=== PATIENT | female | born 1935 | race Caucasian/White ===

== ENCOUNTER → 2016-10-13 | Emergency (ER) | payer MEDICARE, BC ==
--- NOTE | 2016-10-13 16:27 | RAD ---
Indication: Near syncope. History of RIGHT breast cancer. Comparison: December 30, 2014 chest radiograph and December 03, 2013 CT. Technique: Sitting AP chest 1610 hours Report: Elevated lung volumes with both coarsening and rarefaction of the interstitial markings. Small upper lung zone calcified granulomas and small calcified hilar lymph nodes. No suspicious focal pulmonary lesion, pleural effusion, pneumothorax. Cardiomegaly. Unremarkable central pulmonary vasculature. RIGHT axillary surgical clips. IMPRESSION: Stigmata of chronic obstructive pulmonary disease and emphysema as well as prior granulomatous disease. Cardiomegaly. No acute cardiopulmonary process evident.
[2016-10-13 16:32] LABS: Hematocrit 38 % (35-47); Hemoglobin 12.5 g/dl (12.0-16.0); Mean Corpuscular HGB Conc 33 g/dl (31-36); Mean Corpuscular Hemoglobin 31 pg (27-31); Mean Corpuscular Volume 95 fL (80-97); Mean Platelet Volume 9 um3 (7.4-10.4); Red Blood Count 4.03 10^6/ul (4.0-5.4); Red Cell Distribution Width 14 % (10.5-15); White Blood Count 5.3 10^3/ul (3.5-10.8)
--- NOTE | 2016-10-13 16:41 | RAD ---
Indication: Near syncope. Comparison: February 13, 2011 MRI. Technique: Noncontrast CT vertex of skull through foramen magnum. Report: Unremarkable cerebral sulci. Mild prominence of the ventricles and cerebellar fissures reflecting atrophy. Patent basal cisterns. Decreased density in the periventricular and subcortical white matter while non-specific is most likely due to chronic microangiopathy corresponding with equivalent findings on the 2011 MRI. Negative for hobbs matter white matter obscuration, intra or extra-axial hemorrhage, or mass effect. Unremarkable orbital contents. Indolent thickening of the inner table of the frontal bone. No suspicious calvarial or skull base lesion evident. Grossly clear paranasal sinuses and mastoid air spaces. Unremarkable scalp. IMPRESSION: 1. No acute intracranial process evident. 2. Involutional change and extensive stigmata of probable chronic small vessel ischemic disease similar to the previous MRI.
[2016-10-13 16:47] LABS: BUN/Creatinine Ratio 29.4 (8-20); C Reactive Protein 8.82 mg/L (< 5.00); Calcium 9.7 mg/dL (8.6-10.3); EGFR Non-African American 64.5 (>60); Globulin 4.3 g/dL (2-4); Magnesium 2.1 mg/dL (1.9-2.7); Potassium 4.1 mmol/L (3.5-5.0); Total Bilirubin 0.3 mg/dL (0.2-1.0); Total Protein 8.3 g/dL (6.4-8.9)
[2016-10-13 16:48] LABS: Troponin I 0.02 ng/mL (<0.04)
[2016-10-13 17:15] LABS: TSH (Thyroid Stimulating Horm) 1.14 mcIU/mL (0.34-5.60)
[2016-10-13 17:22] VITALS: BP 151/65
[2016-10-13 17:22] LABS: Urine Bilirubin Negative (Negative); Urine Glucose Negative (Negative); Urine Nitrite Negative (Negative)
--- NOTE | 2016-10-13 18:29 | ED ---
Jacquelyn Lopez Rebecca, scribed for Davidson Gonzales MD on 10/13/16 at 1524 . Syncope/Near Syncope - HPI Summary HPI Summary: Pt is a 81 y/o F BIBA who presents to ED c/o dizziness s/p near syncopal episode. Sx began suddenly today and have been constant since onset. Pt reports dizziness leading to a near syncopal episode with her vision "blacking out." Episode occurred while standing. Sx alleviated by sitting down, aggravated by nothing. Reports feelin better than she did at onset. Denies LOC, CP, palpitations, SOB, CARO, blurry vision. Prior episodes of dizziness when she hasn' t eaten, but never with her vision blacking out. - History Of Current Complaint Time Seen by Provider: 10/13/16 15:15 Hx Obtained From: Patient Onset/Duration: Sudden Onset Timing: Constant Activity At Onset: Other - Standing Aggravating Factor(s): Nothing Alleviating Factor(s): Rest - sitting Associated Signs And Symptoms: Dizzy Related History: Similar Episode/Dx as - Allergies/Home Medications Allergies/Adverse Reactions: Allergies Allergy/AdvReac Type Severity Reaction Status Date / Time Sulfa Drugs Allergy Unknown Unknown Verified 01/11/14 15:14 Reaction Details PMH/Surg Hx/FS Hx/Imm Hx Endocrine/Hematology History: Denies: Hx Diabetes Cardiovascular History: Reports: Hx Hypertension, Hx Valvular Heart Disease Denies: Hx Congestive Heart Failure - possible Respiratory History: Reports: Other Respiratory Problems/Disorders - fluid in lungs Denies: Hx Asthma, Hx Chronic Obstructive Pulmonary Disease (COPD) History: Reports: Other Problems/Disorders - uti recently Musculoskeletal History: Reports: Other Musculoskeletal History - MS Neurological History: Reports: Other Neuro Impairments/Disorders - ms dx 1999 - Cancer History Cancer Type, Location and Year: breast ca right Hx Chemotherapy: No Hx Radiation Therapy: Yes - BREAST - Surgical History Surgery Procedure, Year, and Place: lumpectomy right 2004 with radiation, thyroidectomy, [place] 2003, tonsilectomy - Immunization History Date of Tetanus Vaccine: Up to date Date of Influenza Vaccine: Fall 2012 Infectious Disease History: No Infectious Disease History: Denies: Traveled Outside the [place] in Last 30 Days - Family History Known Family History: Positive: Hypertension - Mother, Other - MS - Social History Alcohol Use: None Substance Use Type: Reports: None Review of Systems Positive: Other - vision "blacking out" temporarily. Negative: Blurred Vision Negative: Palpitations, Chest Pain Negative: Shortness Of Breath Neurological: Other - Dizziness Positive: Syncope - Near syncope; Negative LOC. Negative: Headache All Other Systems Reviewed And Are Negative: Yes Physical Exam - Summary Physical Exam Summary: VITAL SIGNS: Reviewed. GENERAL: Patient is a well developed and nourished female who is lying comfortable in the stretcher. Patient is not in any acute respiratory distress. HEAD AND FACE: No signs of trauma. No ecchymosis, hematomas or skull depressions. No sinus tenderness. EYES: PERRLA, EOMI x 2, No injected conjunctiva, no nystagmus. No photophobia. EARS: Hearing grossly intact. Ear canals and tympanic membranes are within normal limits. MOUTH: Oropharynx within normal limits. NECK: Supple, trachea is midline, no adenopathy, no JVD, no carotid bruit, no c- spine tenderness, neck with full ROM. No meningeal signs, no Kernig's or brudzinskis signs. CHEST: Symmetric, no tenderness at palpation LUNGS: Clear to auscultation bilaterally. No wheezing or crackles. CVS: Regular rate and rhythm, S1 and S2 present, no murmurs or gallops appreciated. ABDOMEN: Soft, non-tender. No signs of distention. No rebound no guarding, and no masses palpated. Bowel sounds are normal. EXTREMITIES: FROM in all major joints, no edema, no cyanosis or clubbing. NEURO: Alert and oriented x 3. No acute neurological deficits. Speech is normal and follows commands. SKIN: Dry and warm Triage Information Reviewed: Yes Vital Signs On Initial Exam: Initial Vitals Temp Pulse Resp BP Pulse Ox 98.3 F 58 16 172/60 98 10/13/16 15:18 10/13/16 15:18 10/13/16 15:18 10/13/16 15:18 10/13/16 15:18 Vital Signs Reviewed: Yes Diagnostics - Vital Signs Vital Signs Temp Pulse Resp BP Pulse Ox 10/13/16 17:19 66 151/65 10/13/16 17:17 56 178/57 10/13/16 17:15 55 180/56 10/13/16 16:00 58 98 02/05/17 15:30 58 19 170/58 98 10/13/16 15:20 23 10/13/16 15:18 98.3 F 58 16 172/60 98 - Laboratory Lab Results: Lab Results 10/13/16 10/13/16 10/13/16 Range/Units 16:20 16:20 16:20 WBC 5.3 (3.5-10.8) 10^3/ul RBC 4.03 (4.0-5.4) 10^6/ul Hgb 12.5 (12.0-16.0) g/dl Hct 38 (35-47) % MCV 95 (80-97) fL MCH 31 (27-31) pg MCHC 33 (31-36) g/dl RDW 14 (10.5-15) % Plt Count 227 (150-450) 10^3/ul MPV 9 (7.4-10.4) um3 Neut % (Auto) 62.6 (38-83) % Lymph % (Auto) 22.1 L (25-47) % [place] % (Auto) 13.4 H (1-9) % Eos % (Auto) 0.5 (0-6) % Baso % (Auto) 1.4 (0-2) % Absolute Neuts (auto) 3.3 (1.5-7.7) 10^3/ul Absolute Lymphs (auto) 1.2 (1.0-4.8) 10^3/ul Absolute Monos (auto) 0.7 (0-0.8) 10^3/ul Absolute Eos (auto) 0 (0-0.6) 10^3/ul Absolute Basos (auto) 0.1 (0-0.2) 10^3/ul Absolute Nucleated RBC 0.01 10^3/ul Nucleated RBC % 0.1 Sodium 128 L (133-145) mmol/L Potassium 4.1 (3.5-5.0) mmol/L Chloride 95 L (101-111) mmol/L Carbon Dioxide 24 (22-32) mmol/L Anion Gap 9 (2-11) mmol/L BUN 25 H (6-24) mg/dL Creatinine 0.85 (0.51-0.95) mg/dL Est GFR ( Amer) 83.0 (>60) Est GFR (Non-Af Amer) 64.5 (>60) BUN/Creatinine Ratio 29.4 H (8-20) Glucose 108 H (70-100) mg/dL Lactic Acid 0.9 (0.5-2.0) mmol/L Calcium 9.7 (8.6-10.3) mg/dL Magnesium 2.1 (1.9-2.7) mg/dL Total Bilirubin 0.30 (0.2-1.0) mg/dL AST 18 (13-39) U/L ALT 14 (7-52) U/L Alkaline Phosphatase 89 (34-104) U/L Total Creatine Kinase 69 (10-223) U/L Troponin I 0.02 (<0.04) ng/mL C-Reactive Protein 8.82 H (< 5.00) mg/L B-Natriuretic Peptide ( - 100) pg/mL Total Protein 8.3 (6.4-8.9) g/dL Albumin 4.0 (3.2-5.2) g/dL Globulin 4.3 H (2-4) g/dL Albumin/Globulin Ratio 0.9 L (1-3) TSH 1.14 (0.34-5.60) mcIU/mL Urine Color Urine Appearance Urine pH (5-9) Ur Specific [place] (1.010-1.030) Urine Protein (Negative) Urine Ketones (Negative) Urine Blood (Negative) Urine Nitrate (Negative) Urine Bilirubin (Negative) Urine Urobilinogen (Negative) Ur Leukocyte Esterase (Negative) Urine Glucose (Negative) 10/13/16 10/13/16 Range/Units 16:20 17:05 WBC (3.5-10.8) 10^3/ul RBC (4.0-5.4) 10^6/ul Hgb (12.0-16.0) g/dl Hct (35-47) % MCV (80-97) fL MCH (27-31) pg MCHC (31-36) g/dl RDW (10.5-15) % Plt Count (150-450) 10^3/ul MPV (7.4-10.4) um3 Neut % (Auto) (38-83) % Lymph % (Auto) (25-47) % [place] % (Auto) (1-9) % Eos % (Auto) (0-6) % Baso % (Auto) (0-2) % Absolute Neuts (auto) (1.5-7.7) 10^3/ul Absolute Lymphs (auto) (1.0-4.8) 10^3/ul Absolute Monos (auto) (0-0.8) 10^3/ul Absolute Eos (auto) (0-0.6) 10^3/ul Absolute Basos (auto) (0-0.2) 10^3/ul Absolute Nucleated RBC 10^3/ul Nucleated RBC % Sodium (133-145) mmol/L Potassium (3.5-5.0) mmol/L Chloride (101-111) mmol/L Carbon Dioxide (22-32) mmol/L Anion Gap (2-11) mmol/L BUN (6-24) mg/dL Creatinine (0.51-0.95) mg/dL Est GFR ( Amer) (>60) Est GFR (Non-Af Amer) (>60) BUN/Creatinine Ratio (8-20) Glucose (70-100) mg/dL Lactic Acid (0.5-2.0) mmol/L Calcium (8.6-10.3) mg/dL Magnesium (1.9-2.7) mg/dL Total Bilirubin (0.2-1.0) mg/dL AST (13-39) U/L ALT (7-52) U/L Alkaline Phosphatase (34-104) U/L Total Creatine Kinase (10-223) U/L Troponin I (<0.04) ng/mL C-Reactive Protein (< 5.00) mg/L B-Natriuretic Peptide 239 H ( - 100) pg/mL Total Protein (6.4-8.9) g/dL Albumin (3.2-5.2) g/dL Globulin (2-4) g/dL Albumin/Globulin Ratio (1-3) TSH (0.34-5.60) mcIU/mL Urine Color Straw Urine Appearance Clear Urine pH 7.0 (5-9) Ur Specific [place] 1.006 L (1.010-1.030) Urine Protein Negative (Negative) Urine Ketones Negative (Negative) Urine Blood Negative (Negative) Urine Nitrate Negative (Negative) Urine Bilirubin Negative (Negative) Urine Urobilinogen Negative (Negative) Ur Leukocyte Esterase Negative (Negative) Urine Glucose Negative (Negative) Result Diagrams: 10/13/16 16:20 10/13/16 16:20 Lab Statement: Any lab studies that have been ordered have been reviewed, and results considered in the medical decision making process. - Radiology CXR Xray Interpretation: No Acute Changes - Stigmata of chronic obstructive pulmonary disease and emphysema as well as prior granulomatous disease. Cardiomegaly. No acute cardiopulmonary process evident. Radiology Interpretation Completed By: Radiologist - CT Brain CT CT Interpretation Completed By: Radiologist - EKG 1549 Cardiac Rate: Bradycardia - 56 bpm EKG Rhythm: Sinus Bradycardia ST Segment: Non-Specific - No ST elevations, slight ST depressions in V5 and V6 Re-Evaluation - Re-Evaluation First Eval Re-Evaluation Time: 17:37 Change: Improved Comment: Pt is feeling significantly better. Course/Dx Assessment/Plan: Pt is a 81 y/o F BIBA who presents to ED c/o dizziness s/p near syncopal episode. Sx began suddenly today and have been constant since onset. Pt reports dizziness leading to a near syncopal episode with her vision "blacking out." Episode occurred while standing. Sx alleviated by sitting down, aggravated by nothing. Reports feeling better than she did at onset. Denies LOC , CP, palpitations, SOB, CARO, blurry vision. Prior episodes of dizziness when she hasn't eaten, but never with her vision blacking out. Patient reports that when she does not eat she has this frequent fainting episodes. Today she was trying to prevent this issue and drank milk but right before she finish drinking the milk she had this episode which lasted for a few minutes. Since she has not have any other episodes and she is back to normal. She has been asymptomatic n the ED. Blood work wnl except for her chronic hyponatremia and slight increase in her glucose. Head CT impression: no acute intracranial pathology. CXR impression: Stigmata for COPD, cardiomegaly and no acute findings. Orthostatics are found wnl. She is eating and drinking in the ED w/ o any other symptoms. She is ambulating w/o any other complaint. I discussed all the findings and test results with the patient. Patient was instructed to return to the emergency room immediately if any of the symptoms return or worsens. Patient understands and agrees. Plan of care was discussed with the patient and patient understands and agrees with the plan of care. All questions were answered at patient satisfaction. There were no further complaints or concerns. Patient is alert and oriented x 3. Patient vital signs are stable. Patient is to follow up with primary care physician in the next 2 to 3 days. Patient understands and agrees. - Diagnoses Differential Diagnosis/HQI/PQRI: Positive: Cerebral Vascular Accident, Hypoglycemia, Vasovagal Episode Provider Diagnoses: Vasovagal episode Discharge - Discharge Plan Condition: Stable Disposition: HOME Patient Education Materials: Syncope (ED) Referrals: Pallavi Yan MD [Primary Care Provider] - 3 Days (Follow up with your primary care physician in the next 3 days. ) The documentation as recorded by the Jacquelyn lara Rebecca accurately reflects the service I personally performed and the decisions made by , Davidson Gonzales MD.
== END | disposition home or self-care (01) ==
LOC: ED 15:08
DX: R55 Syncope and collapse (principal); R42 Dizziness and giddiness
CPT/HCPCS: 36415; 70450; 71010; 80053; 81003; 82550; 83605; 83735; 83880; 84443; 84484; 85025; 86140; 93005; 99283

== ENCOUNTER 2016-10-19 10:17 | Emergency (ER) | payer MEDICARE, BC ==
[2016-10-19 12:40] LABS: Hematocrit 37 % (35-47); Hemoglobin 12.4 g/dl (12.0-16.0); Mean Corpuscular HGB Conc 33 g/dl (31-36); Mean Corpuscular Hemoglobin 32 pg (27-31); Mean Corpuscular Volume 94 fL (80-97); Mean Platelet Volume 9 um3 (7.4-10.4); Red Blood Count 3.93 10^6/ul (4.0-5.4); Red Cell Distribution Width 14 % (10.5-15); White Blood Count 6.7 10^3/ul (3.5-10.8)
[2016-10-19 12:45] LABS: Urine Bilirubin Negative (Negative); Urine Glucose Negative (Negative); Urine Nitrite Negative (Negative)
[2016-10-19 12:52] LABS: Albumin 4.1 g/dL (3.2-5.2); BUN/Creatinine Ratio 25.7 (8-20); Calcium 9.7 mg/dL (8.6-10.3); EGFR African American 103.8 (>60); EGFR Non-African American 80.7 (>60); Globulin 4.5 g/dL (2-4); Magnesium 2.1 mg/dL (1.9-2.7); Potassium 4.1 mmol/L (3.5-5.0); Total Bilirubin 0.4 mg/dL (0.2-1.0); Total Protein 8.6 g/dL (6.4-8.9)
[2016-10-19 13:22] LABS: TSH (Thyroid Stimulating Horm) 1.11 mcIU/mL (0.34-5.60)
[2016-10-19 14:49] VITALS: BP 128/75
--- NOTE | 2016-10-19 16:07 | ED ---
Syncope/Near Syncope - HPI Summary HPI Summary: Patient arrives to ED with CC of feeling weak and fatigued. Denies LOC, syncope or blacking out. She was seen in ED last week for similar symptoms where a CT brain, UA and labs were obtained. All WNL. She was instructed to follow up with PCP. She was seen by her PCP 2 days ago and had a good check up. Patient states she told her PCP she felt weak since being on so many HTN medications and her DBP was too low. Patient takes her BP at home and this number has been running between 55-65 per patient. She prefers to not be on so many and states this is the reason she is weak. She has a PMHx of relapsing remitting MS which she is followed by Dr. Araya and states this has been stable for years. MS causes her L leg and R arm to have generalized weakness, and this has not changed in the last several years. She uses a walker at baseline is unable to walk far without feeling weak. Her PCP is Dr. Yan and states she is able to follow up with her next week if needed. She is also followed by Dr. George for cardiology and has appt November 06. - History Of Current Complaint Chief Complaint: EDGeneral Time Seen by Provider: 10/19/16 10:48 Hx Obtained From: Patient Onset/Duration: Sudden Onset Timing: Constant Context: Other Activity At Onset: Unknown Associated Head Trauma: Yes Aggravating Factor(s): Nothing Alleviating Factor(s): Nothing Associated Signs And Symptoms: Lightheadedness, Weakness Related History: Similar Episode/Dx as - last week episode of weakness Frequency: Episodes x___ - 2, Episodes Lasting ____ (in Mins/Days/Weeks/Years) - 4-5 minutes/2 days over course of 1 week - Risk Factors Cardiac Risk Factors: Hypertension, Elevated Lipids, Family History, CAD Dysrhythmia Risk Factors: Age Greater Than 45, Underlying CAD Risk Factor(s): ASA, Plavix - Allergies/Home Medications Allergies/Adverse Reactions: Allergies Allergy/AdvReac Type Severity Reaction Status Date / Time Sulfa Drugs Allergy Unknown Unknown Verified 01/11/14 15:14 Reaction Details PMH/Surg Hx/FS Hx/Imm Hx Previously Healthy: Yes - Patient has MS, CAD, HTN Endocrine/Hematology History: Denies: Hx Diabetes Cardiovascular History: Reports: Hx Hypertension, Hx Valvular Heart Disease Denies: Hx Congestive Heart Failure - possible Respiratory History: Reports: Other Respiratory Problems/Disorders - fluid in lungs Denies: Hx Asthma, Hx Chronic Obstructive Pulmonary Disease (COPD) History: Reports: Other Problems/Disorders - uti recently Musculoskeletal History: Reports: Other Musculoskeletal History - MS Neurological History: Reports: Other Neuro Impairments/Disorders - ms dx 1999 - Cancer History Cancer Type, Location and Year: breast ca right Hx Chemotherapy: No Hx Radiation Therapy: Yes - BREAST - Surgical History Surgery Procedure, Year, and Place: lumpectomy right 2004 with radiation, thyroidectomy, he[place] 2003, tonsilectomy - Immunization History Date of Tetanus Vaccine: Up to date Date of Influenza Vaccine: Fall 2012 Infectious Disease History: No Infectious Disease History: Denies: Traveled Outside the [place] in Last 30 Days - Family History Known Family History: Positive: Hypertension - Mother, Other - MS - Social History Occupation: Retired Lives: With Family Alcohol Use: None Hx Substance Use: No Substance Use Type: Reports: None Smoking Status (MU): Never Smoked Tobacco Review of Systems Positive: Fatigue Eyes: Negative Cardiovascular: Negative Respiratory: Negative Gastrointestinal: Negative Positive: no symptoms reported, see HPI Musculoskeletal: Negative Skin: Negative Positive: Weakness Psychological: Normal All Other Systems Reviewed And Are Negative: Yes Physical Exam Triage Information Reviewed: Yes Vital Signs On Initial Exam: Initial Vitals Temp Pulse Resp BP Pulse Ox 98.1 F 64 15 185/60 99 10/19/16 10:20 10/19/16 10:20 10/19/16 10:20 10/19/16 10:20 10/19/16 10:20 Vital Signs Reviewed: Yes Appearance: Positive: Well-Appearing, No Pain Distress, Cachectic Skin: Positive: Warm, Skin Color Reflects Adequate Perfusion, Dry Head/Face: Positive: Normal Head/Face Inspection Eyes: Positive: Normal, FRANCES Neck: Positive: Nontender Respiratory/Lung Sounds: Positive: Breath Sounds Present, Decreased Breath Sounds Cardiovascular: Positive: Normal Abdomen Description: Positive: Nontender, No Organomegaly, Soft Bowel Sounds: Positive: Present Musculoskeletal: Positive: Normal, Limited @ - strength limited at baseline d/t MS Neurological: Positive: Speech Normal Psychiatric: Positive: Normal AVPU Assessment: Verbal (Reponds To) - [place] Coma Scale Coma Scale Total: 15 Diagnostics - Vital Signs Vital Signs Temp Pulse Resp BP Pulse Ox 10/19/16 14:49 97.9 F 10/19/16 14:30 66 17 128/75 97 10/19/16 14:00 68 17 166/59 98 10/19/16 13:00 156/64 10/19/16 12:30 64 16 156/67 96 10/19/16 12:00 62 163/57 97 10/19/16 11:30 65 148/53 96 10/19/16 11:27 63 96 10/19/16 10:20 98.1 F 64 15 185/60 99 - Laboratory Lab Results: Lab Results 10/19/16 10/19/16 10/19/16 Range/Units 11:00 12:23 12:23 WBC 6.7 (3.5-10.8) 10^3/ul RBC 3.93 L (4.0-5.4) 10^6/ul Hgb 12.4 (12.0-16.0) g/dl Hct 37 (35-47) % MCV 94 (80-97) fL MCH 32 H (27-31) pg MCHC 33 (31-36) g/dl RDW 14 (10.5-15) % Plt Count 234 (150-450) 10^3/ul MPV 9 (7.4-10.4) um3 Neut % (Auto) 69.5 (38-83) % Lymph % (Auto) 21.0 L (25-47) % [place] % (Auto) 7.7 (1-9) % Eos % (Auto) 0.6 (0-6) % Baso % (Auto) 1.2 (0-2) % Absolute Neuts (auto) 4.6 (1.5-7.7) 10^3/ul Absolute Lymphs (auto) 1.4 (1.0-4.8) 10^3/ul Absolute Monos (auto) 0.5 (0-0.8) 10^3/ul Absolute Eos (auto) 0 (0-0.6) 10^3/ul Absolute Basos (auto) 0.1 (0-0.2) 10^3/ul Absolute Nucleated RBC 0 10^3/ul Nucleated RBC % 0 INR (Anticoag Therapy) 0.85 L (0.89-1.11) Sodium (133-145) mmol/L Potassium (3.5-5.0) mmol/L Chloride (101-111) mmol/L Carbon Dioxide (22-32) mmol/L Anion Gap (2-11) mmol/L BUN (6-24) mg/dL Creatinine (0.51-0.95) mg/dL Est GFR ( Amer) (>60) Est GFR (Non-Af Amer) (>60) BUN/Creatinine Ratio (8-20) Glucose (70-100) mg/dL Lactic Acid (0.5-2.0) mmol/L Calcium (8.6-10.3) mg/dL Magnesium (1.9-2.7) mg/dL Total Bilirubin (0.2-1.0) mg/dL AST (13-39) U/L ALT (7-52) U/L Alkaline Phosphatase (34-104) U/L Total Protein (6.4-8.9) g/dL Albumin (3.2-5.2) g/dL Globulin (2-4) g/dL Albumin/Globulin Ratio (1-3) TSH (0.34-5.60) mcIU/mL Urine Color Straw Urine Appearance Clear Urine pH 7.0 (5-9) Ur Specific [place] 1.006 L (1.010-1.030) Urine Protein Negative (Negative) Urine Ketones Negative (Negative) Urine Blood Negative (Negative) Urine Nitrate Negative (Negative) Urine Bilirubin Negative (Negative) Urine Urobilinogen Negative (Negative) Ur Leukocyte Esterase Negative (Negative) Urine Glucose Negative (Negative) 10/19/16 10/19/16 Range/Units 12:23 12:23 WBC (3.5-10.8) 10^3/ul RBC (4.0-5.4) 10^6/ul Hgb (12.0-16.0) g/dl Hct (35-47) % MCV (80-97) fL MCH (27-31) pg MCHC (31-36) g/dl RDW (10.5-15) % Plt Count (150-450) 10^3/ul MPV (7.4-10.4) um3 Neut % (Auto) (38-83) % Lymph % (Auto) (25-47) % [place] % (Auto) (1-9) % Eos % (Auto) (0-6) % Baso % (Auto) (0-2) % Absolute Neuts (auto) (1.5-7.7) 10^3/ul Absolute Lymphs (auto) (1.0-4.8) 10^3/ul Absolute Monos (auto) (0-0.8) 10^3/ul Absolute Eos (auto) (0-0.6) 10^3/ul Absolute Basos (auto) (0-0.2) 10^3/ul Absolute Nucleated RBC 10^3/ul Nucleated RBC % INR (Anticoag Therapy) (0.89-1.11) Sodium 130 L (133-145) mmol/L Potassium 4.1 (3.5-5.0) mmol/L Chloride 96 L (101-111) mmol/L Carbon Dioxide 26 (22-32) mmol/L Anion Gap 8 (2-11) mmol/L BUN 18 (6-24) mg/dL Creatinine 0.70 (0.51-0.95) mg/dL Est GFR ( Amer) 103.8 (>60) Est GFR (Non-Af Amer) 80.7 (>60) BUN/Creatinine Ratio 25.7 H (8-20) Glucose 109 H (70-100) mg/dL Lactic Acid 0.8 (0.5-2.0) mmol/L Calcium 9.7 (8.6-10.3) mg/dL Magnesium 2.1 (1.9-2.7) mg/dL Total Bilirubin 0.40 (0.2-1.0) mg/dL AST 16 (13-39) U/L ALT 12 (7-52) U/L Alkaline Phosphatase 90 (34-104) U/L Total Protein 8.6 (6.4-8.9) g/dL Albumin 4.1 (3.2-5.2) g/dL Globulin 4.5 H (2-4) g/dL Albumin/Globulin Ratio 0.9 L (1-3) TSH 1.11 (0.34-5.60) mcIU/mL Urine Color Urine Appearance Urine pH (5-9) Ur Specific [place] (1.010-1.030) Urine Protein (Negative) Urine Ketones (Negative) Urine Blood (Negative) Urine Nitrate (Negative) Urine Bilirubin (Negative) Urine Urobilinogen (Negative) Ur Leukocyte Esterase (Negative) Urine Glucose (Negative) Result Diagrams: 10/19/16 12:23 10/19/16 12:23 Lab Statement: Any lab studies that have been ordered have been reviewed, and results considered in the medical decision making process. Course/Dx Course Of Treatment: Patient seen in ED last week for similar complaint of weakness. CT brain and labs WNL. Patient encouraged to f/u with PCP. Patient saw PCP 2 days ago. Today with same complaint and stating her HTN medications are making her feel weak. She is encouraged to f/u with PCP Dr Yan or clinical research management associate Dr George again for possible med changes. Labs today WNL, urine is negative. Followed by Dr Araya for MS, although this is less likely an MS flare d/t her long history of MS stability. - Diagnoses Differential Diagnosis/HQI/PQRI: Positive: Cerebral Vascular Accident, Coronary Artery Disease, Hypoglycemia, Vasovagal Episode Provider Diagnoses: Weakness Discharge - Discharge Plan Condition: Stable Disposition: HOME Patient Education Materials: Hypotension (ED) Referrals: Pallavi Yan MD [Primary Care Provider] - Additional Instructions: As discussed, lab work was all within normal limits. Follow up with your PCP and clinical research management associate for potential BP medication change. Today, we did not change any of your medications. You do not have hypotension, however I have given you information per our discussion.
== END 2016-10-19 14:49 | disposition home or self-care (01) ==
LOC: ED 10:17
DX: R53.1 Weakness (principal); R42 Dizziness and giddiness; R53.83 Other fatigue
CPT/HCPCS: 36415; 80053; 81003; 83605; 83735; 84443; 85025; 85610; 93005; 99283

== ENCOUNTER 2017-04-18 06:06 | Inpatient (IN) | payer MEDICARE, BC ==
[2017-04-18] MEDS ORDERED: Morphine INJ* 2 MG/ML 1 ML SYRINGE IV ONE (06:23)
[2017-04-18] MEDS ORDERED: Morphine INJ* 4 MG/ML 1 ML SYRINGE IV ONE (07:17)
[2017-04-18] MEDS ORDERED: Ondansetron INJ* 2 MG/ML VIAL IV ONE (07:17)
--- NOTE | 2017-04-18 07:58 | RAD ---
HISTORY: Fall, left arm pain COMPARISONS: None VIEWS: 2, Frontal internal rotation and external rotation views of the left humerus FINDINGS: BONE DENSITY: Normal. BONES: There is a probable fracture of the greater tuberosity of the humerus JOINTS: There is no arthropathy. ALIGNMENT: There is anterior-inferior dislocation of the humerus with respect to the glenoid fossa SOFT TISSUES: Unremarkable. OTHER FINDINGS: None. IMPRESSION: LEFT SHOULDER DISLOCATION WITH PROBABLE FRACTURE OF THE GREATER TUBEROSITY
[2017-04-18] MEDS ORDERED: NS 0.9% 250 ML* 250 ML IV SCH (08:00)
[2017-04-18] MEDS ORDERED: Midazolam* 1 MG/ML 2 ML VIAL (2 MG) ONE (08:37)
[2017-04-18] MEDS ORDERED: KETAMINE HCL* 50 MG/ML 10 ML VIAL ONE (08:37)
[2017-04-18] MEDS ORDERED: fentaNYL* 50 MCG/ML 2 ML VIAL (100 MCG VIAL) ONE (08:37)
[2017-04-18] MEDS ORDERED: Lidocaine 2% PF * 5 ML VIAL ONE (09:22)
[2017-04-18] MEDS ORDERED: Metoprolol Tartrate IV* 1 MG/ML 5 ML VIAL ONE (09:22)
--- NOTE | 2017-04-18 09:34 | RAD ---
HISTORY: Post reduction COMPARISONS: April 18, 2017 at 6:51 AM VIEWS: 1, single frontal view of the left shoulder FINDINGS: BONE DENSITY: There is diffuse osteopenia. BONES: Again noted is a probable fracture of the greater tuberosity JOINTS: There is no arthropathy. ALIGNMENT: On this single projection, there has been interval reduction of the left shoulder dislocation SOFT TISSUES: Unremarkable. OTHER FINDINGS: None. IMPRESSION: LIMITED SINGLE PROJECTION. INTERVAL REDUCTION OF LEFT SHOULDER DISLOCATION. PROBABLE FRACTURE OF THE GREATER TUBEROSITY
--- NOTE | 2017-04-18 12:05 | RAD ---
INDICATION: Left shoulder dislocation. Postreduction COMPARISON: AP left shoulder same date TECHNIQUE: A single Y view is submitted. FINDINGS: The Y-view shows that the humeral head appears normally positioned.
[2017-04-18 12:45] LABS: BUN/Creatinine Ratio 38.4 (8-20); Blood Urea Nitrogen 28 mg/dL (6-24); CO2 Carbon Dioxide 19 mmol/L (22-32); Chloride 101 mmol/L (101-111); EGFR African American 98.7 (>60); EGFR Non-African American 76.7 (>60); Glucose 116 mg/dL (70-100); Sodium 130 mmol/L (133-145)
[2017-04-18 12:47] LABS: Anion Gap 10 mmol/L (2-11)
[2017-04-18] MEDS ORDERED: oxyCODONE TAB* 5 MG TAB PO PRN (13:33)
[2017-04-18] MEDS ORDERED: Ibuprofen TAB* 600 MG PO PRN (13:33)
[2017-04-18] MEDS ORDERED: Amantadine LIQ* 50 MG/5 ML UDC PO PRN (13:43)
[2017-04-18 13:53] LABS: Hematocrit 37 % (35-47); Hemoglobin 12.2 g/dl (12.0-16.0); Mean Corpuscular HGB Conc 33 g/dl (31-36); Mean Corpuscular Hemoglobin 32 pg (27-31); Mean Corpuscular Volume 98 fL (80-97); Mean Platelet Volume 9 um3 (7.4-10.4); Red Blood Count 3.79 10^6/ul (4.0-5.4); Red Cell Distribution Width 14 % (10.5-15); White Blood Count 10.6 10^3/ul (3.5-10.8)
--- NOTE | 2017-04-18 14:08 | RAD ---
HISTORY: Cough COMPARISONS: December 26, 2014 VIEWS:1: Single frontal portable view of the chest at 2:00 PM FINDINGS: LINES AND TUBES: None. CARDIOMEDIASTINAL SILHOUETTE: The cardiomediastinal silhouette is normal for portable technique. PLEURA: The costophrenic angles are sharp. No pleural abnormalities are noted. LUNG PARENCHYMA: There is inflation. There is prominence of the central pulmonary vasculature ABDOMEN: The upper abdomen is clear. There is no subphrenic gas. BONES AND SOFT TISSUES: Degenerative changes are noted along the spine. IMPRESSION: HYPERINFLATION SUGGESTIVE OF COPD. PULMONARY VASCULAR CONGESTION.
[2017-04-18] MEDS: Heparin VIAL(*) 5000 UNITS/ML VIAL (FIVE THOUSAND) SUBCUT SCH ×2 (16:30→21:04)
--- NOTE | 2017-04-18 20:40 | HP ---
AMENDED REPORT NOW INCLUDES COSIGNER DESIGNATION - ESIGNED BEFORE ADJUSTMENT CC: Flor Romero NP * HISTORY AND PHYSICAL: DATE OF ADMISSION: 04/18/17 PRIMARY CARE PROVIDER: Flor Romero NP ATTENDING PHYSICIAN: Dr. Carlito Craig * (dictation provided by Esther Deleon NP ) CHIEF COMPLAINT: Fall with left shoulder pain. HISTORY OF PRESENT ILLNESS: Ms. Damian is an 82-year-old female with a past medical history of peripheral vascular disease, with angioplasty, on Plavix; hypertension; hyperlipidemia; multiple sclerosis; multivalvular disease with episodes of near syncope earlier this year, who presents today to the hospital with concern for fall at home resulting in left shoulder pain. Ms. Damian states that over the past couple of days, she has been feeling a little unwell. She reports having a cough and feeling weaker than usual. She had no fever, no chest pain, no shortness of breath, no nausea, vomiting, diarrhea, or abdominal pain, and felt that perhaps probably she had a mild viral illness. This morning at 4:00 a.m., she was getting up to go to the bathroom. She states that usually at that time in the morning, she is very weak related to her multiple sclerosis. She fell in the bathroom and had an immediate severe pain in her left shoulder. EMS was called and the patient was brought to the emergency room. Ms. Damian has had episodes of near syncope recently, for which she has been following with Dr. George. That workup has included an echocardiogram and Holter monitoring. The Holter monitoring notes that perhaps she has some secondary AV block, but the patient deferred further workup with implantable monitor, etc, as she had felt that she was doing better. Ms. Damian did not believe that she has synopsized and did not feel that she was lightheaded prior to the fall. She feels that it was purely mechanical fall. She states that she has help on a daily basis with an aide, who comes in to help her have breakfast in bed and to take her medications on a daily basis, so she can gain some strength in the morning before getting up to ambulate. In the emergency room, Ms. Damian's labs show a sodium of 130. She does have a history of low sodium and this is consistent with that. Her CBC is pending at this time. She did have a humerus x-ray that showed a left shoulder dislocation with a greater tuberosity fracture. This was reduced in the emergency room successfully by the ED providers. PAST MEDICAL HISTORY: 1. Hyperlipidemia. 2. Hypertension. 3. COPD versus question of chronic interstitial lung disease. 4. Peripheral vascular disease, status post angioplasty to the left leg. 5. Breast cancer, status post radiation and lumpectomy. 6. History of thyroid nodule. 7. Tonsillectomy. 8. Multiple sclerosis, diagnosed in 1970. 9. History of recent near syncopal episodes with echo and AV monitoring. 10. History of restrictive cardiomyopathy. 11. Moderate aortic stenosis. 12. Moderate mitral regurgitation. 13. Wpii-dx-gtsscdii tricuspid regurgitation. MEDICATIONS: 1. Tylenol p.r.n. 2. Calcium carbonate with vitamin D 1 tab as directed. 3. Cetirizine 5 mg p.o. daily. 4. Tylenol PM 2 tabs p.o. at bedtime. 5. Interferon 30 mcg IM weekly. 6. Citrucel Fiber laxative 1 tablespoon p.o. q.a.m. 7. Amantadine 100 mg in the a.m. and 50 mg at noon p.r.n. for increased energy. 8. Ascorbic acid 500 mg p.o. daily. 9. Atenolol 100 mg p.o. daily. 10. Cholecalciferol 1000 units p.o. q.a.m. 11. Clopidogrel 75 mg p.o. daily. 12. Diltiazem XR 240 mg p.o. q.a.m. 13. Gabapentin 600 mg p.o. bedtime. 14. Levothyroxine 50 mcg p.o. q.a.m. 15. Ritalin 10 mg p.o. daily. 16. MiraLAX 17 g p.o. daily p.r.n. constipation. 17. Ramipril 5 mg p.o. b.i.d. ALLERGIES: To [employer]. FAMILY HISTORY: The patient reports her mother at 93 of old age. Father of [place] at 72. SOCIAL HISTORY: No prior alcohol, tobacco, or drug use. The patient lives alone, but has aide services on a daily basis to help in the morning. She states that her daughters, Esther and Shayla, would be the healthcare proxies. REVIEW OF SYSTEMS: A 14-point review of systems was completed with Ms. Damian and all those not mentioned above were negative. PHYSICAL EXAMINATION GENERAL: Ms. Damian is sitting in the bed. She is in no acute distress. VITAL SIGNS: Temperature 97.4, heart rate 60, respiratory rate 11, O2 saturation 100% on room air, blood pressure 152/72. LUNGS: Clear to auscultation bilaterally with no accessory muscle use and good aeration. HEART: S1, S2. No murmur, rub, or gallop. ABDOMEN: Soft, nontender with bowel sounds positive x4. EXTREMITIES: No cyanosis or edema. NEURO: She is alert, she is oriented x3. She is not able to move the left arm secondary to the sling. She has good strength in the right upper extremity and right lower extremity, with some diminished strength in left lower extremity, which the patient says is chronic as she has some weakness along the left side normally. She has no facial asymmetry or focal weakness. Extraocular movements are intact. She has a mild tremor noted when speaking. SKIN: Intact. DIAGNOSTIC STUDIES/LAB DATA: CBC is pending. Sodium is 130, potassium is pending, chloride 101, serum bicarbonate 19, BUN 28, creatinine 0.73, glucose 116. Humerus x-ray shows a left shoulder dislocation with the greater tuberosity fracture. It shows that this has been reduced on the followup x-rays. Chest x-ray is pending. EKG shows a heart rate of 60 with no evidence of ischemia. ASSESSMENT AND PLAN: Ms. Damian is an 82-year-old female with the past medical history of peripheral vascular disease, on Plavix, as well as multivalvular disease and recent episodes of near syncope, who presents today to the hospital with concern for mechanical fall at home, resulting in a left shoulder dislocation, now reduced in the ED. Our plans are for observation in the hospital for the followin. Left shoulder fracture: The patient has a history of multiple sclerosis, she is only able to ambulate with the walker. She is right hand dominant however, she is not able to use the walker now that her left arm is in a sling. I did review this with Dr. Vee from orthopedic services, who confirmed a 3 - to 6-week time frame for immobilization of the left arm. The patient will have pain medications p.r.n. We will try to avoid narcotics if possible. In the meantime, we will be looking to augment her services at home and/or determine if short-term rehab will be appropriate given her inability to care for herself in the short term. 2. History of multiple sclerosis: Plan to continue her home medications of amantadine. The patient reports having 2 days of mild cough and weakness, which she says are now resolved. This is likely contributed to her weakness and fall this morning. She is evidencing no hypoxia. Her white blood cell count is pending as well as the chest x-ray. I have a low suspicion for pneumonia, but we will be following up on these parameters and starting antibiotics as indicated. 3. Hypertension: Continue atenolol and Cardizem. 4. Peripheral vascular disease: Continue Plavix. 5. Hypothyroidism: Continue levothyroxine. 6. DVT prophylaxis: With heparin subcu. 7. Disposition. To the medical floor. TIME SPENT: Approximately 60 minutes was spent on the admission of this patient , more than half time spent with the patient at the bedside reviewing the events leading up to this hospitalization, performing the physical examination, and reviewing my plan of care. ESTHER DELEON NP ORIGINAL ESIGN DATE/TIME: 04/20/17 1438 [id number]/CPS #: [id number] WILLIAN
[2017-04-18] MEDS: Gabapentin CAP(*) 300 MG PO SCH (21:05)
[2017-04-18] MEDS: Ramipril CAP* 5 MG PO SCH (21:05)
[2017-04-18] MEDS ORDERED: diPHENhydraMINE PO* 25 MG PO PRN (21:34)
[2017-04-19] MEDS: Levothyroxine TAB* 50 MCG TAB PO SCH (05:29)
[2017-04-19] MEDS: Heparin VIAL(*) 5000 UNITS/ML VIAL (FIVE THOUSAND) SUBCUT SCH ×3 (05:29→22:04)
[2017-04-19] MEDS: Ramipril CAP* 5 MG PO SCH ×2 (08:14→20:01)
[2017-04-19] MEDS: Ascorbic Acid TAB* 500 MG PO SCH (08:14)
[2017-04-19] MEDS: Methylphenidate TAB* 10 MG PO SCH (08:14)
[2017-04-19] MEDS: Cholecalciferol TAB* 1000 UNITS PO SCH (08:14)
[2017-04-19] MEDS: Atenolol TAB* 50 MG PO SCH (08:14)
[2017-04-19] MEDS: Clopidogrel TAB* 75 MG PO SCH (08:14)
[2017-04-19] MEDS: Amantadine LIQ* 50 MG/5 ML UDC PO SCH ×2 (08:15→14:08)
[2017-04-19] MEDS: Diltiazem CD CAP* 240 MG PO SCH (08:15)
--- NOTE | 2017-04-19 12:18 | PN ---
Subjective Date of Service: 04/19/17 Interval History: Patient seen this afternoon. Not complaining of much pain. Has been in immobilizer. States fall was mechanical. Family History: Unchanged from Admission Social History: Unchanged from Admission Past Medical History: Unchanged from Admission Objective Active Medications: Acetaminophen (Tylenol Tab*) 650 mg PO Q6H PRN Amantadine HCl (Symmetrel Liq*) 100 mg PO QAM ANKUR Amantadine HCl (Symmetrel Liq*) 50 mg PO 1200 ANKUR Ascorbic Acid (Vitamin C Tab*) 500 mg PO DAILY ANKUR Atenolol (Tenormin Tab*) 100 mg PO DAILY ANKUR Cholecalciferol (Vitamin D Tab*) 1,000 units PO QAM ANKUR Clopidogrel Bisulfate (Plavix Tab*) 75 mg PO DAILY ANKUR Diltiazem HCl (Cardizem Cd Cap*) 240 mg PO QAM ANKUR Diphenhydramine HCl (Benadryl Po*) 25 mg PO BEDTIME PRN Gabapentin (Neurontin Cap(*)) 600 mg PO BEDTIME ANKUR Heparin Sodium (Porcine) (Heparin Vial(*)) 5,000 units SUBCUT Q8HR ANKUR Ibuprofen (Motrin Tab*) 600 mg PO Q6H PRN Levothyroxine Sodium (Synthroid Tab*) 50 mcg PO 0600 ANKUR Methylphenidate HCl (Ritalin Tab*) 10 mg PO DAILY ANKUR Oxycodone HCl (Roxycodone Tab*) 5 mg PO Q4H PRN Polyethylene Glycol/Electrolytes (Miralax*) 17 gm PO DAILY PRN Ramipril (Altace Cap*) 5 mg PO BID [facility] Vital Signs 04/18/17 04/18/17 04/18/17 14:58 15:05 15:20 Temperature 98.1 F 98 F Pulse Rate 76 72 Respiratory 16 16 16 Rate Blood Pressure 190/87 180/58 (mmHg) O2 Sat by Pulse 94 Oximetry 04/18/17 04/18/17 04/18/17 19:57 21:05 21:15 Temperature 98.4 F Pulse Rate 80 Respiratory 20 16 Rate Blood Pressure 156/60 (mmHg) O2 Sat by Pulse 90 86 Oximetry 04/19/17 04/19/17 04/19/17 03:19 07:19 11:11 Temperature 98.9 F 99.7 F 97.4 F Pulse Rate 86 91 79 Respiratory 16 19 20 Rate Blood Pressure 146/61 149/61 105/46 (mmHg) O2 Sat by Pulse 95 99 95 Oximetry Oxygen Devices in Use Now: None Appearance: Elderly, F, sitting in chair in NAD Eyes: No Scleral Icterus Ears/Nose/Mouth/Throat: Mucous Membranes Moist Neck: NL Appearance and Movements; NL JVP Respiratory: Symmetrical Chest Expansion and Respiratory Effort, Clear to Auscultation Cardiovascular: NL Sounds; No Murmurs; No JVD, RRR Abdominal: NL Sounds; No Tenderness; No Distention Lymphatic: No Cervical Adenopathy Extremities: - - LUE in immobilizer Skin: No Rash or Ulcers Neurological: Alert and Oriented x 3, - - mild tremor, chronic MS weakness on L Result Diagrams: 04/18/17 13:45 04/18/17 13:45 Assess/Plan/Problems-Billing Assessment: L shoulder dislocation and L humerus greater tuberosity fx in an 82 yo F with hx of multiple sclerosis, HTN, HLD, PVD - Patient Problems (1) Dislocation of shoulder, left, closed Current Visit: Yes Comment: With likely L humerus greater tuberosity fx. Will get CT scan to confirm fracture. Dr. Vee notified on admission, recommended immobilization for 3-6 weeks and outpatient follow-up. Analgesia prn. PT eval done, will need CORDELIA. (2) Multiple sclerosis Current Visit: Yes Comment: Continue Amantadine (3) HTN (hypertension) Current Visit: Yes Comment: Continue Atenolol and Ramipril (4) PVD (peripheral vascular disease) Current Visit: Yes Comment: Continue Plavix (5) Hypothyroidism Current Visit: Yes Comment: Continue synthroid (6) DVT prophylaxis Current Visit: Yes Comment: HSQ Status and Disposition: Inpatient, will need placement
[2017-04-19] MEDS ORDERED: INTERFERON BETA 30 MCG IM SCH (14:45)
--- NOTE | 2017-04-19 15:03 | RAD ---
Indication: Dislocation left humerus. CT of the left shoulder was obtained in the axial plane. Coronal and sagittal reconstructed images were obtained. There is fracture which is mildly comminuted of the greater tuberosity of the left humeral head. No extension into the left tuberosity is noted. Degenerative changes of the glenohumeral joint are noted. The clavicle is intact. Scapula and the visualized ribs are unremarkable. IMPRESSION: Mildly comminuted fracture greater tuberosity left humerus without significant displacement.
[2017-04-19] MEDS: Gabapentin CAP(*) 300 MG PO SCH (20:01)
[2017-04-20] MEDS: Levothyroxine TAB* 50 MCG TAB PO SCH (05:30)
[2017-04-20] MEDS: Heparin VIAL(*) 5000 UNITS/ML VIAL (FIVE THOUSAND) SUBCUT SCH ×3 (05:30→21:14)
[2017-04-20] MEDS: Amantadine LIQ* 50 MG/5 ML UDC PO SCH ×2 (08:48→12:03)
[2017-04-20] MEDS: Diltiazem CD CAP* 240 MG PO SCH (08:49)
[2017-04-20] MEDS: Methylphenidate TAB* 10 MG PO SCH (08:49)
[2017-04-20] MEDS: Clopidogrel TAB* 75 MG PO SCH (08:50)
[2017-04-20] MEDS: Atenolol TAB* 50 MG PO SCH (08:50)
[2017-04-20] MEDS: Ascorbic Acid TAB* 500 MG PO SCH (08:50)
[2017-04-20] MEDS: Cholecalciferol TAB* 1000 UNITS PO SCH (08:51)
[2017-04-20] MEDS: Ramipril CAP* 5 MG PO SCH (08:51)
[2017-04-20] MEDS ORDERED: INTERFERON BETA 30 MCG IM SCH (11:00)
[2017-04-20] MEDS: Acetaminophen TAB* 325 MG PO PRN ×2 (12:01→21:12)
--- NOTE | 2017-04-20 14:55 | PN ---
Subjective Date of Service: 04/20/17 Interval History: No new complaints. Not much pain. Good PO intake this morning. Family History: Unchanged from Admission Social History: Unchanged from Admission Past Medical History: Unchanged from Admission Objective Active Medications: Acetaminophen (Tylenol Tab*) 650 mg PO Q6H PRN Amantadine HCl (Symmetrel Liq*) 100 mg PO QAM ANKUR Amantadine HCl (Symmetrel Liq*) 50 mg PO 1200 ANKUR Ascorbic Acid (Vitamin C Tab*) 500 mg PO DAILY ANKUR Atenolol (Tenormin Tab*) 100 mg PO DAILY ANKUR Cholecalciferol (Vitamin D Tab*) 1,000 units PO QAM ANKUR Clopidogrel Bisulfate (Plavix Tab*) 75 mg PO DAILY ANKUR Diltiazem HCl (Cardizem Cd Cap*) 240 mg PO QAM ANKUR Diphenhydramine HCl (Benadryl Po*) 25 mg PO BEDTIME PRN Gabapentin (Neurontin Cap(*)) 600 mg PO BEDTIME ANKUR Heparin Sodium (Porcine) (Heparin Vial(*)) 5,000 units SUBCUT Q8HR ANKUR Ibuprofen (Motrin Tab*) 600 mg PO Q6H PRN Levothyroxine Sodium (Synthroid Tab*) 50 mcg PO 0600 ANKUR Methylphenidate HCl (Ritalin Tab*) 10 mg PO DAILY ANKUR Pto* (Interferon Beta-1a [Avonex Pen] 30 Mcg) 30 mcg IM Gomez@0900 ANKUR Oxycodone HCl (Roxycodone Tab*) 5 mg PO Q4H PRN Polyethylene Glycol/Electrolytes (Miralax*) 17 gm PO DAILY PRN Ramipril (Altace Cap*) 5 mg PO BID [facility] Vital Signs 04/19/17 04/19/17 04/19/17 15:31 19:54 20:01 Temperature 98.3 F Pulse Rate 70 72 Respiratory 14 16 18 Rate Blood Pressure 121/47 141/67 (mmHg) O2 Sat by Pulse 96 94 Oximetry 04/19/17 04/20/17 04/20/17 23:51 00:03 03:46 Temperature 98.5 F 98.1 F Pulse Rate 79 86 Respiratory 12 16 16 Rate Blood Pressure 130/51 141/55 (mmHg) O2 Sat by Pulse 94 93 Oximetry 04/20/17 04/20/17 04/20/17 07:44 08:00 11:48 Temperature 98.0 F 97.9 F Pulse Rate 94 80 Respiratory 18 18 18 Rate Blood Pressure 156/66 123/51 (mmHg) O2 Sat by Pulse 94 95 Oximetry Oxygen Devices in Use Now: None Appearance: Elderly, F, sitting in chair in NAD Eyes: No Scleral Icterus Ears/Nose/Mouth/Throat: Mucous Membranes Moist Neck: NL Appearance and Movements; NL JVP Respiratory: Symmetrical Chest Expansion and Respiratory Effort, Clear to Auscultation Cardiovascular: NL Sounds; No Murmurs; No JVD, RRR Abdominal: NL Sounds; No Tenderness; No Distention Lymphatic: No Cervical Adenopathy Extremities: No Edema, - - LUE in immobilizer Skin: No Rash or Ulcers Neurological: Alert and Oriented x 3 Result Diagrams: 04/18/17 13:45 04/18/17 13:45 Assess/Plan/Problems-Billing Assessment: L shoulder dislocation and L humerus greater tuberosity fx in an 82 yo F with hx of multiple sclerosis, HTN, HLD, PVD - Patient Problems (1) Dislocation of shoulder, left, closed Current Visit: Yes Comment: CT shows L humerus greater tuberosity fx. Dr. Vee notified on admission, recommended immobilization for 3-6 weeks and outpatient follow-up. Analgesia prn. PT eval done, will need CORDELIA. (2) Multiple sclerosis Current Visit: Yes Comment: Continue Amantadine (3) HTN (hypertension) Current Visit: Yes Comment: Continue Atenolol and Ramipril (4) PVD (peripheral vascular disease) Current Visit: Yes Comment: Continue Plavix (5) Hypothyroidism Current Visit: Yes Comment: Continue synthroid (6) DVT prophylaxis Current Visit: Yes Comment: HSQ Status and Disposition: Inpatient, will need placement
[2017-04-20] MEDS: Gabapentin CAP(*) 300 MG PO SCH (21:12)
[2017-04-21] MEDS: Heparin VIAL(*) 5000 UNITS/ML VIAL (FIVE THOUSAND) SUBCUT SCH ×3 (06:22→20:47)
[2017-04-21] MEDS: Levothyroxine TAB* 50 MCG TAB PO SCH (06:25)
[2017-04-21 09:50] LABS: Hematocrit 33 % (35-47); Hemoglobin 11.2 g/dl (12.0-16.0); Mean Corpuscular HGB Conc 34 g/dl (31-36); Mean Corpuscular Hemoglobin 32 pg (27-31); Mean Corpuscular Volume 95 fL (80-97); Mean Platelet Volume 9 um3 (7.4-10.4); Red Blood Count 3.51 10^6/ul (4.0-5.4); Red Cell Distribution Width 14 % (10.5-15); White Blood Count 8.5 10^3/ul (3.5-10.8)
[2017-04-21 10:04] LABS: BUN/Creatinine Ratio 31.3 (8-20); Calcium 8.6 mg/dL (8.6-10.3); EGFR African American 88.8 (>60); Potassium 4.1 mmol/L (3.5-5.0)
[2017-04-21] MEDS: Atenolol TAB* 50 MG PO SCH ×2 (10:04→11:37)
[2017-04-21] MEDS: Methylphenidate TAB* 10 MG PO SCH ×2 (10:04→11:37)
[2017-04-21] MEDS: Cholecalciferol TAB* 1000 UNITS PO SCH ×2 (10:04→11:37)
[2017-04-21] MEDS: Diltiazem CD CAP* 240 MG PO SCH ×2 (10:04→11:37)
[2017-04-21] MEDS: Clopidogrel TAB* 75 MG PO SCH ×2 (10:04→11:43)
[2017-04-21] MEDS: Ascorbic Acid TAB* 500 MG PO SCH ×2 (10:04→11:37)
[2017-04-21] MEDS: Polyethylene Glycol 3350* 17 GM PACKET PO PRN ×2 (10:10→14:51)
[2017-04-21] MEDS: Amantadine LIQ* 50 MG/5 ML UDC PO SCH ×3 (10:13→14:51)
[2017-04-21] MEDS ORDERED: Ondansetron INJ* 2 MG/ML VIAL IV PRN (10:31)
[2017-04-21] MEDS ORDERED: NS 0.9% 1000 ML* 1,000 ML IV SCH (10:45)
--- NOTE | 2017-04-21 13:23 | PN ---
Subjective Date of Service: 04/21/17 Interval History: Patient seen this morning. Had no specific complaints although aides felt she was a bit confused this morning. Some LLE cramping. Later in the AM had an episode of N/V Family History: Unchanged from Admission Social History: Unchanged from Admission Past Medical History: Unchanged from Admission Objective Active Medications: Acetaminophen (Tylenol Tab*) 650 mg PO Q6H PRN Amantadine HCl (Symmetrel Liq*) 100 mg PO QAM ANKUR Amantadine HCl (Symmetrel Liq*) 50 mg PO 1200 ANKUR Ascorbic Acid (Vitamin C Tab*) 500 mg PO DAILY ANKUR Atenolol (Tenormin Tab*) 100 mg PO DAILY ANKUR Cholecalciferol (Vitamin D Tab*) 1,000 units PO QAM ANKUR Clopidogrel Bisulfate (Plavix Tab*) 75 mg PO DAILY ANKUR Diltiazem HCl (Cardizem Cd Cap*) 240 mg PO QAM ANKUR Diphenhydramine HCl (Benadryl Po*) 25 mg PO BEDTIME PRN Gabapentin (Neurontin Cap(*)) 600 mg PO BEDTIME ANKUR Heparin Sodium (Porcine) (Heparin Vial(*)) 5,000 units SUBCUT Q8HR ANKUR Sodium Chloride (Ns 0.9% 1000 Ml*) 1,000 mls @ 75 mls/hr IV PER RATE ANKUR Ibuprofen (Motrin Tab*) 600 mg PO Q6H PRN Levothyroxine Sodium (Synthroid Tab*) 50 mcg PO 0600 ANKUR Methylphenidate HCl (Ritalin Tab*) 10 mg PO DAILY ANKUR Pto* (Interferon Beta-1a [Avonex Pen] 30 Mcg) 30 mcg IM Gomez@0900 ANKUR Ondansetron HCl (Zofran Inj*) 4 mg IV Q4H PRN Oxycodone HCl (Roxycodone Tab*) 5 mg PO Q4H PRN Polyethylene Glycol/Electrolytes (Miralax*) 17 gm PO DAILY PRN Vital Signs 04/20/17 04/20/17 04/20/17 16:04 19:28 20:00 Temperature 97.5 F 97.2 F Pulse Rate 53 74 Respiratory 20 28 16 Rate Blood Pressure 110/42 149/48 (mmHg) O2 Sat by Pulse 98 95 Oximetry 04/20/17 04/20/17 04/20/17 21:12 23:12 23:23 Temperature 98.6 F Pulse Rate 82 Respiratory 18 16 17 Rate Blood Pressure 136/57 (mmHg) O2 Sat by Pulse 93 Oximetry 04/21/17 04/21/17 04/21/17 03:48 07:53 08:00 Temperature 98.3 F 97.9 F Pulse Rate 86 78 Respiratory 17 18 18 Rate Blood Pressure 157/64 145/58 (mmHg) O2 Sat by Pulse 96 96 Oximetry 04/21/17 11:52 Temperature 98.2 F Pulse Rate 90 Respiratory 18 Rate Blood Pressure 122/54 (mmHg) O2 Sat by Pulse 97 Oximetry Oxygen Devices in Use Now: None Appearance: Elderly, F, laying in bed in NAD Eyes: No Scleral Icterus Ears/Nose/Mouth/Throat: - - Dry MM Neck: NL Appearance and Movements; NL JVP Respiratory: Symmetrical Chest Expansion and Respiratory Effort, Clear to Auscultation Cardiovascular: NL Sounds; No Murmurs; No JVD, RRR Abdominal: NL Sounds; No Tenderness; No Distention Lymphatic: No Cervical Adenopathy Extremities: No Edema, - - LUE in immobilizer Neurological: - - Alert, oriented to self, place, some difficulty telling me exactly why she was here, some LLE weakness (baseline) Result Diagrams: 04/21/17 09:32 04/21/17 09:32 Assess/Plan/Problems-Billing Assessment: L shoulder dislocation and L humerus greater tuberosity fx in an 82 yo F with hx of multiple sclerosis, HTN, HLD, PVD - Patient Problems (1) Dislocation of shoulder, left, closed Current Visit: Yes Comment: CT shows L humerus greater tuberosity fx. Dr. Vee notified on admission, recommended immobilization for 3-6 weeks and outpatient follow-up. Analgesia prn. PT eval done, will need CORDELIA. (2) Hyponatremia Current Visit: Yes Comment: Possibly from poor PO intake. Check SOsm, UOsm, Rodolfo. Start IVF. Recheck in AM. (3) Multiple sclerosis Current Visit: Yes Comment: Continue Amantadine (4) HTN (hypertension) Current Visit: Yes Comment: Continue Atenolol, Diltiazem. Holding Ramipril for now. (5) PVD (peripheral vascular disease) Current Visit: Yes Comment: Continue Plavix (6) Hypothyroidism Current Visit: Yes Comment: Continue synthroid (7) DVT prophylaxis Current Visit: Yes Comment: HSQ Status and Disposition: Inpatient, will need placement
[2017-04-21] MEDS: Acetaminophen TAB* 325 MG PO PRN (20:46)
[2017-04-21] MEDS: Gabapentin CAP(*) 300 MG PO SCH (20:46)
[2017-04-22] MEDS ORDERED: Benzonatate CAP* 100 MG PO PRN (05:17)
[2017-04-22] MEDS: Heparin VIAL(*) 5000 UNITS/ML VIAL (FIVE THOUSAND) SUBCUT SCH ×2 (05:29→13:15)
[2017-04-22] MEDS: GuaiFENesin DM* 5 ML UDC PO PRN ×2 (05:29→15:31)
[2017-04-22] MEDS: Levothyroxine TAB* 50 MCG TAB PO SCH (05:31)
[2017-04-22 07:52] LABS: BUN/Creatinine Ratio 33.3 (8-20); Calcium 8.5 mg/dL (8.6-10.3); EGFR African American 91.4 (>60); EGFR Non-African American 71.1 (>60); Potassium 4.4 mmol/L (3.5-5.0)
[2017-04-22] MEDS: Atenolol TAB* 50 MG PO SCH (10:23)
[2017-04-22] MEDS: Amantadine LIQ* 50 MG/5 ML UDC PO SCH ×2 (10:25→13:15)
[2017-04-22] MEDS: Clopidogrel TAB* 75 MG PO SCH (10:26)
[2017-04-22] MEDS: Ascorbic Acid TAB* 500 MG PO SCH (10:27)
[2017-04-22] MEDS: Diltiazem CD CAP* 240 MG PO SCH (10:29)
[2017-04-22] MEDS: Methylphenidate TAB* 10 MG PO SCH (10:30)
[2017-04-22] MEDS: Cholecalciferol TAB* 1000 UNITS PO SCH (10:31)
[2017-04-22] MEDS: Polyethylene Glycol 3350* 17 GM PACKET PO PRN (10:36)
--- NOTE | 2017-04-22 13:47 | DS ---
CC: Dr. Yan/Flor Romero, BANDING MACHINE OPERATOR; Dr. Vee; [facility] * DATE OF ADMISSION: 04/18/2017. DATE OF DISCHARGE: 04/22/2017. DISCHARGE DIAGNOSES: 1. Left mildly comminuted fracture of the greater tuberosity of the left humerus. 2. Hyponatremia, likely secondary to SIADH. 3. Urinary retention, suspect neurogenic bladder secondary to multiple sclerosis. SECONDARY DIAGNOSES: 1. Hyperlipidemia. 2. Hypertension. 3. COPD versus chronic interstitial lung disease. 4. Peripheral vascular disease, status post angiopathy to the left leg. 5. Breast cancer, status post lumpectomy and radiation. 6. History of thyroid nodule. 7. Multiple sclerosis diagnosed in 1970. 9. History of recent near syncopal episodes with echo and Holter monitoring as an outpatient showing some AV block, but the patient declined further work-up. 10. History of restrictive cardiomyopathy. 11. Moderate aortic stenosis. 12. Moderate mitral regurgitation. 13. Mild to moderate tricuspid regurgitation. MEDICATIONS: 1. Cholecalciferol 1000 units p.o. in the morning. 2. Vitamin C 500 mg p.o. daily. 3. Tylenol PM Extra Strength 500/25 mg two tablets p.o. at bedtime. 4. Ramipril 5 mg p.o. b.i.d. 5. MiraLax 17 gm p.o. daily as needed for constipation. 6. Methylphenidate 10 mg p.o. daily. 7. Levothyroxine 50 mcg p.o. q.a.m. 8. Gabapentin 600 mg p.o. at bedtime. 9. Diltiazem XR 240 mg p.o. q.a.m. 10. Clopidogrel 75 mg p.o. daily. 11. Cetirizine 5 mg p.o. daily. 12. Citrucel fiber one tablespoon p.o. in the morning. 13. Interferon Beta-1A 30 mcg intramuscular weekly. 14. Calcium plus vitamin D 600/400 mg [id number] in the morning, one tablet at noon, and one tablet at bedtime. 15. Atenolol 100 mg p.o. daily. 16. Amantadine 100 mg p.o. q.a.m. and 50 mg as needed for weakness. 17. Oxycodone 5 mg p.o. q.4 hours prn severe pain, MDD 6 tablets. 18. Ibuprofen 600 mg p.o. q.6 hours prn pain. 19. Acetaminophen 650 mg p.o. q.6 hours prn pain. HOSPITAL COURSE: Ms. Damian is an 82-year-old lady with a past medical history as stated above who presented to the emergency room on April 18 with complaints of a fall at home with left shoulder pain. Preceding her admission, the patient had some complaints of weakness, cough and was felt to have probably a mild viral illness. On the date of admission, she got up to go to the bathroom and fell in the bathroom, likely a mechanical fall and developed severe pain in her left shoulder. The patient did have an episode of near syncope recently, but she was seen by Dr. George as an outpatient, had a work-up that included an echocardiogram and Holter. As per HPI, the Holter showed some AV block, but the patient declined further work-up with implantable monitor as at that time she felt she was doing better. This episode was clearly described as a purely mechanical fall. For more details about her presentation, I refer you to her history and physical. In the emergency room, the patient had a humerus x-ray that showed a left shoulder dislocation with probably fracture of the greater tuberosity. Shoulder x-ray after reduction showed interval reduction of the left shoulder dislocation and the patient was admitted for pain management as she was felt not to be able to be managed at home. An upper extremity CT was performed and showed a mildly comminuted fracture of the greater tuberosity of the left humerus without significant displacement. The case was discussed with the orthopedist forming yardage control operator (Dr. Vee) and his recommendation was for left upper extremity in a sling and nonweightbearing or three to six weeks. The patient ambulated at home with walker and with this new limitation, she would not be able to manage at home. The plan is for discharge to [facility] for rehabilitation process. I did discuss the case with Dr. Vee today, on the date of discharge, and the recommendation is still the same as nonweightbearing for three to six weeks and to follow-up with him in ten days. He feels that her left upper extremity should be kept in a sling, but this sling could be removed for gentle range of motion exercises with PT and OT. The patient was noted to be hyponatremic on admission with a sodium of 130. She has had mild hyponatremia since at least 2010. Her serum osmolality was 268 , but at the time of this dictation, her urine osmolality is still pending. I suspect the patient likely has SIADH. With IV hydration, her sodium actually went down to 125. She is on a fluid restriction now and she will have another BMP checked on April 24 to make sure her sodium is trending up. Also, urine osmolality needs to be followed. A chest x-ray showed hyperinflation suggestive of COPD and pulmonary vascular congestion, but no other acute lesions. The patient was also found to have urinary retention. She is able to void, but was noted to have 438 ml of urine in the bladder. She was straight cathed with 680 ml of urine drained. A UA is pending at the time of this dictation and should be followed as an outpatient. I suspect the patient likely has neurogenic bladder due to her MS and has probably has elevated residuals for awhile, although she is not aware. The plan is to bladder scan her three times a day and to straight cath her if her residual is greater than 200 ml. If this is a persistent finding, she will require urological evaluation as an outpatient. The patient is medically stable for discharge at this time. PHYSICAL EXAMINATION: General: The patient is a pleasant, elderly lady lying in bed in no acute distress. Vital Signs: Temperature 98.0, heart rate 75, respiratory rate 17, oxygen saturation 93 percent on room air, blood pressure 147/57. CVS: Normal S1, S2. Regular rate and rhythm. Chest: Breath sounds present bilaterally with no added sounds. Abdomen: Obese, soft, bowel sounds are present. Extremities: Left upper extremity is in a sling. The patient has good pulses, good capillary refill. Sensation is intact on her left upper extremity, including her hand. Neuro: She is alert and oriented times three, able to move all four extremities. DIET: Regular diet with fluid restriction of 1.5 liters a day. ACTIVITY: Nonweightbearing to the left upper extremity. The extremity should be in a sling, but can be removed for gentle range of motion exercises with physical therapy and occupational therapy. DISPOSITION: To [facility] for rehab. STATUS WHILE IN THE HOSPITAL: Inpatient. Please keep in mind this is a summarized version of this patient's hospital stay. If you need more information, please feel free to call me at or please obtain the full medical records. Please note that at the time of this dictation, urine osmolality and urinalysis are pending and the results should be followed as an outpatient. The patient should have a BMP on April 24 to see if her sodium continues to trend up. If not, she may need lower fluid restriction, maybe to one liter a day. Approximately 45 minutes were spent to complete this discharge. [id number]/[facility] #: [id number] WILLIAN
[2017-04-22 14:59] VITALS: BP 149/65
[2017-04-22 15:11] LABS: Urine Bilirubin Negative (Negative); Urine Glucose Negative (Negative); Urine Nitrite Negative (Negative)
== END 2017-04-22 16:50 | DRG 563 ==
LOC: ED 06:06 → MED 13:30 → OBSVTOIN 04-19 12:12
PROVIDERS: ADMIT Internal Medicine; ATTEND Internal Medicine
PROC: 0RSKXZZ Reposition Left Shoulder Joint, External Approach (ICD-10-PCS; principal; 2017-04-18)
DX: S42.255A Nondisplaced fracture of greater tuberosity of left humerus, initial encounter for closed fracture (principal); G35 Multiple sclerosis; I42.5 Other restrictive cardiomyopathy; E22.2 Syndrome of inappropriate secretion of antidiuretic hormone; W18.30XA Fall on same level, unspecified, initial encounter; Y92.009 Unspecified place in unspecified non-institutional (private) residence as the place of occurrence of the external cause; N31.9 Neuromuscular dysfunction of bladder, unspecified; R33.9 Retention of urine, unspecified; E78.5 Hyperlipidemia, unspecified; J44.9 Chronic obstructive pulmonary disease, unspecified; I73.9 Peripheral vascular disease, unspecified; I35.0 Nonrheumatic aortic (valve) stenosis; I34.0 Nonrheumatic mitral (valve) insufficiency; Z85.3 Personal history of malignant neoplasm of breast; Z79.1 Long term (current) use of non-steroidal anti-inflammatories (NSAID); Z79.899 Other long term (current) drug therapy; Z88.2 Allergy status to sulfonamides; Z82.49 Family history of ischemic heart disease and other diseases of the circulatory system
CPT/HCPCS: 36415; 71010; 80048; 81003; 83735; 83930; 83935; 84300; 85025; 85027; 93005; A9270-GY; G0378; G8978-GP-CL; G8979-GP-CK; J1644; J2250; J2270; J2405; J3010

== ENCOUNTER 2017-04-30 14:23 | Inpatient (IN) | payer MEDICARE, BC ==
[2017-04-30] MEDS ORDERED: NS 0.9% 1000 ML* 1,000 ML IV SCH ×2 (15:00→21:15)
--- NOTE | 2017-04-30 15:20 | RAD ---
HISTORY: Weakness COMPARISONS: April 18, 2017 VIEWS:1: Single frontal portable view of the chest at 3:08 PM FINDINGS: LINES AND TUBES: None. CARDIOMEDIASTINAL SILHOUETTE: The cardiomediastinal silhouette is stable. PLEURA: There is blunting of the costophrenic angles consistent with small bilateral pleural effusions. LUNG PARENCHYMA: There is a diffuse reticular pattern with indistinct pulmonary vessels. There is confluent alveolar opacification of the left lung base. ABDOMEN: The upper abdomen is clear. There is no subphrenic gas. BONES AND SOFT TISSUES: Degenerative changes are noted. Surgical clips are noted in the right axilla. IMPRESSION: 1. PULMONARY INTERSTITIAL EDEMA. 2. SMALL BILATERAL PLEURAL EFFUSIONS. 3. LEFT BASILAR ATELECTASIS VERSUS CONSOLIDATION.
[2017-04-30 15:35] LABS: Hematocrit 32 % (35-47); Hemoglobin 10.9 g/dl (12.0-16.0); Mean Corpuscular HGB Conc 34 g/dl (31-36); Mean Corpuscular Hemoglobin 31 pg (27-31); Mean Corpuscular Volume 92 fL (80-97); Mean Platelet Volume 8 um3 (7.4-10.4); Red Blood Count 3.47 10^6/ul (4.0-5.4); Red Cell Distribution Width 14 % (10.5-15); White Blood Count 8.3 10^3/ul (3.5-10.8)
[2017-04-30 15:50] LABS: ALT 15 U/L (7-52); Albumin 2.9 g/dL (3.2-5.2); Alkaline Phosphatase 86 U/L (34-104); BUN/Creatinine Ratio 31.6 (8-20); Blood Urea Nitrogen 18 mg/dL (6-24); C Reactive Protein 97.39 mg/L (< 5.00); CO2 Carbon Dioxide 23 mmol/L (22-32); Calcium 8.6 mg/dL (8.6-10.3); Chloride 82 mmol/L (101-111); Creatine Kinase 152 U/L (10-223); EGFR African American 131.2 (>60); EGFR Non-African American 102.1 (>60); Globulin 3.8 g/dL (2-4); Glucose 141 mg/dL (70-100); Lipase 39 U/L (11.0-82.0); Magnesium 1.7 mg/dL (1.9-2.7); Total Protein 6.7 g/dL (6.4-8.9)
[2017-04-30 16:04] LABS: Anion Gap 7 mmol/L (2-11); Sodium 112 mmol/L (133-145); Troponin I 0.05 ng/mL (<0.04)
[2017-04-30 16:11] LABS: TSH (Thyroid Stimulating Horm) 1.07 mcIU/mL (0.34-5.60)
[2017-04-30] MEDS ORDERED: Albuterol 2.5 MG/3 ML NEB.SOL* (0.083%) INH PRN (16:34)
[2017-04-30] MEDS ORDERED: Ondansetron ODT TAB* 4 MG PO PRN (16:34)
[2017-04-30] MEDS ORDERED: Sodium Chloride 3% HYPERTONIC* 500 ML IVPB ONE (16:35)
[2017-04-30] MEDS ORDERED: Amantadine CAP* 100 MG PO SCH (17:00)
--- NOTE | 2017-04-30 17:28 | ED ---
Flavio Lopez Benjamin, scribed for Aguila Adan MD on 04/30/17 at 1626 . Complex/Multi-Sys Presentation - HPI Summary HPI Summary: 82yo female TONG from [facility]. Pt was dxed with PNA 1 week ago and pt hasn t been recovering well from her PNA. Pt has been getting weaker, appeared totally wiped out and little confused, so [facility] checked her blood and blood work showed low Na+. Pt is then brought in for evaluation. Hx of MS. Current broken L clavicle. - History Of Current Complaint Chief Complaint: EDGeneral Time Seen by Provider: 04/30/17 15:49 Hx Obtained From: Patient, Family/Order Clerk Onset/Duration: Lasting Days, Still Present Timing: Constant Severity Currently: Mild Severity Initially: Mild Location: Negative Associated Signs And Symptoms: Positive: Decreased Responsiveness, Confusion, Weakness - Allergies/Home Medications Allergies/Adverse Reactions: Allergies Allergy/AdvReac Type Severity Reaction Status Date / Time Sulfa Drugs Allergy Unknown Unknown Verified 01/11/14 15:14 Reaction Details Home Medications: Home Medications Acetaminophen [Acetaminophen Extra Stren] 1,000 mg PO BID PRN 04/30/17 [History Confirmed 04/30/17] Albuterol 2.5MG/3ML (0.083%)* [Ventolin 2.5 MG/3 ML NEB.ALESIA*] 2.5 mg INH Q6H PRN 04/30/17 [History Confirmed 04/30/17] Amantadine CAP* [Symmetrel CAP*] 50 mg PO .IN THE AFTERNOON 04/30/17 [History Confirmed 04/30/17] Amantadine CAP* [Symmetrel CAP*] 100 mg PO QAM 04/30/17 [History Confirmed 04/30] Ascorbic Acid TAB* [Vitamin C TAB*] 500 mg PO DAILY 04/30/17 [History Confirmed 04/30/17] Calcium Carbonate-Vitamin D [Calcium 600 + D] 1 tab PO BID 04/30/17 [History Confirmed 04/30/17] Clopidogrel TAB* [Plavix TAB*] 75 mg PO DAILY 04/30/17 [History Confirmed ] Diltiazem CD CAP* [Cardizem CD CAP*] 240 mg PO DAILY 04/30/17 [History Confirmed 04/30/17] Diphenhydramine-Acetaminophen [Tylenol Pm Extra Strength 500-25 mg] 2 tab PO BEDTIME 04/30/17 [History Confirmed 04/30/17] Furosemide TAB* [Lasix TAB*] 20 mg PO DAILY 04/30/17 [History Confirmed 04/30/17 ] GuaiFENesin DM* [Robitussin DM*] 10 ml PO Q4H PRN 04/30/17 [History Confirmed ] Ibuprofen TAB* [Motrin TAB* 600 MG] 600 mg PO Q6H PRN 04/30/17 [History Confirmed 04/30/17] Interferon Beta-1A [Avonex Pen] 30 mcg IM LAMB 04/30/17 [History Confirmed ] Levofloxacin TAB* [Levaquin TAB*] 500 mg PO DAILY 04/30/17 [History Confirmed ] Methylphenidate HCl [Aptensio Xr] 10 mg PO DAILY 04/30/17 [History Confirmed ] Ondansetron ODT TAB* [Zofran 4 MG Odt TAB*] 4 mg PO Q8H PRN 04/30/17 [History Confirmed 04/30/17] Polyethylene Glycol 3350* [Miralax*] 17 gm PO BEDTIME 04/30/17 [History Confirmed 04/30/17] Ramipril CAP* [Altace CAP*] 5 mg PO DAILY 04/30/17 [History Confirmed 04/30/17] oxyCODONE TAB* [Roxycodone TAB 5 mg*] 5 mg PO Q4H PRN 04/30/17 [History Confirmed 04/30/17] PMH/Surg Hx/FS Hx/Imm Hx Endocrine/Hematology History: Denies: Hx Diabetes Cardiovascular History: Reports: Hx Hypertension, Hx Valvular Heart Disease Denies: Hx Congestive Heart Failure - possible Respiratory History: Reports: Hx Chronic Obstructive Pulmonary Disease (COPD), Other Respiratory Problems/Disorders - fluid in lungs Denies: Hx Asthma History: Reports: Other Problems/Disorders - uti recently Musculoskeletal History: Reports: Other Musculoskeletal History - MS Sensory History: Reports: Hx Contacts or Glasses Denies: Hx Hearing Aid Opthamlomology History: Reports: Hx Contacts or Glasses Neurological History: Reports: Other Neuro Impairments/Disorders - ms dx 1999 - Cancer History Cancer Type, Location and Year: breast ca right Hx Chemotherapy: No Hx Radiation Therapy: Yes - BREAST - Surgical History Surgery Procedure, Year, and Place: lumpectomy right 2004 with radiation, thyroidectomy, [place] 2003, tonsilectomy - Immunization History Date of Tetanus Vaccine: Up to date Date of Influenza Vaccine: Fall 2012 Infectious Disease History: No Infectious Disease History: Denies: Traveled Outside the [place] in Last 30 Days - Family History Known Family History: Positive: Hypertension - Mother, Other - MS - Social History Occupation: Retired Lives: [facility] Alcohol Use: None Hx Substance Use: No Substance Use Type: Reports: None Smoking Status (MU): Never Smoked Tobacco Review of Systems Constitutional: Negative Eyes: Negative ENT: Negative Cardiovascular: Negative Respiratory: Negative Gastrointestinal: Negative Genitourinary: Negative Musculoskeletal: Negative Skin: Negative Neurological: Other - confused Positive: Weakness Psychological: Normal All Other Systems Reviewed And Are Negative: Yes Physical Exam Triage Information Reviewed: Yes Vital Signs On Initial Exam: Initial Vitals Temp Pulse Resp BP Pulse Ox 97 F 62 20 139/63 95 04/30/17 14:24 04/30/17 14:24 04/30/17 14:24 04/30/17 14:24 04/30/17 14:24 Vital Signs Reviewed: Yes Appearance: Positive: No Pain Distress, Well-Nourished, Ill-Appearing - moderately Skin: Positive: Warm, Skin Color Reflects Adequate Perfusion, Dry Head/Face: Positive: Normal Head/Face Inspection Eyes: Positive: Normal ENT: Positive: Normal ENT inspection Neck: Positive: Supple, Nontender Respiratory/Lung Sounds: Positive: Clear to Auscultation, Breath Sounds Present Cardiovascular: Positive: RRR, Pulses are Symmetrical in both Upper and Lower Extremities Abdomen Description: Positive: Nontender, Soft Bowel Sounds: Positive: Present Musculoskeletal: Negative: Strength/ROM Intact - generalized weakness Neurological: Positive: Sensory/Motor Intact - generalized weakness, Alert, Oriented to Person Place, Time. Negative: Focal Deficit @ Psychiatric: Positive: Affect/Mood Appropriate - Alexy Coma Scale Coma Scale Total: 15 Diagnostics - Vital Signs Vital Signs Temp Pulse Resp BP Pulse Ox 04/30/17 16:16 97 F 56 18 137/64 04/30/17 16:00 55 19 137/64 96 04/30/17 15:30 57 18 136/56 96 04/30/17 15:00 55 19 128/60 96 04/30/17 14:45 56 19 95 04/30/17 14:24 97 F 62 20 139/63 95 - Laboratory Lab Results: Lab Results 04/30/17 04/30/17 04/30/17 Range/Units 15:27 15:27 15:27 WBC 8.3 (3.5-10.8) 10^3/ul RBC 3.47 L (4.0-5.4) 10^6/ul Hgb 10.9 L (12.0-16.0) g/dl Hct 32 L (35-47) % MCV 92 (80-97) fL MCH 31 (27-31) pg MCHC 34 (31-36) g/dl RDW 14 (10.5-15) % Plt Count 350 (150-450) 10^3/ul MPV 8 (7.4-10.4) um3 Neut % (Auto) 79.0 (38-83) % Lymph % (Auto) 9.2 L (25-47) % [place] % (Auto) 8.4 (1-9) % Eos % (Auto) 3.3 (0-6) % Baso % (Auto) 0.1 (0-2) % Absolute Neuts (auto) 6.5 (1.5-7.7) 10^3/ul Absolute Lymphs (auto) 0.8 L (1.0-4.8) 10^3/ul Absolute Monos (auto) 0.7 (0-0.8) 10^3/ul Absolute Eos (auto) 0.3 (0-0.6) 10^3/ul Absolute Basos (auto) 0 (0-0.2) 10^3/ul Absolute Nucleated RBC 0 10^3/ul Nucleated RBC % 0 INR (Anticoag Therapy) 0.99 (0.89-1.11) APTT 30.0 (26.0-36.3) seconds Sodium 112 L* (133-145) mmol/L Potassium TNP Chloride 82 L (101-111) mmol/L Carbon Dioxide 23 (22-32) mmol/L Anion Gap 7 (2-11) mmol/L BUN 18 (6-24) mg/dL Creatinine 0.57 (0.51-0.95) mg/dL Est GFR ( Amer) 131.2 (>60) Est GFR (Non-Af Amer) 102.1 (>60) BUN/Creatinine Ratio 31.6 H (8-20) Glucose 141 H (70-100) mg/dL Lactic Acid (0.5-2.0) mmol/L Calcium 8.6 (8.6-10.3) mg/dL Magnesium 1.7 L (1.9-2.7) mg/dL Total Bilirubin 0.40 (0.2-1.0) mg/dL AST TNP ALT 15 (7-52) U/L Alkaline Phosphatase 86 (34-104) U/L Total Creatine Kinase 152 (10-223) U/L CK-MB (CK-2) 6.9 H (0.6-6.3) ng/mL Troponin I 0.05 H* (<0.04) ng/mL C-Reactive Protein 97.39 H (< 5.00) mg/L B-Natriuretic Peptide ( - 100) pg/mL Total Protein 6.7 (6.4-8.9) g/dL Albumin 2.9 L (3.2-5.2) g/dL Globulin 3.8 (2-4) g/dL Albumin/Globulin Ratio 0.8 L (1-3) Lipase 39 (11.0-82.0) U/L TSH 1.07 (0.34-5.60) mcIU/mL 04/30/17 04/30/17 Range/Units 15:27 15:27 WBC (3.5-10.8) 10^3/ul RBC (4.0-5.4) 10^6/ul Hgb (12.0-16.0) g/dl Hct (35-47) % MCV (80-97) fL MCH (27-31) pg MCHC (31-36) g/dl RDW (10.5-15) % Plt Count (150-450) 10^3/ul MPV (7.4-10.4) um3 Neut % (Auto) (38-83) % Lymph % (Auto) (25-47) % [place] % (Auto) (1-9) % Eos % (Auto) (0-6) % Baso % (Auto) (0-2) % Absolute Neuts (auto) (1.5-7.7) 10^3/ul Absolute Lymphs (auto) (1.0-4.8) 10^3/ul Absolute Monos (auto) (0-0.8) 10^3/ul Absolute Eos (auto) (0-0.6) 10^3/ul Absolute Basos (auto) (0-0.2) 10^3/ul Absolute Nucleated RBC 10^3/ul Nucleated RBC % INR (Anticoag Therapy) (0.89-1.11) APTT (26.0-36.3) seconds Sodium (133-145) mmol/L Potassium Chloride (101-111) mmol/L Carbon Dioxide (22-32) mmol/L Anion Gap (2-11) mmol/L BUN (6-24) mg/dL Creatinine (0.51-0.95) mg/dL Est GFR ( Amer) (>60) Est GFR (Non-Af Amer) (>60) BUN/Creatinine Ratio (8-20) Glucose (70-100) mg/dL Lactic Acid 1.4 (0.5-2.0) mmol/L Calcium (8.6-10.3) mg/dL Magnesium (1.9-2.7) mg/dL Total Bilirubin (0.2-1.0) mg/dL AST ALT (7-52) U/L Alkaline Phosphatase (34-104) U/L Total Creatine Kinase (10-223) U/L CK-MB (CK-2) (0.6-6.3) ng/mL Troponin I (<0.04) ng/mL C-Reactive Protein (< 5.00) mg/L B-Natriuretic Peptide 366 H ( - 100) pg/mL Total Protein (6.4-8.9) g/dL Albumin (3.2-5.2) g/dL Globulin (2-4) g/dL Albumin/Globulin Ratio (1-3) Lipase (11.0-82.0) U/L TSH (0.34-5.60) mcIU/mL Result Diagrams: 04/30/17 15:27 04/30/17 15:27 Lab Statement: Any lab studies that have been ordered have been reviewed, and results considered in the medical decision making process. - Radiology CXR Xray Interpretation: Positive (See Comments) - IMPRESSION: 1. PULMONARY INTERSTITIAL EDEMA. 2. SMALL BILATERAL PLEURAL EFFUSIONS. 3. LEFT BASILAR ATELECTASIS VERSUS CONSOLIDATION. Radiology Interpretation Completed By: Radiologist - ED physician has reviewed this radiology report and agrees. - EKG 1500 Cardiac Rate: NL - 54bpm EKG Rhythm: Atrial Fibrillation Ectopy: : PVCs EKG Interpretation: Inverted T waves in V1 and V2. Complex Multi-Symp Course/Dx Course Of Treatment: Reviewed pts medication and allergy lists. Blood pressure noted. ADMIT HOSPITALIST GUARDED. CRITICAL CARE TIME LESS THAN 30 MINUTES. - Diagnoses Provider Diagnoses: Hyponatremia, Weakness, Elevated troponin Discharge - Discharge Plan Condition: Guarded Disposition: ADMITTED TO [facility] The documentation as recorded by the Flavio lara Benjamin accurately reflects the service I personally performed and the decisions made by me, Aguila Adan MD.
[2017-04-30] MEDS ORDERED: Magnesium Sulfate 2 GM IV* 2 GM/50 ML BAG IVPB ONE (20:00)
[2017-04-30 20:37] LABS: BUN/Creatinine Ratio 30.2 (8-20); Calcium 8.8 mg/dL (8.6-10.3); EGFR African American 116.9 (>60); EGFR Non-African American 90.9 (>60); Potassium 4.6 mmol/L (3.5-5.0)
[2017-04-30 20:41] LABS: Troponin I 0.04 ng/mL (<0.04)
[2017-04-30 22:16] LABS: Urine Bacteria Absent (Absent); Urine Bilirubin Negative (Negative); Urine Glucose Negative (Negative); Urine Nitrite Negative (Negative)
[2017-04-30] MEDS: Polyethylene Glycol 3350* 17 GM PACKET PO SCH (22:32)
[2017-04-30] MEDS: Heparin VIAL(*) 5000 UNITS/ML VIAL (FIVE THOUSAND) SUBCUT SCH (22:32)
[2017-04-30] MEDS: Acetaminophen TAB* 325 MG PO PRN (22:33)
[2017-04-30] MEDS: GuaiFENesin DM* 5 ML UDC PO PRN (22:33)
--- NOTE | 2017-04-30 23:31 | HP ---
CC: Dr. Yan/Flor Romero NP; Dr. Berger; Augusta Cowart NP * HISTORY AND PHYSICAL: DATE OF ADMISSION: 04/30/17 TIME OF EVALUATION: 4 p.m. PRIMARY CARE PROVIDERS: Dr. Yan/Flor Romero NP CHIEF COMPLAINT: "She is confused" as per vest finisher. HISTORY OF PRESENT ILLNESS: Mrs. Damian is an 82-year-old female with a past medical history of hyperlipidemia, hypertension, COPD versus chronic interstitial lung disease, peripheral vascular disease, status post angioplasty of the left leg, breast cancer, status post lumpectomy and radiation, history of thyroid nodule, multiple sclerosis, near syncope, restrictive cardiomyopathy , moderate aortic stenosis, moderate mitral regurgitation, recent admission for left mildly comminuted fracture of the greater tuberosity of the left humerus, hyponatremia secondary to SIADH and urinary retention secondary to neurogenic bladder who presents to the emergency room with complaint of feeling tired. The history is obtained from her vest finisher at bedside, but I also obtained collateral information from Dr. Berger. The patient was discharged from [facility] on 04/22/17. She had a routine chest x-ray done at [facility] that was read as possible pneumonia. The patient was started empirically on levofloxacin. The vest finisher said that the patient had progressive decline in her condition with poor oral intake, became more lethargic. Yesterday, she was seen by Dr. Berger and the patient was found to have urinary retention. A Jordan catheter was placed with drainage of [address] Berger also felt that the patient could have some congestive heart failure , so she received furosemide. Today, she has a routine blood test to follow her sodium and it was 113, so for that reason, she was sent to the emergency room for further evaluation. The patient denies any complaints at this time. She states that she only feels tired but compared to her prior admission, she is very lethargic at this time. PAST MEDICAL HISTORY: 1. Recent admission for a left mildly comminuted fracture of the greater tuberosity of the left humerus. 2. Chronic hyponatremia, likely secondary to SIADH. 3. Urinary retention, likely secondary to neurogenic bladder associated to multiple sclerosis. 4. Hyperlipidemia. 5. Hypertension. 6. COPD versus chronic interstitial lung disease. 7. Peripheral vascular disease, status post angioplasty to the left leg. 8. Breast cancer, status post lumpectomy and radiation. 9. History of thyroid nodule. 10. Multiple sclerosis diagnosed in 1970. 11. History of near syncopal episode with echo and Holter monitoring as an outpatient showing some A-V block, but the patient declined further workup. 12. History of restrictive cardiomyopathy. 13. Moderate aortic stenosis. 14. Moderate mitral regurgitation. 15. Mild to moderate tricuspid regurgitation. MEDICATION LIST: 1. Acetaminophen 1000 mg p.o. b.i.d. as needed for pain. 2. Acetaminophen 650 mg p.o. q.6 hours p.r.n. pain. 3. Albuterol 2.5 mg inhaled q.6 hours p.r.n. shortness of breath. 4. Amantadine 100 mg p.o. q.a.m. and 50 mg p.o. in the afternoon. 5. Ascorbic acid 500 mg p.o. daily. 6. Atenolol 100 mg p.o. daily. 7. Calcium carbonate plus vitamin D 1 tablet p.o. b.i.d. 8. Cetirizine 5 mg p.o. daily as needed for allergies. 9. Cholecalciferol 1000 units p.o. q.a.m. 10. Clopidogrel 75 mg p.o. daily. 11. Diltiazem CD 240 mg p.o. daily. 12. Tylenol PM 2 tabs p.o. at bedtime. 13. Furosemide 20 mg p.o. daily. 14. Guaifenesin 10 mL p.o. q.4 hours p.r.n. cough. 15. Ibuprofen 600 mg p.o. q.6 hours p.r.n. pain. 16. Interferon beta-1a 30 mcg intramuscular on Sundays. 17. Levofloxacin 500 mg p.o. daily. 18. Citrucel fiber 1 tablespoon p.o. q.a.m. 19. Methylphenidate 10 mg p.o. daily. 20. Ondansetron ODT 4 mg p.o. q.8 hours p.r.n. nausea. 21. Oxycodone 5 mg p.o. q.4 hours p.r.n. severe pain. 22. MiraLAX 17 g p.o. at bedtime. 23. Ramipril 5 mg p.o. daily. ALLERGIES: With SULFA, the patient had unknown reaction. FAMILY HISTORY: Mother at age 93 of old age. Father of an SD at 72. SOCIAL HISTORY: No prior history of alcohol, tobacco, drug use. The patient used to live by herself and had aide services, but now she is at [facility] for rehabilitation. Surrogate decision maker is her sister, Marilynn Stock, phone number is [phone]. REVIEW OF SYSTEMS: Unable to obtain from the patient at this time due to her lethargy. PHYSICAL EXAMINATION GENERAL: The patient is an elderly lady, lying in the ER stretcher in no acute distress, lethargic. VITAL SIGNS: Temperature 97.0, heart rate 66, respiratory rate is 18, oxygen saturation is 96% on room air, blood pressure is 137/64. HEENT: Pupils are equal. Moist mucous membranes. CHEST: Breath sounds present bilaterally with no added sounds. CVS: Normal S1, S2. Regular rate and rhythm. ABDOMEN: Soft. Bowel sounds are present. EXTREMITIES: No edema. Left upper extremity is on a sling. NEURO: She is lethargic, arousable to voice, oriented to self and place. She is able to move all 4 extremities. LABORATORY AND IMAGING DATA: The patient had a CBC that showed WBC of 8.3, hemoglobin of 10.9, hematocrit of 32, platelets of 350,000 and 79% neutrophils. INR is 0.9. Chemistry showed a sodium of 112, potassium is not performed, chloride of 82, bicarb of 23, BUN of 18, creatinine of 0.57, and glucose of 141. Lactic acid of 1.4. Calcium of 8.6. Magnesium of 1.7. LFTs are normal. First troponin is 0.05. BNP is 366. No urine was sent yet at this point. Chest x-ray showed pulmonary interstitial edema, small bilateral pleural effusions, left basilar atelectasis versus consolidation. EKG done on 04/30/17 at 3 p.m. shows sinus arrhythmia with heart rate of [address]-T changes. She was in sinus bradycardia on her prior EKG from 04/18/17. ASSESSMENT AND PLAN: Mrs. Damian is an 82-year-old lady with past medical history of recent humeral fracture, hyponatremia secondary to syndrome of inappropriate antidiuretic hormone, urinary retention secondary to neurogenic bladder/multiple sclerosis, hyperlipidemia, hypertension, chronic obstructive pulmonary disease versus chronic interstitial lung disease, peripheral vascular disease, breast cancer, multiple sclerosis, who presents to the emergency room with lethargy, found to have severe hyponatremia. 1. Severe hyponatremia. The patient is hyponatremic at baseline secondary to syndrome of inappropriate antidiuretic hormone secretion. On her prior admission, she had a sodium of 125 with serum osmolality of 268 and a very high urine osmolality of 828. The patient was discharged to [facility] on fluid restriction, but she was then diagnosed with pneumonia, so I suspect pulmonary process made her syndrome of inappropriate antidiuretic hormone secretion worse. On top of that, the patient also received furosemide for possible fluid overload, so I believe the combination of these factors justify her sodium of 112 at this time. She is going to be admitted to the intensive care unit and as she is symptomatic , she is going to be started on hypertonic saline infusion at 20 mL an hour for 3 hours and then we are going to repeat her sodium and adjust her dose from there. After she reaches 120, I will probably change her to the demeclocycline salt tablets and continue her fluid restriction. The patient will be monitored with neurological checks until we get her sodium to a safer level. 2. Possible pneumonia. The patient has received more than a week of levofloxacin already, so I believe at this point, she does not require further antibiotic therapy. 3. Urinary retention. The patient had a Jordan catheter placed at [facility] yesterday and we are going to send a urinalysis and repeat her urine osmolality and urine sodium. 4. Hypertension. It is controlled. We will continue her atenolol and ramipril. 5. Multiple sclerosis. Appears to be stable. We will continue amantadine. 6. Peripheral vascular disease. We will continue clopidogrel. 7. Hypomagnesemia. We will replete. 8. DVT prophylaxis. The patient has a score of 5 on the DVT Prophylaxis Risk Assessment Guide and she will be started on subcutaneous heparin and SCDs. TIME SPENT: Approximately 65 minutes of critical care time was spent to complete the admission. [id number]/[facility] #: [id number] MTDD
[2017-05-01 00:56] LABS: Calcium 8.4 mg/dL (8.6-10.3); EGFR African American 142.7 (>60); Potassium 4.6 mmol/L (3.5-5.0)
[2017-05-01 01:00] LABS: Troponin I 0.04 ng/mL (<0.04)
[2017-05-01] MEDS ORDERED: Furosemide IV* 10 MG/ML 2 ML VIAL (20 MG) IV ONE ×2 (01:07→20:30)
[2017-05-01] MEDS ORDERED: Furosemide IV* 10 MG/ML 2 ML VIAL (20 MG) ONE (01:11)
[2017-05-01] MEDS: Heparin VIAL(*) 5000 UNITS/ML VIAL (FIVE THOUSAND) SUBCUT SCH ×3 (04:25→21:56)
[2017-05-01] MEDS: Acetaminophen TAB* 325 MG PO PRN (04:26)
[2017-05-01 08:32] LABS: Hematocrit 22 % (35-47); Hemoglobin 7.5 g/dl (12.0-16.0); Mean Corpuscular HGB Conc 34 g/dl (31-36); Mean Corpuscular Hemoglobin 32 pg (27-31); Mean Corpuscular Volume 93 fL (80-97); Mean Platelet Volume 8 um3 (7.4-10.4); Red Blood Count 2.37 10^6/ul (4.0-5.4); Red Cell Distribution Width 15 % (10.5-15); White Blood Count 9.9 10^3/ul (3.5-10.8)
[2017-05-01 08:42] LABS: BUN/Creatinine Ratio 35.3 (8-20); EGFR African American 238.3 (>60); EGFR Non-African American 185.3 (>60)
[2017-05-01 08:46] LABS: Calcium 5.3 mg/dL (8.6-10.3); Potassium 2.7 mmol/L (3.5-5.0)
[2017-05-01] MEDS ORDERED: Amantadine CAP* 100 MG PO SCH (09:00)
--- NOTE | 2017-05-01 09:13 | PN ---
Subjective Date of Service: 05/01/17 Interval History: HOSPITALIST PROGRESS NOTE Patient seen and examined at bedside. She still feels tired today, but not as lethargic as last night. Pain is controlled, offers no other complaints. Family History: Unchanged from Admission Social History: Unchanged from Admission Past Medical History: Unchanged from Admission Objective Active Medications: Acetaminophen (Tylenol Tab*) 650 mg PO Q6H PRN PRN Reason: PAIN Last Admin: 05/01/17 04:26 Dose: 650 mg Albuterol (Ventolin 2.5 Mg/3 Ml Neb.Adeline*) 2.5 mg INH Q6H PRN PRN Reason: SHORTNESS OF BREATH Amantadine HCl (Symmetrel Cap*) 100 mg PO QAM [facility] Amantadine HCl (Symmetrel Cap*) 50 mg PO 1400 [facility] Ascorbic Acid (Vitamin C Tab*) 500 mg PO DAILY [facility] Atenolol (Tenormin Tab*) 100 mg PO DAILY [facility] Cholecalciferol (Vitamin D Tab*) 1,000 units PO QAM [facility] Clopidogrel Bisulfate (Plavix Tab*) 75 mg PO DAILY [facility] Diltiazem HCl (Cardizem Cd Cap*) 240 mg PO DAILY [facility] Guaifenesin/Dextromethorphan (Robitussin Dm*) 10 ml PO Q4H PRN PRN Reason: COUGH Last Admin: 04/30/17 22:33 Dose: 10 ml Heparin Sodium (Porcine) (Heparin Vial(*)) 5,000 units SUBCUT Q8HR [facility] Last Admin: 05/01/17 04:25 Dose: 5,000 units Potassium Chloride (Potassium Chloride 10 Meq/50 Ml Ivpremix*) 10 meq in 50 mls @ 50 mls/hr IV Q1H [facility] Stop: 05/01/17 12:59 Ondansetron HCl (Zofran Odt Tab*) 4 mg PO Q8H PRN PRN Reason: NAUSEA Oxycodone HCl (Roxycodone Tab*) 5 mg PO Q4H PRN PRN Reason: SEVERE PAIN Polyethylene Glycol/Electrolytes (Miralax*) 17 gm PO BEDTIME [facility] Last Admin: 04/30/17 22:32 Dose: 17 gm Potassium Chloride (Klor Con Er Tab*) 40 meq PO BID [facility] Ramipril (Altace Cap*) 5 mg PO DAILY [facility] Sodium Chloride (Sodium Chloride Tab*) 1 gm PO DAILY [facility] Vital Signs 05/01/17 08:00 Temperature 97.0 F Pulse Rate 71 Respiratory 16 Rate Blood Pressure 130/85 (mmHg) O2 Sat by Pulse 96 Oximetry Oxygen Devices in Use Now: Nasal Cannula Appearance: Elderly lady lying in bed in NAD. Eyes: No Scleral Icterus Ears/Nose/Mouth/Throat: Mucous Membranes Moist Neck: Trachea Midline Respiratory: Symmetrical Chest Expansion and Respiratory Effort, Clear to Auscultation Cardiovascular: RRR - Normal S1 and S2 Abdominal: NL Sounds; No Tenderness; No Distention Extremities: - - Mild bilateral UE edema Neurological: - - AAOx2 (self and place), COTE Lines/Tubes/Other Access: Clean, Dry and Intact Peripheral IV Nutrition: Taking PO's Result Diagrams: 05/01/17 08:13 05/01/17 08:13 Assess/Plan/Problems-Billing Assessment: Mrs. Damian is an 82 yo F with PMH of HLD, HTN, COPD vs ILD, PVD, MS, breast CA, SIADH, recent admission for left humerus fracture, who was sent to ED with lethargy, found to have severe hyponatremia. - Patient Problems (1) Hyponatremia Comment: - Secondary to SIADH. - On prior admission patient had low Na, with low serum osmolality and very high urine Osm. - Likely exacerbated now due to recent pneumonia and diuretic use. - Responded to hypertonic saline - Na up to 127. - Will resume fluid restriction and add salt tablets. - Continue to monitor electrolytes. (2) Hypokalemia Comment: - Replete. (3) Hypocalcemia Comment: - Recheck. (4) Urinary retention Comment: - Likely neurogenic bladder associated with MS. - Continue Jordan. (5) HTN (hypertension) Comment: - Controlled. - Continue Atenolol, Diltiazem, and Ramipril. (6) Multiple sclerosis Comment: - Continue Amantadine. (7) DVT prophylaxis Comment: - SQ heparin.
[2017-05-01] MEDS: Potassium Chlor TAB* 20 MEQ TAB.ER PO SCH ×2 (09:59→20:44)
[2017-05-01] MEDS ORDERED: Sodium Chloride TAB* 1 GM PO SCH (10:00)
[2017-05-01] MEDS: Clopidogrel TAB* 75 MG PO SCH (10:03)
[2017-05-01] MEDS: Diltiazem CD CAP* 240 MG PO SCH (10:03)
[2017-05-01] MEDS: Ramipril CAP* 5 MG PO SCH (10:03)
[2017-05-01] MEDS: Ascorbic Acid TAB* 500 MG PO SCH (10:03)
[2017-05-01] MEDS: Atenolol TAB* 50 MG PO SCH (10:03)
[2017-05-01] MEDS: Cholecalciferol TAB* 1000 UNITS PO SCH (10:04)
[2017-05-01] MEDS: KCL 10 MEQ/50 ML IVPREMIX* 10 MEQ/50 ML BAG IV SCH ×3 (10:11→12:54)
[2017-05-01] MEDS: Amantadine LIQ* 50 MG/5 ML UDC PO SCH (14:06)
[2017-05-01 18:12] LABS: Hematocrit 32 % (35-47); Hemoglobin 10.5 g/dl (12.0-16.0)
[2017-05-01 18:21] LABS: Potassium 5.1 mmol/L (3.5-5.0)
[2017-05-01] MEDS ORDERED: NS 0.9% 1000 ML* 1,000 ML IV SCH (19:15)
[2017-05-01 19:28] LABS: BUN/Creatinine Ratio 30.6 (8-20); Calcium 8.5 mg/dL (8.6-10.3); EGFR African American 119.1 (>60); EGFR Non-African American 92.6 (>60)
--- NOTE | 2017-05-01 20:18 | PN ---
Hospitalist Progress Note HOSPITALIST ADDENDUM Labs reviewed. Sample was difficult to obtain and delayed results. Will give NS/Lasix as she responded better to this combo than hypertonic saline. Will repeat BMP 11PM. Signed out to Dr. Feldman.
[2017-05-01] MEDS: Polyethylene Glycol 3350* 17 GM PACKET PO SCH (20:44)
[2017-05-02 00:34] LABS: BUN/Creatinine Ratio 32.8 (8-20); Blood Urea Nitrogen 19 mg/dL (6-24); CO2 Carbon Dioxide 21 mmol/L (22-32); Calcium 8.5 mg/dL (8.6-10.3); Chloride 91 mmol/L (101-111); EGFR African American 128.6 (>60); Glucose 155 mg/dL (70-100)
[2017-05-02 00:35] LABS: Anion Gap 7 mmol/L (2-11); Sodium 119 mmol/L (133-145)
[2017-05-02] MEDS: Heparin VIAL(*) 5000 UNITS/ML VIAL (FIVE THOUSAND) SUBCUT SCH ×3 (05:43→20:57)
[2017-05-02 07:13] LABS: BUN/Creatinine Ratio 38.5 (8-20); Calcium 8.4 mg/dL (8.6-10.3); EGFR African American 145.9 (>60); EGFR Non-African American 113.5 (>60); Potassium 4.8 mmol/L (3.5-5.0)
[2017-05-02] MEDS: Amantadine LIQ* 50 MG/5 ML UDC PO SCH ×2 (09:44→14:43)
[2017-05-02] MEDS: Clopidogrel TAB* 75 MG PO SCH (09:45)
[2017-05-02] MEDS: Ascorbic Acid TAB* 500 MG PO SCH (09:46)
[2017-05-02] MEDS: Potassium Chlor TAB* 20 MEQ TAB.ER PO SCH ×2 (09:46→20:56)
[2017-05-02] MEDS: Demeclocycline TAB* 150 MG PO SCH ×3 (09:46→20:56)
[2017-05-02] MEDS: Diltiazem CD CAP* 240 MG PO SCH (09:46)
[2017-05-02] MEDS: Atenolol TAB* 50 MG PO SCH (09:46)
[2017-05-02] MEDS: Ramipril CAP* 5 MG PO SCH (09:46)
[2017-05-02] MEDS: Cholecalciferol TAB* 1000 UNITS PO SCH (09:46)
[2017-05-02] MEDS: Sodium Chloride TAB* 1 GM PO SCH ×2 (12:22→16:21)
--- NOTE | 2017-05-02 14:20 | PN ---
Subjective Date of Service: 05/02/17 Interval History: HOSPITALIST PROGRESS NOTE Patient seen and examined at bedside. More awake today, offers no new complaints. Family History: Unchanged from Admission Social History: Unchanged from Admission Past Medical History: Unchanged from Admission Objective Active Medications: Acetaminophen (Tylenol Tab*) 650 mg PO Q6H PRN PRN Reason: PAIN Last Admin: 05/01/17 04:26 Dose: 650 mg Albuterol (Ventolin 2.5 Mg/3 Ml Neb.Adeline*) 2.5 mg INH Q6H PRN PRN Reason: SHORTNESS OF BREATH Amantadine HCl (Symmetrel Liq*) 50 mg PO 1400 [facility] Last Admin: 05/01/17 14:06 Dose: 50 mg Amantadine HCl (Symmetrel Liq*) 100 mg PO QAM [facility] Last Admin: 05/02/17 09:44 Dose: 100 mg Ascorbic Acid (Vitamin C Tab*) 500 mg PO DAILY [facility] Last Admin: 05/02/17 09:46 Dose: 500 mg Atenolol (Tenormin Tab*) 100 mg PO DAILY [facility] Last Admin: 05/02/17 09:46 Dose: 100 mg Cholecalciferol (Vitamin D Tab*) 1,000 units PO QAM [facility] Last Admin: 05/02/17 09:46 Dose: 1,000 units Clopidogrel Bisulfate (Plavix Tab*) 75 mg PO DAILY [facility] Last Admin: 05/02/17 09:45 Dose: 75 mg Demeclocycline HCl (Declomycin Tab*) 150 mg PO TID [facility] Last Admin: 05/02/17 09:46 Dose: 150 mg Diltiazem HCl (Cardizem Cd Cap*) 240 mg PO DAILY [facility] Last Admin: 05/02/17 09:46 Dose: 240 mg Guaifenesin/Dextromethorphan (Robitussin Dm*) 10 ml PO Q4H PRN PRN Reason: COUGH Last Admin: 04/30/17 22:33 Dose: 10 ml Heparin Sodium (Porcine) (Heparin Vial(*)) 5,000 units SUBCUT Q8HR [facility] Last Admin: 05/02/17 05:43 Dose: 5,000 units Ondansetron HCl (Zofran Odt Tab*) 4 mg PO Q8H PRN PRN Reason: NAUSEA Oxycodone HCl (Roxycodone Tab*) 5 mg PO Q4H PRN PRN Reason: SEVERE PAIN Polyethylene Glycol/Electrolytes (Miralax*) 17 gm PO BEDTIME [facility] Last Admin: 05/01/17 20:44 Dose: 17 gm Potassium Chloride (Klor Con Er Tab*) 40 meq PO BID [facility] Last Admin: 05/02/17 09:46 Dose: 40 meq Ramipril (Altace Cap*) 5 mg PO DAILY [facility] Last Admin: 05/02/17 09:46 Dose: 5 mg Sodium Chloride (Sodium Chloride Tab*) 1 gm PO AC [facility] Last Admin: 05/02/17 12:22 Dose: 1 gm Vital Signs 05/02/17 05/02/17 11:50 13:16 Temperature 97.5 F Pulse Rate 78 78 Respiratory 22 Rate Blood Pressure 121/44 (mmHg) O2 Sat by Pulse 99 Oximetry Oxygen Devices in Use Now: Nasal Cannula Appearance: Elderly lady lying in bed in NAD. Eyes: No Scleral Icterus Ears/Nose/Mouth/Throat: Mucous Membranes Moist Neck: Trachea Midline Respiratory: Symmetrical Chest Expansion and Respiratory Effort, Clear to Auscultation Cardiovascular: RRR - Normal S1 and S2 Abdominal: NL Sounds; No Tenderness; No Distention Extremities: - - Bilateral UE edema with multiple bruises Neurological: - - More awake, Ox2 (self and place), COTE Lines/Tubes/Other Access: Clean, Dry and Intact Peripheral IV Nutrition: Taking PO's Result Diagrams: 05/01/17 17:40 05/02/17 06:30 Assess/Plan/Problems-Billing Assessment: Mrs. Damian is an 82 yo F with PMH of HLD, HTN, COPD vs ILD, PVD, MS, breast CA, SIADH, recent admission for left humerus fracture, who was sent to ED with lethargy, found to have severe hyponatremia. - Patient Problems (1) Hyponatremia Comment: - Secondary to SIADH. - On prior admission patient had low Na, with low serum osmolality and very high urine Osm. - Likely exacerbated now due to recent pneumonia and diuretic use. - Na up to 120. - Continue fluid restriction, salt tablets, and add Demeclocycline. - Continue to monitor electrolytes. (2) Hypokalemia Comment: - Resolved. (3) Urinary retention Comment: - Likely neurogenic bladder associated with MS. - Continue Jordan. (4) HTN (hypertension) Comment: - Controlled. - Continue Atenolol, Diltiazem, and Ramipril. (5) Multiple sclerosis Comment: - Continue Amantadine. (6) DVT prophylaxis Comment: - SQ heparin. Status and Disposition: Inpatient requiring >48h for stabilization. Transfer to Telemetry.
[2017-05-02] MEDS: Polyethylene Glycol 3350* 17 GM PACKET PO SCH (20:57)
[2017-05-03] MEDS: Heparin VIAL(*) 5000 UNITS/ML VIAL (FIVE THOUSAND) SUBCUT SCH ×3 (05:21→21:36)
[2017-05-03 06:40] LABS: Anion Gap 3 mmol/L (2-11); BUN/Creatinine Ratio 41.8 (8-20); Blood Urea Nitrogen 23 mg/dL (6-24); CO2 Carbon Dioxide 19 mmol/L (22-32); Chloride 91 mmol/L (101-111); EGFR African American 136.8 (>60); EGFR Non-African American 106.3 (>60); Glucose 114 mg/dL (70-100)
[2017-05-03 06:41] LABS: Sodium 113 mmol/L (133-145)
[2017-05-03] MEDS ORDERED: NS 0.9% 500 ML BAG* 500 ML IV SCH ×2 (07:00→13:27)
[2017-05-03] MEDS: Sodium Chloride TAB* 1 GM PO SCH ×3 (07:43→16:47)
[2017-05-03] MEDS: Clopidogrel TAB* 75 MG PO SCH (09:00)
[2017-05-03] MEDS: Atenolol TAB* 50 MG PO SCH (09:01)
[2017-05-03] MEDS: Demeclocycline TAB* 150 MG PO SCH ×3 (09:01→20:36)
[2017-05-03] MEDS: Ramipril CAP* 5 MG PO SCH (09:01)
[2017-05-03] MEDS: Cholecalciferol TAB* 1000 UNITS PO SCH (09:01)
[2017-05-03] MEDS: Ascorbic Acid TAB* 500 MG PO SCH (09:01)
[2017-05-03] MEDS: Diltiazem CD CAP* 240 MG PO SCH (09:01)
[2017-05-03] MEDS: Amantadine LIQ* 50 MG/5 ML UDC PO SCH ×2 (09:02→14:42)
[2017-05-03] MEDS: GuaiFENesin DM* 5 ML UDC PO PRN (09:03)
[2017-05-03 12:30] LABS: BUN/Creatinine Ratio 46.2 (8-20); Blood Urea Nitrogen 24 mg/dL (6-24); CO2 Carbon Dioxide 22 mmol/L (22-32); Calcium 8.3 mg/dL (8.6-10.3); Chloride 95 mmol/L (101-111); EGFR African American 145.9 (>60); EGFR Non-African American 113.5 (>60); Glucose 127 mg/dL (70-100); Sodium 122 mmol/L (133-145)
[2017-05-03 12:47] LABS: Anion Gap 5 mmol/L (2-11)
[2017-05-03] MEDS: Potassium Chlor TAB* 20 MEQ TAB.ER PO SCH (13:27)
--- NOTE | 2017-05-03 14:10 | PN ---
Subjective Date of Service: 05/03/17 Interval History: HOSPITALIST PROGRESS NOTE Patient seen and examined at bedside. She's unchanged from yesterday, offers no complaints. Family History: Unchanged from Admission Social History: Unchanged from Admission Past Medical History: Unchanged from Admission Objective Active Medications: Acetaminophen (Tylenol Tab*) 650 mg PO Q6H PRN PRN Reason: PAIN Last Admin: 05/01/17 04:26 Dose: 650 mg Albuterol (Ventolin 2.5 Mg/3 Ml Neb.Adeline*) 2.5 mg INH Q6H PRN PRN Reason: SHORTNESS OF BREATH Amantadine HCl (Symmetrel Liq*) 50 mg PO 1400 [facility] Last Admin: 05/02/17 14:43 Dose: 50 mg Amantadine HCl (Symmetrel Liq*) 100 mg PO QAM [facility] Last Admin: 05/03/17 09:02 Dose: 100 mg Ascorbic Acid (Vitamin C Tab*) 500 mg PO DAILY [facility] Last Admin: 05/03/17 09:01 Dose: 500 mg Atenolol (Tenormin Tab*) 100 mg PO DAILY [facility] Last Admin: 05/03/17 09:01 Dose: 100 mg Cholecalciferol (Vitamin D Tab*) 1,000 units PO QAM [facility] Last Admin: 05/03/17 09:01 Dose: 1,000 units Clopidogrel Bisulfate (Plavix Tab*) 75 mg PO DAILY [facility] Last Admin: 05/03/17 09:00 Dose: 75 mg Demeclocycline HCl (Declomycin Tab*) 150 mg PO TID [facility] Last Admin: 05/03/17 09:01 Dose: 150 mg Diltiazem HCl (Cardizem Cd Cap*) 240 mg PO DAILY [facility] Last Admin: 05/03/17 09:01 Dose: 240 mg Guaifenesin/Dextromethorphan (Robitussin Dm*) 10 ml PO Q4H PRN PRN Reason: COUGH Last Admin: 05/03/17 09:03 Dose: 10 ml Heparin Sodium (Porcine) (Heparin Vial(*)) 5,000 units SUBCUT Q8HR [facility] Last Admin: 05/03/17 13:31 Dose: 5,000 units Heparin Sodium (Porcine) (Heparin Flush Picc/Ml/Cvc(*)) 1 ml FLUSH 0600,1800 [facility] PRN Reason: Protocol Last Admin: 05/03/17 05:21 Dose: 1 ml Sodium Chloride (Ns 0.9% 500 Ml Bag*) 500 mls @ 150 mls/hr IV PER RATE [facility] Ondansetron HCl (Zofran Odt Tab*) 4 mg PO Q8H PRN PRN Reason: NAUSEA Oxycodone HCl (Roxycodone Tab*) 5 mg PO Q4H PRN PRN Reason: SEVERE PAIN Polyethylene Glycol/Electrolytes (Miralax*) 17 gm PO BEDTIME [facility] Last Admin: 05/02/17 20:57 Dose: 17 gm Ramipril (Altace Cap*) 5 mg PO DAILY [facility] Last Admin: 05/03/17 09:01 Dose: 5 mg Sodium Chloride (Sodium Chloride Tab*) 1 gm PO AC [facility] Last Admin: 05/03/17 13:31 Dose: 1 gm Vital Signs 05/03/17 05/03/17 05/03/17 07:25 07:28 13:19 Temperature 97.9 F 97.5 F Pulse Rate 89 68 Respiratory 14 22 20 Rate Blood Pressure 146/54 124/71 (mmHg) O2 Sat by Pulse 96 96 Oximetry Oxygen Devices in Use Now: Nasal Cannula Appearance: Elderly lady lying in bed in [facility]. Eyes: No Scleral Icterus Ears/Nose/Mouth/Throat: Mucous Membranes Moist Neck: Trachea Midline Respiratory: Symmetrical Chest Expansion and Respiratory Effort, Clear to Auscultation Cardiovascular: RRR - Normal S1 and S2 Abdominal: NL Sounds; No Tenderness; No Distention Extremities: - - Bilateral UE edema Neurological: - - AAox2 (self and place), COTE Lines/Tubes/Other Access: Clean, Dry and Intact Peripheral IV Nutrition: Taking PO's Result Diagrams: 05/01/17 17:40 05/03/17 11:35 Assess/Plan/Problems-Billing Assessment: Mrs. Damian is an 82 yo F with PMH of HLD, HTN, COPD vs ILD, PVD, MS, breast CA, SIADH, recent admission for left humerus fracture, who was sent to ED with lethargy, found to have severe hyponatremia. - Patient Problems (1) Hyponatremia Comment: - Secondary to SIADH, but she also seems to be dehydrated as she is responding to IVF. - On prior admission patient had low Na, with low serum osmolality and very high urine Osm compatible with SIADH. - Likely exacerbated now due to recent pneumonia and diuretic use. - Na up to 122. - Continue fluid restriction, salt tablets, and Demeclocycline. - As she responded to IVF, will continue it for now and repeat BMP at 4PM. - Continue to monitor electrolytes. (2) Hypokalemia Comment: - Resolved. (3) Urinary retention Comment: - Likely neurogenic bladder associated with MS. - Continue Jordan. (4) HTN (hypertension) Comment: - Controlled. - Continue Atenolol, Diltiazem, and Ramipril. (5) Multiple sclerosis Comment: - Continue Amantadine. (6) DVT prophylaxis Comment: - SQ heparin. Status and Disposition: Inpatient requiring >48h for stabilization.
[2017-05-03 17:20] LABS: Calcium 8.4 mg/dL (8.6-10.3); EGFR African American 156.3 (>60); EGFR Non-African American 121.5 (>60); Potassium 4.9 mmol/L (3.5-5.0)
[2017-05-03] MEDS: Polyethylene Glycol 3350* 17 GM PACKET PO SCH (20:32)
[2017-05-03] MEDS: oxyCODONE TAB* 5 MG TAB PO PRN (20:37)
[2017-05-04 05:15] LABS: Hematocrit 34 % (35-47); Hemoglobin 11.1 g/dl (12.0-16.0); Mean Corpuscular HGB Conc 33 g/dl (31-36); Mean Corpuscular Hemoglobin 31 pg (27-31); Mean Corpuscular Volume 94 fL (80-97); Mean Platelet Volume 8 um3 (7.4-10.4); Red Blood Count 3.59 10^6/ul (4.0-5.4); Red Cell Distribution Width 15 % (10.5-15); White Blood Count 13.9 10^3/ul (3.5-10.8)
[2017-05-04] MEDS: Heparin VIAL(*) 5000 UNITS/ML VIAL (FIVE THOUSAND) SUBCUT SCH ×3 (05:21→22:04)
[2017-05-04 05:28] LABS: Calcium 8.7 mg/dL (8.6-10.3); EGFR African American 152.7 (>60); EGFR Non-African American 118.7 (>60); Potassium 4.6 mmol/L (3.5-5.0)
[2017-05-04] MEDS: Diltiazem CD CAP* 240 MG PO SCH (08:47)
[2017-05-04] MEDS: Cholecalciferol TAB* 1000 UNITS PO SCH (08:47)
[2017-05-04] MEDS: Amantadine LIQ* 50 MG/5 ML UDC PO SCH ×2 (08:47→15:57)
[2017-05-04] MEDS: Clopidogrel TAB* 75 MG PO SCH (08:48)
[2017-05-04] MEDS: Ascorbic Acid TAB* 500 MG PO SCH (08:48)
[2017-05-04] MEDS: Ramipril CAP* 5 MG PO SCH (08:48)
[2017-05-04] MEDS: Demeclocycline TAB* 150 MG PO SCH ×3 (08:48→22:03)
[2017-05-04] MEDS: Sodium Chloride TAB* 1 GM PO SCH ×3 (08:48→17:43)
[2017-05-04] MEDS: Atenolol TAB* 50 MG PO SCH (08:48)
[2017-05-04] MEDS ORDERED: Furosemide IV* 10 MG/ML 2 ML VIAL (20 MG) IV SLOW PU ONE (11:23)
--- NOTE | 2017-05-04 11:25 | PN ---
Subjective Date of Service: 05/04/17 Interval History: HOSPITALIST PROGRESS NOTE Patient seen and examined at bedside. She's more lethargic today, more dyspneic with audible gurgling sounds. Opens eyes when called, but did not talk to me. Family History: Unchanged from Admission Social History: Unchanged from Admission Past Medical History: Unchanged from Admission Objective Active Medications: Acetaminophen (Tylenol Tab*) 650 mg PO Q6H PRN PRN Reason: PAIN Last Admin: 05/01/17 04:26 Dose: 650 mg Albuterol (Ventolin 2.5 Mg/3 Ml Neb.Adeline*) 2.5 mg INH Q6H PRN PRN Reason: SHORTNESS OF BREATH Amantadine HCl (Symmetrel Liq*) 50 mg PO 1400 [facility] Last Admin: 05/03/17 14:42 Dose: 50 mg Amantadine HCl (Symmetrel Liq*) 100 mg PO QAM [facility] Last Admin: 05/04/17 08:47 Dose: 100 mg Ascorbic Acid (Vitamin C Tab*) 500 mg PO DAILY [facility] Last Admin: 05/04/17 08:48 Dose: 500 mg Atenolol (Tenormin Tab*) 100 mg PO DAILY [facility] Last Admin: 05/04/17 08:48 Dose: 100 mg Cholecalciferol (Vitamin D Tab*) 1,000 units PO QAM [facility] Last Admin: 05/04/17 08:47 Dose: 1,000 units Clopidogrel Bisulfate (Plavix Tab*) 75 mg PO DAILY [facility] Last Admin: 05/04/17 08:48 Dose: 75 mg Demeclocycline HCl (Declomycin Tab*) 150 mg PO TID [facility] Last Admin: 05/04/17 08:48 Dose: 150 mg Diltiazem HCl (Cardizem Cd Cap*) 240 mg PO DAILY [facility] Last Admin: 05/04/17 08:47 Dose: 240 mg Furosemide (Lasix Iv*) 20 mg IV SLOW PU ONCE ONE Stop: 05/04/17 11:24 Guaifenesin/Dextromethorphan (Robitussin Dm*) 10 ml PO Q4H PRN PRN Reason: COUGH Last Admin: 05/03/17 09:03 Dose: 10 ml Heparin Sodium (Porcine) (Heparin Vial(*)) 5,000 units SUBCUT Q8HR [facility] Last Admin: 05/04/17 05:21 Dose: 5,000 units Heparin Sodium (Porcine) (Heparin Flush Picc/Ml/Cvc(*)) 1 ml FLUSH 0600,1800 [facility] PRN Reason: Protocol Last Admin: 05/04/17 05:17 Dose: 1 ml Ondansetron HCl (Zofran Odt Tab*) 4 mg PO Q8H PRN PRN Reason: NAUSEA Last Admin: 05/04/17 09:03 Dose: 4 mg Oxycodone HCl (Roxycodone Tab*) 5 mg PO Q4H PRN PRN Reason: SEVERE PAIN Last Admin: 05/03/17 20:37 Dose: 5 mg Polyethylene Glycol/Electrolytes (Miralax*) 17 gm PO BEDTIME [facility] Last Admin: 05/03/17 20:32 Dose: 17 gm Ramipril (Altace Cap*) 5 mg PO DAILY [facility] Last Admin: 05/04/17 08:48 Dose: 5 mg Sodium Chloride (Sodium Chloride Tab*) 1 gm PO AC [facility] Last Admin: 05/04/17 08:48 Dose: 1 gm Vital Signs 05/04/17 05/04/17 05/04/17 07:29 07:31 08:00 Temperature 98.4 F Pulse Rate 99 96 Respiratory 22 22 Rate Blood Pressure 141/84 (mmHg) O2 Sat by Pulse 97 97 Oximetry Oxygen Devices in Use Now: Nasal Cannula - 2 liters Appearance: Elderly lady lying in bed in NAD. Eyes: No Scleral Icterus Ears/Nose/Mouth/Throat: Mucous Membranes Moist Neck: Trachea Midline Respiratory: Symmetrical Chest Expansion and Respiratory Effort, - - BS+ bilaterally with bilateral rales Cardiovascular: RRR - Normal S1 and S2 Abdominal: NL Sounds; No Tenderness; No Distention Extremities: - - Bilateral UE edema Neurological: - - Lethargic, arousable to voice, did not answer questions Lines/Tubes/Other Access: Clean, Dry and Intact Jordan, Clean, Dry and Intact Peripheral IV Nutrition: Taking PO's Result Diagrams: 05/04/17 05:03 05/04/17 05:03 Assess/Plan/Problems-Billing Assessment: Mrs. Damian is an 82 yo F with PMH of HLD, HTN, COPD vs ILD, PVD, MS, breast CA, SIADH, recent admission for left humerus fracture, who was sent to ED with lethargy, found to have severe hyponatremia. - Patient Problems (1) Lethargy Comment: - Na has improved, but she's more lethargic today. It could be she'll take more time to respond to sodium normalization, but I'm concerned with possible infection (remains afebrile, but WBC is trending up). - UA was abnormal, but culture was negative. - She recently completed 1 week of Levofloxacin as outpatient for possible pneumonia. - CxR shows bibasilar atelectasis vs consolidation and left apical consolidation , also shows interstitial edema. I'm concerned with the possibility of aspiration pneumonia - will start Zosyn and Azithromycin (to cover atypicals). - D/w her neurologist (Dr. Araya) - he thinks it's unlikely MS is playing a role on her presentation as she has not had an exacerbation in 30 years. (2) Fluid overload Comment: - CxR shows vascular congestion. - Will give Furosemide 20mg IV and monitor respiratory status. - Continue to monitor her sodium. (3) Hyponatremia Comment: - Multifactorial - likely a combination of SIADH and dehydration as she responded to IVF, but now showing signs of fluid overload. - On prior admission patient had low Na, with low serum osmolality and very high urine Osm compatible with SIADH. - Likely exacerbated now due to recent pneumonia and diuretic use. - Na up to 126, but more lethargic today. - Continue fluid restriction, salt tablets, and Demeclocycline. - D/c IVF. - Continue to monitor electrolytes. (4) Hypokalemia Comment: - Resolved. (5) Urinary retention Comment: - Likely neurogenic bladder associated with MS. - Continue Jordan. (6) HTN (hypertension) Comment: - Controlled. - Continue Atenolol, Diltiazem, and Ramipril. (7) Multiple sclerosis Comment: - Continue Amantadine. (8) DVT prophylaxis Comment: - SQ heparin. (9) Full code status Comment: - D/w daughter and HCP Esther - patient would want aggressive measures like intubation, mechanical ventilation for a short period of time, but not penitentiary. Status and Disposition: Inpatient requiring >48h for stabilization. Daughter Esther called at and updated.
--- NOTE | 2017-05-04 12:01 | RAD ---
HISTORY: Dyspnea COMPARISONS: April 30, 2017 VIEWS:1: Single frontal portable view of the chest at 11:30 AM FINDINGS: LINES AND TUBES: None. CARDIOMEDIASTINAL SILHOUETTE: The cardiomediastinal silhouette is stable. PLEURA: There are moderate bilateral pleural effusions LUNG PARENCHYMA: There is a diffuse reticular pattern with indistinct pulmonary vessels. There is patchy alveolar opacification of the lung bases bilaterally and left upper lung ABDOMEN: The upper abdomen is clear. There is no subphrenic gas. BONES AND SOFT TISSUES: No bone or soft tissue abnormalities are noted. IMPRESSION: 1. PULMONARY INTERSTITIAL EDEMA. 2. MODERATE BILATERAL PLEURAL EFFUSIONS. 3. BIBASILAR ATELECTASIS VERSUS CONSOLIDATION. 4. LEFT APICAL CONSOLIDATION.
[2017-05-04] MEDS ORDERED: Zosyn per Pharmacy* NOTE FOLLOW UP SCH (15:00)
[2017-05-04] MEDS ORDERED: Cefepime(*) 1 GM in NS 0.9% 50 ML* 50 ML IVPB SCH (15:00)
[2017-05-04] MEDS: Azithromycin IV(*) 500 MG in NS 0.9% 250 ML* 250 ML IVPB SCH (17:47)
[2017-05-04] MEDS: Polyethylene Glycol 3350* 17 GM PACKET PO SCH (22:03)
[2017-05-04 22:23] LABS: Magnesium 2.2 mg/dL (1.9-2.7)
[2017-05-05 05:05] LABS: Hematocrit 33 % (35-47); Hemoglobin 10.8 g/dl (12.0-16.0); Mean Corpuscular HGB Conc 33 g/dl (31-36); Mean Corpuscular Hemoglobin 31 pg (27-31); Mean Corpuscular Volume 94 fL (80-97); Mean Platelet Volume 8 um3 (7.4-10.4); Red Blood Count 3.49 10^6/ul (4.0-5.4); Red Cell Distribution Width 15 % (10.5-15); White Blood Count 10.1 10^3/ul (3.5-10.8)
[2017-05-05 05:23] LABS: BUN/Creatinine Ratio 42.3 (8-20); C Reactive Protein 154.24 mg/L (< 5.00); Calcium 8.8 mg/dL (8.6-10.3); EGFR African American 145.9 (>60); EGFR Non-African American 113.5 (>60); Potassium 3.8 mmol/L (3.5-5.0)
[2017-05-05] MEDS: Heparin VIAL(*) 5000 UNITS/ML VIAL (FIVE THOUSAND) SUBCUT SCH ×3 (05:57→21:54)
--- NOTE | 2017-05-05 11:47 | RAD ---
INDICATION: Swelling, fracture of the left shoulder. COMPARISON: There are no prior studies available for comparison. TECHNIQUE: Multiple real-time, color flow and Doppler tracings of the left upper extremity were obtained. FINDINGS: The internal jugular, axillary and subclavian veins demonstrate normal Doppler signal and grayscale imaging. The axillary vein was compressible. There is no evidence for deep venous thrombosis. The remaining portion of the left upper extremity was not imaged, the patient is in a sling. IMPRESSION: LIMITED STUDY, THE PATIENT IS IN A SLING. THERE IS NO EVIDENCE FOR DEEP VENOUS THROMBOSIS WITHIN THE INTERNAL JUGULAR, SUBCLAVIAN AND AXILLARY VEINS.
--- NOTE | 2017-05-05 12:25 | ECHO ---
Patient: JADE GUTIERREZ [facility] Rec#: [id number] : 1935 Date: 05/05/2017 Age: 82y Height: 162.56 cm / 64.0 in Weight: 78.47 kg / 172.9 lbs Sex: F BSA: 1.84 Room#: 434 Admit Date#: 04/30/2017 Type: Inpatient Referring: Silvia Jang MD Reading: Irvin Connell MD Composition Stone Applicator: Kimberly Bolaños,CRUZCS,RDMS CC: Pallavi Yan MD Transthoracic Echocardiogram Indication: CHF, Dyspnea BP: 138/71 HR: 90 Rhythm: A-Fib Findings History: HTN, HLD, COPD, MS, PVD, , restrictive cardiomyopathy, , breast cancer, radiation Technical Comments: The study quality is fair. Left Ventricle: The left ventricular chamber size is normal. Mild concentric left ventricular hypertrophy is observed. Mild global hypokinesis of the left ventricle is observed. There is mildly decreased left ventricular systolic function. The estimated ejection fraction is 45-50%. The assessment of diastolic function is non-diagnostic. Left Atrium: The left atrium is moderately dilated. Right Ventricle: The right ventricular chamber size and systolic function are within normal limits. Right Atrium: The right atrial cavity size is normal. Aortic Valve: The aortic valve is trileaflet. The aortic valve leaflets are moderately thickened. Systolic excursion of the aortic valve cusps is reduced. There is mild aortic regurgitation. There is moderate aortic stenosis. The mean gradient of the aortic valve is 18.2 mmHg. The aortic valve area, by peak velocities, is calculated at 0.9 cm2. Mitral Valve: Moderate mitral annular calcification present. The mitral valve leaflets are moderately thickened. There is moderate mitral regurgitation. The mitral regurgitant jet is eccentric. There is mild mitral stenosis. Tricuspid Valve: The tricuspid valve leaflets are normal. There is moderate tricuspid regurgitation. There is evidence of mild pulmonary hypertension. Pulmonic Valve: The pulmonic valve structure is not well visualized. There is trace to mild pulmonic regurgitation. Pericardium: A trivial pericardial effusion is visualized. A left pleural effusion is present. Aorta: The aortic root appears normal. There is no dilatation of the aortic arch. Pulmonary Artery: The main pulmonary artery is not well visualized. Venous: The inferior vena cava appears normal in size. There is less than 50% respiratory change in the inferior vena cava dimension. Summary: There was not any prior study for comparison. Conclusions There is mildly decreased left ventricular systolic function. Mild global hypokinesis of the left ventricle is observed. The estimated ejection fraction is 45-50%. Systolic excursion of the aortic valve cusps is reduced. There is moderate aortic stenosis. The mean gradient of the aortic valve is 18.2 mmHg. There is moderate mitral regurgitation. There is moderate tricuspid regurgitation. There is evidence of mild pulmonary hypertension. A trivial pericardial effusion is visualized. Measurements Name Value Normal Range RVIDd (AP) 2D 1.9 cm (0.9 - 2.6) RAd ISD 4CH 4.8 cm (3.4 - 4.9) RA (A4C)W 4.1 cm (2.9 - 4.6) IVSd (2D) 1.2 cm (0.6 - 1) LVPWd (2D) 1.1 cm (0.6 - 1) LVIDd (2D) 3.9 cm (3.6 - 5.4) LVIDs (2D) 2.4 cm - LV FS (2D) 38 % (25 - 45) Aortic Annulus 1.9 cm (1.4 - 2.6) Ao root diameter (2D) 2.2 cm (2.1 - 3.5) Ascending Ao 2.8 cm (2.1 - 3.4) Aortic arch 2.7 cm (1.8 - 3.4) LA dimension (AP) 2D 4.4 cm (2.3 - 3.8) LAd ISD 4CH 5.1 cm (2.9 - 5.3) LA ISD 4CH W 4.8 cm (2.5 - 4.5) Name Value Normal Range LA ESV SP 4CH (A/L) 75.09 ml - LA ESV SP 2CH (A/L) 97.48 ml - LA ESV BP (A/L) 88.28 ml - LA ESV BP (A/L) index 48 ml/m2 - LA ESV SP 4CH (MOD) 65.63 ml - LA ESV SP 2CH (MOD) 94.84 ml - Name Value Normal Range MV E-wave Vmax 1.4 m/sec - MV deceleration time 187 msec - LV lateral e' Vmax 0.05 m/sec - LV E:e' lateral ratio 28 ratio - Name Value Normal Range AV Vmax 2.8 m/sec - AV VTI 57.3 cm - AV peak gradient 32.2 mmHg - AV mean gradient 18.2 mmHg - LVOT diameter 2 cm - LVOT Vmax 0.8 m/sec - LVOT VTI 15.2 cm - LVOT peak gradient 2.6 mmHg - LVOT mean gradient 1.2 mmHg - DOI (VTI) 0.3 ratio - HENRIQUE (continuity Vmax) 0.9 cm2 - HENRIQUE (continuity VTI) 0.8 cm2 - AR PHT 514.42 msec - AR peak gradient 61.18 mmHg - Name Value Normal Range MV Vmax 1.5 m/sec - MV VTI 25.8 cm - MV peak gradient 9 mmHg - MV mean gradient 3.8 mmHg - MV PHT 61 msec - MR Vmax 6.3 m/sec - MR VTI 184 cm - MR flow (PISA) 93.1 ml/sec - MR PISA radius 0.6 cm - MR alias Vmax 37 cm/sec - MVA (PHT) 3.6 cm2 - MVA (continuity VTI) 1.9 cm2 - Name Value Normal Range TR Vmax 3 m/sec - TR peak gradient 36 mmHg - RAP 3 mmHg - RVSP 39 mmHg - IVC diameter 1.7 cm - Name Value Normal Range PV Vmax 0.4 m/sec - PV peak gradient 0.6 mmHg -
[2017-05-05] MEDS: Sodium Chloride TAB* 1 GM PO SCH ×3 (12:32→15:22)
[2017-05-05] MEDS: Ascorbic Acid TAB* 500 MG PO SCH (12:32)
[2017-05-05] MEDS: Diltiazem CD CAP* 240 MG PO SCH (12:32)
[2017-05-05] MEDS: Clopidogrel TAB* 75 MG PO SCH (12:32)
[2017-05-05] MEDS: Atenolol TAB* 50 MG PO SCH (12:32)
[2017-05-05] MEDS: Ramipril CAP* 5 MG PO SCH (12:33)
[2017-05-05] MEDS: Cholecalciferol TAB* 1000 UNITS PO SCH (12:33)
[2017-05-05] MEDS: Amantadine LIQ* 50 MG/5 ML UDC PO SCH ×2 (12:33→12:47)
[2017-05-05] MEDS: Demeclocycline TAB* 150 MG PO SCH ×3 (12:48→21:54)
[2017-05-05] MEDS: Azithromycin IV(*) 500 MG in NS 0.9% 250 ML* 250 ML IVPB SCH (15:22)
[2017-05-05] MEDS: oxyCODONE TAB* 5 MG TAB PO PRN (15:30)
--- NOTE | 2017-05-05 16:10 | PN ---
Subjective Date of Service: 05/05/17 Interval History: Patient too lethargic to give a meaningful history/ROS. Family History: Unchanged from Admission Social History: Unchanged from Admission Past Medical History: Unchanged from Admission Objective Active Medications: Acetaminophen (Tylenol Tab*) 650 mg PO Q6H PRN PRN Reason: PAIN Last Admin: 05/01/17 04:26 Dose: 650 mg Albuterol (Ventolin 2.5 Mg/3 Ml Neb.Adeline*) 2.5 mg INH Q6H PRN PRN Reason: SHORTNESS OF BREATH Amantadine HCl (Symmetrel Liq*) 50 mg PO 1400 [facility] Last Admin: 05/05/17 12:33 Dose: 50 mg Amantadine HCl (Symmetrel Liq*) 100 mg PO QAM [facility] Last Admin: 05/05/17 12:47 Dose: 100 mg Ascorbic Acid (Vitamin C Tab*) 500 mg PO DAILY [facility] Last Admin: 05/05/17 12:32 Dose: 500 mg Atenolol (Tenormin Tab*) 100 mg PO DAILY [facility] Last Admin: 05/05/17 12:32 Dose: 100 mg Cholecalciferol (Vitamin D Tab*) 1,000 units PO QAM [facility] Last Admin: 05/05/17 12:33 Dose: 1,000 units Clopidogrel Bisulfate (Plavix Tab*) 75 mg PO DAILY [facility] Last Admin: 05/05/17 12:32 Dose: 75 mg Demeclocycline HCl (Declomycin Tab*) 150 mg PO TID [facility] Last Admin: 05/05/17 13:46 Dose: 150 mg Diltiazem HCl (Cardizem Cd Cap*) 240 mg PO DAILY [facility] Last Admin: 05/05/17 12:32 Dose: 240 mg Guaifenesin/Dextromethorphan (Robitussin Dm*) 10 ml PO Q4H PRN PRN Reason: COUGH Last Admin: 05/03/17 09:03 Dose: 10 ml Heparin Sodium (Porcine) (Heparin Vial(*)) 5,000 units SUBCUT Q8HR [facility] Last Admin: 05/05/17 13:47 Dose: 5,000 units Heparin Sodium (Porcine) (Heparin Flush Picc/Ml/Cvc(*)) 1 ml FLUSH 0600,1800 [facility] PRN Reason: Protocol Last Admin: 05/05/17 05:58 Dose: 1 ml Azithromycin 500 mg/ Sodium (Chloride) 250 mls @ 250 mls/hr IVPB Q24H [facility] Last Admin: 05/05/17 15:22 Dose: 250 mls/hr Oxycodone HCl (Roxycodone Tab*) 5 mg PO Q4H PRN PRN Reason: SEVERE PAIN Last Admin: 05/05/17 15:30 Dose: 5 mg Pharmacy Consult (Zosyn Per Pharmacy*) 1 note FOLLOW UP .ZOSYN PER PHARMACY [facility] Polyethylene Glycol/Electrolytes (Miralax*) 17 gm PO BEDTIME [facility] Last Admin: 05/04/17 22:03 Dose: Not Given Ramipril (Altace Cap*) 5 mg PO DAILY [facility] Last Admin: 05/05/17 12:33 Dose: 5 mg Sodium Chloride (Sodium Chloride Tab*) 1 gm PO AC [facility] Last Admin: 05/05/17 15:22 Dose: 1 gm Vital Signs 05/04/17 05/04/17 05/04/17 19:46 20:00 23:57 Temperature 99.0 F 99.0 F Pulse Rate 78 76 Respiratory 18 20 20 Rate Blood Pressure 114/80 132/72 (mmHg) O2 Sat by Pulse 100 99 Oximetry 05/05/17 05/05/17 05/05/17 03:15 03:27 06:50 Temperature 97.9 F Pulse Rate 80 76 Respiratory 20 20 20 Rate Blood Pressure 138/71 (mmHg) O2 Sat by Pulse 98 99 Oximetry 05/05/17 05/05/17 05/05/17 07:25 11:31 15:27 Temperature 98.5 F 97.3 F 98.4 F Pulse Rate 90 93 82 Respiratory 20 20 12 Rate Blood Pressure 148/72 144/72 141/62 (mmHg) O2 Sat by Pulse 97 95 98 Oximetry 05/05/17 15:30 Temperature Pulse Rate Respiratory 18 Rate Blood Pressure (mmHg) O2 Sat by Pulse Oximetry Oxygen Devices in Use Now: Nasal Cannula - 2 liters Appearance: Head partly up, lethargic. Looks comfortable. Eyes: No Scleral Icterus Respiratory: Symmetrical Chest Expansion and Respiratory Effort, Clear to Auscultation, Clear to Percussion Cardiovascular: NL Sounds; No Murmurs; No JVD, RRR, No Edema, - Extremities: No Edema, No Clubbing, Cyanosis, - Skin: No Rash or Ulcers, No Nodules or Sclerosis, - Neurological: - - Poorly responsive. No tremor. Result Diagrams: 05/06/17 06:41 05/06/17 05:13 Additional Lab and Data: Lab Results 04/30/17 04/30/17 04/30/17 Range/Units 15:27 15:27 15:27 WBC 8.3 (3.5-10.8) 10^3/ul RBC 3.47 L (4.0-5.4) 10^6/ul Hgb 10.9 L (12.0-16.0) g/dl Hct 32 L (35-47) % MCV 92 (80-97) fL MCH 31 (27-31) pg MCHC 34 (31-36) g/dl RDW 14 (10.5-15) % Plt Count 350 (150-450) 10^3/ul MPV 8 (7.4-10.4) um3 Neut % (Auto) 79.0 (38-83) % Lymph % (Auto) 9.2 L (25-47) % [place] % (Auto) 8.4 (1-9) % Eos % (Auto) 3.3 (0-6) % Baso % (Auto) 0.1 (0-2) % Absolute Neuts (auto) 6.5 (1.5-7.7) 10^3/ul Absolute Lymphs (auto) 0.8 L (1.0-4.8) 10^3/ul Absolute Monos (auto) 0.7 (0-0.8) 10^3/ul Absolute Eos (auto) 0.3 (0-0.6) 10^3/ul Absolute Basos (auto) 0 (0-0.2) 10^3/ul Absolute Nucleated RBC 0 10^3/ul Nucleated RBC % 0 INR (Anticoag Therapy) 0.99 (0.89-1.11) APTT 30.0 (26.0-36.3) seconds Sodium 112 L* (133-145) mmol/L Potassium TNP Chloride 82 L (101-111) mmol/L Carbon Dioxide 23 (22-32) mmol/L Anion Gap 7 (2-11) mmol/L BUN 18 (6-24) mg/dL Creatinine 0.57 (0.51-0.95) mg/dL Est GFR ( Amer) 131.2 (>60) Est GFR (Non-Af Amer) 102.1 (>60) BUN/Creatinine Ratio 31.6 H (8-20) Glucose 141 H (70-100) mg/dL Lactic Acid (0.5-2.0) mmol/L Calcium 8.6 (8.6-10.3) mg/dL Magnesium 1.7 L (1.9-2.7) mg/dL Total Bilirubin 0.40 (0.2-1.0) mg/dL AST TNP ALT 15 (7-52) U/L Alkaline Phosphatase 86 (34-104) U/L Total Creatine Kinase 152 (10-223) U/L CK-MB (CK-2) 6.9 H (0.6-6.3) ng/mL Troponin I 0.05 H* (<0.04) ng/mL C-Reactive Protein 97.39 H (< 5.00) mg/L B-Natriuretic Peptide ( - 100) pg/mL Total Protein 6.7 (6.4-8.9) g/dL Albumin 2.9 L (3.2-5.2) g/dL Globulin 3.8 (2-4) g/dL Albumin/Globulin Ratio 0.8 L (1-3) Lipase 39 (11.0-82.0) U/L TSH 1.07 (0.34-5.60) mcIU/mL 04/30/17 04/30/17 Range/Units 15:27 15:27 WBC (3.5-10.8) 10^3/ul RBC (4.0-5.4) 10^6/ul Hgb (12.0-16.0) g/dl Hct (35-47) % MCV (80-97) fL MCH (27-31) pg MCHC (31-36) g/dl RDW (10.5-15) % Plt Count (150-450) 10^3/ul MPV (7.4-10.4) um3 Neut % (Auto) (38-83) % Lymph % (Auto) (25-47) % [place] % (Auto) (1-9) % Eos % (Auto) (0-6) % Baso % (Auto) (0-2) % Absolute Neuts (auto) (1.5-7.7) 10^3/ul Absolute Lymphs (auto) (1.0-4.8) 10^3/ul Absolute Monos (auto) (0-0.8) 10^3/ul Absolute Eos (auto) (0-0.6) 10^3/ul Absolute Basos (auto) (0-0.2) 10^3/ul Absolute Nucleated RBC 10^3/ul Nucleated RBC % INR (Anticoag Therapy) (0.89-1.11) APTT (26.0-36.3) seconds Sodium (133-145) mmol/L Potassium Chloride (101-111) mmol/L Carbon Dioxide (22-32) mmol/L Anion Gap (2-11) mmol/L BUN (6-24) mg/dL Creatinine (0.51-0.95) mg/dL Est GFR ( Amer) (>60) Est GFR (Non-Af Amer) (>60) BUN/Creatinine Ratio (8-20) Glucose (70-100) mg/dL Lactic Acid 1.4 (0.5-2.0) mmol/L Calcium (8.6-10.3) mg/dL Magnesium (1.9-2.7) mg/dL Total Bilirubin (0.2-1.0) mg/dL AST ALT (7-52) U/L Alkaline Phosphatase (34-104) U/L Total Creatine Kinase (10-223) U/L CK-MB (CK-2) (0.6-6.3) ng/mL Troponin I (<0.04) ng/mL C-Reactive Protein (< 5.00) mg/L B-Natriuretic Peptide 366 H ( - 100) pg/mL Total Protein (6.4-8.9) g/dL Albumin (3.2-5.2) g/dL Globulin (2-4) g/dL Albumin/Globulin Ratio (1-3) Lipase (11.0-82.0) U/L TSH (0.34-5.60) mcIU/mL Microbiology and Other Data: Microbiology 04/30/17 17:50 Nasal Screen MRSA (PCR)(DOMINICK) - Final Nasal Mrsa Negative Assess/Plan/Problems-Billing Assessment: Mrs. Damian is an 82 yo F with PMH of HLD, HTN, COPD vs ILD, PVD, MS, breast CA, SIADH, recent admission for left humerus fracture, who was sent to ED with lethargy, found to have severe hyponatremia. - Patient Problems (1) Hyponatremia Current Visit: Yes Status: Acute Code(s): E87.1 - HYPO-OSMOLALITY AND HYPONATREMIA SNOMED Code(s): 63759811 Comment: Urine output 2350 ml 05/05, intake 385 ml. NaCl tablets stopped, demeclocycline reduced to 150 mg daily. BMP 05/07 then q 1-3 days until stable. Fluid restriction 1500 ml/day. (2) Lethargy Current Visit: Yes Status: Acute Code(s): R53.83 - OTHER FATIGUE SNOMED Code(s): 758199321 Comment: Note for 05/06: Probably at her (new) baseline, likely more alert in AM. I met with benito Santana, her and son and discussed her dx's, management , prognosis and Palliative Care. (3) Multiple sclerosis Current Visit: Yes Status: Acute Code(s): G35 - MULTIPLE SCLEROSIS SNOMED Code(s): 57427768 Comment: - Continue Amantadine. (4) Hypothyroidism Current Visit: No Status: Acute Code(s): E03.9 - HYPOTHYROIDISM, UNSPECIFIED SNOMED Code(s): 56047652 Comment: TSH wnl 04/30. Continue synthroid (5) Left humeral fracture Current Visit: Yes Status: Acute Code(s): S42.302A - UNSP FRACTURE OF SHAFT OF HUMERUS, LEFT ARM, INIT SNOMED Code(s): 19350151 Comment: Pain control seems adequate. CT shows L humerus greater tuberosity fx 04/19/17. Dr. Vee recommended immobilization for 3-6 weeks and outpatient follow-up. Status and Disposition: Inpatient requiring >48h for stabilization. Daughter Esther called at and updated.
--- NOTE | 2017-05-05 16:45 | RAD ---
Indication: Evaluate for pneumonia. 2 views of the chest demonstrates cardiomegaly. Interstitial edema is noted. Bilateral pleural effusions are noted. Compared to previous exam of May 04, 2017 findings appear similar. IMPRESSION: Cardiomegaly with interstitial edema and bilateral pleural effusions.
[2017-05-05] MEDS: Polyethylene Glycol 3350* 17 GM PACKET PO SCH (21:54)
[2017-05-06] MEDS: oxyCODONE TAB* 5 MG TAB PO PRN (02:47)
[2017-05-06 05:47] LABS: BUN/Creatinine Ratio 52.3 (8-20); Calcium 8.8 mg/dL (8.6-10.3); EGFR African American 176.9 (>60); EGFR Non-African American 137.6 (>60)
[2017-05-06] MEDS: Heparin VIAL(*) 5000 UNITS/ML VIAL (FIVE THOUSAND) SUBCUT SCH ×3 (06:02→21:18)
[2017-05-06 07:23] LABS: Hematocrit 39 % (35-47); Hemoglobin 12.6 g/dl (12.0-16.0); Mean Corpuscular HGB Conc 33 g/dl (31-36); Mean Corpuscular Hemoglobin 31 pg (27-31); Mean Corpuscular Volume 94 fL (80-97); Mean Platelet Volume 8 um3 (7.4-10.4); Red Cell Distribution Width 15 % (10.5-15); White Blood Count 8.2 10^3/ul (3.5-10.8)
--- NOTE | 2017-05-06 08:40 | PN ---
Subjective Date of Service: 05/06/17 Interval History: She denies pain, hunger. She offers no c/o. Family History: Unchanged from Admission Social History: Unchanged from Admission Past Medical History: Unchanged from Admission Objective Active Medications: Acetaminophen (Tylenol Tab*) 650 mg PO Q6H PRN PRN Reason: PAIN Last Admin: 05/01/17 04:26 Dose: 650 mg Albuterol (Ventolin 2.5 Mg/3 Ml Neb.Adeline*) 2.5 mg INH Q6H PRN PRN Reason: SHORTNESS OF BREATH Amantadine HCl (Symmetrel Liq*) 50 mg PO 1400 [facility] Last Admin: 05/05/17 12:33 Dose: 50 mg Amantadine HCl (Symmetrel Liq*) 100 mg PO QAM [facility] Last Admin: 05/05/17 12:47 Dose: 100 mg Ascorbic Acid (Vitamin C Tab*) 500 mg PO DAILY [facility] Last Admin: 05/05/17 12:32 Dose: 500 mg Atenolol (Tenormin Tab*) 100 mg PO DAILY [facility] Last Admin: 05/05/17 12:32 Dose: 100 mg Cholecalciferol (Vitamin D Tab*) 1,000 units PO QAM [facility] Last Admin: 05/05/17 12:33 Dose: 1,000 units Clopidogrel Bisulfate (Plavix Tab*) 75 mg PO DAILY [facility] Last Admin: 05/05/17 12:32 Dose: 75 mg Demeclocycline HCl (Declomycin Tab*) 150 mg PO TID [facility] Last Admin: 05/05/17 21:54 Dose: 150 mg Diltiazem HCl (Cardizem Cd Cap*) 240 mg PO DAILY [facility] Last Admin: 05/05/17 12:32 Dose: 240 mg Guaifenesin/Dextromethorphan (Robitussin Dm*) 10 ml PO Q4H PRN PRN Reason: COUGH Last Admin: 05/03/17 09:03 Dose: 10 ml Heparin Sodium (Porcine) (Heparin Vial(*)) 5,000 units SUBCUT Q8HR [facility] Last Admin: 05/06/17 06:02 Dose: 5,000 units Heparin Sodium (Porcine) (Heparin Flush Picc/Ml/Cvc(*)) 1 ml FLUSH 0600,1800 [facility] PRN Reason: Protocol Last Admin: 05/06/17 06:02 Dose: 1 ml Azithromycin 500 mg/ Sodium (Chloride) 250 mls @ 250 mls/hr IVPB Q24H [facility] Last Admin: 05/05/17 15:22 Dose: 250 mls/hr Oxycodone HCl (Roxycodone Tab*) 5 mg PO Q4H PRN PRN Reason: SEVERE PAIN Last Admin: 05/06/17 02:47 Dose: 5 mg Pharmacy Consult (Zosyn Per Pharmacy*) 1 note FOLLOW UP .ZOSYN PER PHARMACY [facility] Polyethylene Glycol/Electrolytes (Miralax*) 17 gm PO BEDTIME [facility] Last Admin: 05/05/17 21:54 Dose: 17 gm Ramipril (Altace Cap*) 5 mg PO DAILY [facility] Last Admin: 05/05/17 12:33 Dose: 5 mg Sodium Chloride (Sodium Chloride Tab*) 1 gm PO AC [facility] Last Admin: 05/05/17 15:22 Dose: 1 gm Vital Signs 05/05/17 05/05/17 05/05/17 11:31 15:27 15:30 Temperature 97.3 F 98.4 F Pulse Rate 93 82 Respiratory 20 12 18 Rate Blood Pressure 144/72 141/62 (mmHg) O2 Sat by Pulse 95 98 Oximetry 05/05/17 05/05/17 05/05/17 17:23 19:53 19:55 Temperature 98.1 F Pulse Rate 79 Respiratory 22 16 16 Rate Blood Pressure 130/83 (mmHg) O2 Sat by Pulse 98 Oximetry 05/05/17 05/06/17 05/06/17 23:46 02:47 03:07 Temperature 98.0 F Pulse Rate 73 80 Respiratory 20 19 16 Rate Blood Pressure 147/67 (mmHg) O2 Sat by Pulse 91 98 Oximetry 05/06/17 05/06/17 03:45 07:26 Temperature 97.4 F Pulse Rate 89 Respiratory 20 20 Rate Blood Pressure 133/88 (mmHg) O2 Sat by Pulse 96 Oximetry Oxygen Devices in Use Now: Nasal Cannula - 2 liters Appearance: Alert, partly up in bed. Neutral affect. Looks comfortable. L arm immobilizer in place. Eyes: No Scleral Icterus Ears/Nose/Mouth/Throat: Clear Oropharnyx, Mucous Membranes Moist Neck: NL Appearance and Movements; NL JVP, No Thyroid Enlargement, Masses Respiratory: Symmetrical Chest Expansion and Respiratory Effort, - - Decreased BS at both bases Cardiovascular: RRR, No Edema - 1-2/6 systolic murmur RSB Extremities: No Edema, No Clubbing, Cyanosis, - Skin: No Rash or Ulcers, No Nodules or Sclerosis, - Neurological: NL Sensation - She can state her whole name and her age, thought this place was not a hospital but was a "business". She said the season was the Fall. She states she has 2 daughters but could not tell me their names. No tremor. Passive. Result Diagrams: 05/06/17 06:41 05/06/17 05:13 Additional Lab and Data: Lab Results 04/30/17 04/30/17 04/30/17 Range/Units 15:27 15:27 15:27 WBC 8.3 (3.5-10.8) 10^3/ul RBC 3.47 L (4.0-5.4) 10^6/ul Hgb 10.9 L (12.0-16.0) g/dl Hct 32 L (35-47) % MCV 92 (80-97) fL MCH 31 (27-31) pg MCHC 34 (31-36) g/dl RDW 14 (10.5-15) % Plt Count 350 (150-450) 10^3/ul MPV 8 (7.4-10.4) um3 Neut % (Auto) 79.0 (38-83) % Lymph % (Auto) 9.2 L (25-47) % Bremer % (Auto) 8.4 (1-9) % Eos % (Auto) 3.3 (0-6) % Baso % (Auto) 0.1 (0-2) % Absolute Neuts (auto) 6.5 (1.5-7.7) 10^3/ul Absolute Lymphs (auto) 0.8 L (1.0-4.8) 10^3/ul Absolute Monos (auto) 0.7 (0-0.8) 10^3/ul Absolute Eos (auto) 0.3 (0-0.6) 10^3/ul Absolute Basos (auto) 0 (0-0.2) 10^3/ul Absolute Nucleated RBC 0 10^3/ul Nucleated RBC % 0 INR (Anticoag Therapy) 0.99 (0.89-1.11) APTT 30.0 (26.0-36.3) seconds Sodium 112 L* (133-145) mmol/L Potassium TNP Chloride 82 L (101-111) mmol/L Carbon Dioxide 23 (22-32) mmol/L Anion Gap 7 (2-11) mmol/L BUN 18 (6-24) mg/dL Creatinine 0.57 (0.51-0.95) mg/dL Est GFR ( Amer) 131.2 (>60) Est GFR (Non-Af Amer) 102.1 (>60) BUN/Creatinine Ratio 31.6 H (8-20) Glucose 141 H (70-100) mg/dL Lactic Acid (0.5-2.0) mmol/L Calcium 8.6 (8.6-10.3) mg/dL Magnesium 1.7 L (1.9-2.7) mg/dL Total Bilirubin 0.40 (0.2-1.0) mg/dL AST TNP ALT 15 (7-52) U/L Alkaline Phosphatase 86 (34-104) U/L Total Creatine Kinase 152 (10-223) U/L CK-MB (CK-2) 6.9 H (0.6-6.3) ng/mL Troponin I 0.05 H* (<0.04) ng/mL C-Reactive Protein 97.39 H (< 5.00) mg/L B-Natriuretic Peptide ( - 100) pg/mL Total Protein 6.7 (6.4-8.9) g/dL Albumin 2.9 L (3.2-5.2) g/dL Globulin 3.8 (2-4) g/dL Albumin/Globulin Ratio 0.8 L (1-3) Lipase 39 (11.0-82.0) U/L TSH 1.07 (0.34-5.60) mcIU/mL 04/30/17 04/30/17 Range/Units 15:27 15:27 WBC (3.5-10.8) 10^3/ul RBC (4.0-5.4) 10^6/ul Hgb (12.0-16.0) g/dl Hct (35-47) % MCV (80-97) fL MCH (27-31) pg MCHC (31-36) g/dl RDW (10.5-15) % Plt Count (150-450) 10^3/ul MPV (7.4-10.4) um3 Neut % (Auto) (38-83) % Lymph % (Auto) (25-47) % Bremer % (Auto) (1-9) % Eos % (Auto) (0-6) % Baso % (Auto) (0-2) % Absolute Neuts (auto) (1.5-7.7) 10^3/ul Absolute Lymphs (auto) (1.0-4.8) 10^3/ul Absolute Monos (auto) (0-0.8) 10^3/ul Absolute Eos (auto) (0-0.6) 10^3/ul Absolute Basos (auto) (0-0.2) 10^3/ul Absolute Nucleated RBC 10^3/ul Nucleated RBC % INR (Anticoag Therapy) (0.89-1.11) APTT (26.0-36.3) seconds Sodium (133-145) mmol/L Potassium Chloride (101-111) mmol/L Carbon Dioxide (22-32) mmol/L Anion Gap (2-11) mmol/L BUN (6-24) mg/dL Creatinine (0.51-0.95) mg/dL Est GFR ( Amer) (>60) Est GFR (Non-Af Amer) (>60) BUN/Creatinine Ratio (8-20) Glucose (70-100) mg/dL Lactic Acid 1.4 (0.5-2.0) mmol/L Calcium (8.6-10.3) mg/dL Magnesium (1.9-2.7) mg/dL Total Bilirubin (0.2-1.0) mg/dL AST ALT (7-52) U/L Alkaline Phosphatase (34-104) U/L Total Creatine Kinase (10-223) U/L CK-MB (CK-2) (0.6-6.3) ng/mL Troponin I (<0.04) ng/mL C-Reactive Protein (< 5.00) mg/L B-Natriuretic Peptide 366 H ( - 100) pg/mL Total Protein (6.4-8.9) g/dL Albumin (3.2-5.2) g/dL Globulin (2-4) g/dL Albumin/Globulin Ratio (1-3) Lipase (11.0-82.0) U/L TSH (0.34-5.60) mcIU/mL Microbiology and Other Data: Microbiology 04/30/17 17:50 Nasal Screen MRSA (PCR)(DOMINICK) - Final Nasal Mrsa Negative Assess/Plan/Problems-Billing Assessment: Mrs. Damian is an 82 yo F with PMH of HLD, HTN, COPD vs ILD, PVD, MS, breast CA, SIADH, recent admission for left humerus fracture, who was sent to ED with lethargy, found to have severe hyponatremia. - Patient Problems (1) Hyponatremia Current Visit: Yes Status: Acute Code(s): E87.1 - HYPO-OSMOLALITY AND HYPONATREMIA SNOMED Code(s): 45558511 Comment: Urine output 2350 ml 05/05, intake 385 ml. NaCl tablets stopped, demeclocycline reduced to 150 mg daily. BMP 05/07 then q 1-3 days until stable. Fluid restriction 1500 ml/day. (2) Lethargy Current Visit: Yes Status: Acute Code(s): R53.83 - OTHER FATIGUE SNOMED Code(s): 080552729 Comment: Probably at her (new) baseline, likely more alert in AM. I met with daughter Esther, her and son and discussed her dx's, management , prognosis and Palliative Care. (3) Multiple sclerosis Current Visit: Yes Status: Acute Code(s): G35 - MULTIPLE SCLEROSIS SNOMED Code(s): 21909347 Comment: - Continue Amantadine. (4) Hypothyroidism Current Visit: No Status: Acute Code(s): E03.9 - HYPOTHYROIDISM, UNSPECIFIED SNOMED Code(s): 87791433 Comment: TSH wnl 04/30. Continue synthroid (5) Left humeral fracture Current Visit: Yes Status: Acute Code(s): S42.302A - UNSP FRACTURE OF SHAFT OF HUMERUS, LEFT ARM, INIT SNOMED Code(s): 30718697 Comment: Pain control seems adequate. CT shows L humerus greater tuberosity fx 04/19/17. Dr. Vee recommended immobilization for 3-6 weeks and outpatient follow-up. (6) Cardiomyopathy Current Visit: Yes Status: Acute Code(s): I42.9 - CARDIOMYOPATHY, UNSPECIFIED SNOMED Code(s): 47726735 Comment: LVEF 45-50% 05/05/17. BL pleural effusions. Stopping NaCL tablets may be enough in this woman who eats very little and is asymptomatic (other than requiring nasal O2). Also, moderate aortic stenosis present.
[2017-05-06] MEDS: Diltiazem CD CAP* 240 MG PO SCH (08:50)
[2017-05-06] MEDS: Sodium Chloride TAB* 1 GM PO SCH (08:50)
[2017-05-06] MEDS: Atenolol TAB* 50 MG PO SCH (08:50)
[2017-05-06] MEDS: Clopidogrel TAB* 75 MG PO SCH (08:51)
[2017-05-06] MEDS: Ramipril CAP* 5 MG PO SCH (08:51)
[2017-05-06] MEDS: Ascorbic Acid TAB* 500 MG PO SCH (08:51)
[2017-05-06] MEDS: Cholecalciferol TAB* 1000 UNITS PO SCH (08:51)
[2017-05-06] MEDS: Demeclocycline TAB* 150 MG PO SCH (08:52)
[2017-05-06] MEDS: Amantadine LIQ* 50 MG/5 ML UDC PO SCH ×2 (08:52→13:28)
[2017-05-06] MEDS ORDERED: Demeclocycline TAB* 150 MG PO SCH (09:00)
--- NOTE | 2017-05-06 14:58 | DS ---
CC: Dr. Yan; [facility] * DATE OF ADMISSION: 04/30/2017. DATE OF DISCHARGE: 05/06/2017. HISTORY: This 82-year-old woman was transferred from [facility] with lethargy and poor oral intake. She had urinary retention as well. Jordan catheter was inserted and 800 ml was drained. The patient was given Furosemide. Sodium was found to be 113 and the patient was sent to the emergency room. The patient was admitted to the Intensive Care Unit and received hypertonic saline solution. The patient did have some improvement of her confusion, but still has significant memory deficit. She developed shortness of breath. She was found to have bilateral pleural effusions. She is being treated with salt tablets and Demeclocycline. I believe the salt tablets and the hypertonic saline she received probably contributed to the pleural effusions. Echocardiogram showed an ejection fraction of 45 to 50 percent indicating systolic dysfunction. Her TSH was within normal limits on April 30. Dr. Vee has advised continued immobilization of the left arm for a period of three to six weeks since her initial injury, I believe it was 04/19/2017. Due to what seemed an exacerbation of her congestive heart failure, as well as the rise in her sodium to 133 on the day of transfer, I have stopped her sodium chloride tablets and cut her Demeclocycline from three times a day to 150 mg once daily. I recommend that she have basic metabolic profile on 05/07/2017, then every one to three days until she is stable. If her sodium gets above normal, the Demeclocycline should be stopped. If her sodium falls below normal, the Demeclocycline can be titrated upwards, recognizing that it will take several days to achieve its peak effect. FINAL DIAGNOSES: 1. Hyponatremia. 2. Lethargy and/or dementia. 3. Multiple sclerosis. 4. Hypothyroidism. 5. Left humeral fracture. 6. Cardiomyopathy. 7. Urinary retention. DISCHARGE MEDICATIONS: 1. Demeclocycline 150 mg daily. 2. Vitamin D3 1000 units daily. 3. Cetirizine 5 mg daily prn. 4. Citrucel fiber laxative one tablespoon daily. 5. Atenolol 100 mg daily. 6. Acetaminophen 650 mg every 6 hours prn. 7. Ondansetron ODT 4 mg every 8 hours prn. 8. Ascorbic acid 500 mg daily. 9. Calcium Carbonate with vitamin D one tablet b.i.d. 10. Amantadine 100 mg daily. 11. Albuterol 2.5 mg by inhalation every 6 hours prn. 12. Clopidogrel 75 mg daily. 13. Diltiazem CD 240 mg daily. 14. Guaifenesin DM 10 ml every 4 hours prn. 15. Interferon Beta-1 Avonex pen 30 mcg IM every Friday. 16. Methylphenidate 10 mg daily. 17. Polyethylene Glycol 17 mg at bedtime. 18. Ramipril 5 mg daily. The patient is transferred back to [facility] [id number]/[facility] #: [id number] [facility]
[2017-05-06] MEDS: Acetaminophen TAB* 325 MG PO PRN (17:48)
[2017-05-06] MEDS: Polyethylene Glycol 3350* 17 GM PACKET PO SCH (21:10)
[2017-05-07 04:55] LABS: BUN/Creatinine Ratio 50.9 (8-20); Calcium 9.1 mg/dL (8.6-10.3); EGFR African American 142.7 (>60); Potassium 3.7 mmol/L (3.5-5.0)
[2017-05-07] MEDS: Heparin VIAL(*) 5000 UNITS/ML VIAL (FIVE THOUSAND) SUBCUT SCH (06:05)
[2017-05-07 07:38] VITALS: BP 147/83
[2017-05-07] MEDS ORDERED: Sodium Phosphate ADULT ENEMA* 118 ml bottle PR ONE (08:33)
[2017-05-07] MEDS: Demeclocycline TAB* 150 MG PO SCH (08:46)
[2017-05-07] MEDS: Atenolol TAB* 50 MG PO SCH (08:47)
[2017-05-07] MEDS: Diltiazem CD CAP* 240 MG PO SCH (08:47)
[2017-05-07] MEDS: Cholecalciferol TAB* 1000 UNITS PO SCH (08:47)
[2017-05-07] MEDS: Ascorbic Acid TAB* 500 MG PO SCH (08:48)
[2017-05-07] MEDS: Ramipril CAP* 5 MG PO SCH (08:48)
[2017-05-07] MEDS: Clopidogrel TAB* 75 MG PO SCH (08:48)
[2017-05-07] MEDS: Amantadine LIQ* 50 MG/5 ML UDC PO SCH (09:03)
--- NOTE | 2017-05-07 09:14 | PN ---
Progress Note - Progress Note Date of Service: 05/07/17 Note: Time spent on discharge 65 minutes.
--- NOTE | 2017-05-07 15:24 | CONS ---
CC: Primary Care Physician at [facility] * PALLIATIVE CARE CONSULTATION: DATE OF CONSULTATION: 05/07/17 REFERRING PHYSICIAN: Thee Beck MD HOSPITAL COURSE: This is an 82-year-old female who presented to the emergency room on the 30 of April with altered mental status. This is the patient's second admission this month with found to have hyponatremia. The patient presented from [facility]. On admission, the patient was found to have severe hyponatremia with a sodium of 112. They felt this was secondary to SIADH and they felt also there was a pulmonary process contributing to worsening of her SIADH. She was initially admitted to the intensive care unit and started on hypertonic saline. She was also found to have issues with worsening mental status despite her sodium improving. Her infectious workup was unremarkable. UA was negative. There was concern for aspiration pneumonia and she was started on Zosyn and azithromycin. Dr. Araya from Neurology was involved as there was concern that with her lethargy , MS was playing a role in this. He did not feel that it was playing a role as she has not had an exacerbation in 30 years. She did have a Speech Therapy eval twice, the second time was on the , who recommended pureed solids, thin liquids, and no straws. On my encounter, the daughter, Esther, who is the healthcare proxy from [place] was present. I spoke with her at length regarding her mother's deterioration over the past few months, she was up until her last admission earlier this month about 2 weeks ago, ambulating with a walker, and getting out and relatively independent at home with some aide service at her house. With these recent falls and her last admission when she suffered a comminuted fracture of her left humerus, she then went to [facility] and has since deteriorated quite dramatically since then. The daughters noted that her appetite is limited. She was on a regular diet prior to all this and now is on a pureed diet. There is also a lot of significant confusion with her. I asked her if she could tell me who her daughter was and she did not answer appropriately. So when I asked her why she was here, she could not tell me where she was or why she was here and did not make sense in her verbiage. I spoke with the daughter at length as the patient does not have the capacity to make medical decisions regarding her hospice eligibility and she is eligible for hospice with a principal diagnosis of dysphagia secondary to multiple sclerosis and dementia with malnutrition as a secondary diagnosis. Daughter feels that since she was relatively independent up until recently that she would like to have her try rehab for a short-term and if she does not do well, she will have hospice care come to [facility]. We also did review her MOLST form and changed her to a DNR and DNI. On my encounter, the patient denies any pain. She denies any shortness of breath. She states she is hungry. Otherwise, remaining review of systems is negative. PAST MEDICAL HISTORY: 1. Recent admission in April 2017 for comminuted fracture of the great tuberosity of the left humerus and SIADH. 2. History of chronic hyponatremia secondary to SIADH. 3. History of urinary retention with chronic indwelling Jordan secondary to neurogenic bladder due to multiple sclerosis. 4. Hyperlipidemia. 5. Hypertension. 6. COPD versus chronic interstitial lung disease. 7. Peripheral vascular disease, status post angioplasty to the left leg. 8. History of breast cancer, status post lumpectomy and radiation. 9. History of thyroid nodule. 10. History of multiple sclerosis, diagnosed in 1970. 11. Recent history of syncopal episodes with an unremarkable cardiac workup. 12. History of restrictive cardiomyopathy. 13. History of moderate . 14. History of moderate MR. 15. History of moderate TR. MEDICATIONS ON ADMISSION: 1. Tylenol 1000 mg p.o. b.i.d. as needed for pain. 2. Albuterol inhaled every 6 hours as needed for shortness of breath. 3. Amantadine 100 mg in the morning, 50 mg in the afternoon. 4. Ascorbic acid 500 mg p.o. daily. 5. Atenolol 100 mg daily. 6. Calcium carbonate plus vitamin D 1 tab p.o. b.i.d. 7. Cetirizine as needed for allergies. 8. Cholecalciferol 1000 units in the morning. 9. Plavix 75 mg daily. 10. Diltiazem CD 240 mg p.o. daily. 11. Tylenol PM 2 tabs at bedtime as needed. 12. Lasix 20 mg p.o. daily. 13. Guaifenesin 10 mL q.4 hours as needed for cough. 14. Ibuprofen 600 mg every 6 hours as needed for pain. 15. Interferon beta-1a 30 mcg intramuscular on Sundays. 16. Citrucel fiber 1 tablespoon in the morning. 17. Methylphenidate 10 mg daily. 18. Zofran ODT 4 mg q.8 hours as needed for nausea. 19. Oxycodone 5 mg q.4 hours as needed for severe pain. 20. MiraLAX 17 g at bedtime. 21. Ramipril 5 mg p.o. daily. ALLERGIES: SULFA, unknown reaction. FAMILY HISTORY: Mother at age 93 of old age. Father at age 72 from an DE. SOCIAL HISTORY: Up until 2 weeks ago, the patient was living at home, ambulating with a walker, relatively independent with her ADLs, having an aide come in to help with breakfast and some general maintenance of her house. Recently in the past 2 weeks, [facility]. Her daughter, Esther Goncalves, is her healthcare proxy who is from [place], MOLST form now is a DNR/DNI. No history of alcohol, tobacco, or illicit drug use. REVIEW OF SYSTEMS: A 14-point review of systems as mentioned in the HPI, pertinent positives and negatives reviewed; otherwise, negative. PHYSICAL EXAM: Vitals: Temp 97.7, pulse rate 91, respiratory rate 15, oxygen saturation 95% on 2 L, blood pressure 147/83. General: Frail, elderly female, in no acute distress with her daughter at the bedside. HEENT: Head normocephalic. Eyes: Pupils equal and reactive. Anicteric. Oropharynx: Mucous membranes moist. Neck: Supple. No lymphadenopathy. Cardiac: Regular rate and rhythm. Harsh systolic murmur heard, most prominent over the right sternal base. Respiratory: Diminished breath sounds with some fine rhonchorous breath sounds at the bases. Abdomen: Soft, nontender. Extremities: Right lower extremity is contracted with heel bootie in place. No clubbing, cyanosis , or edema. Neurologic: As mentioned alert and oriented x1, oriented to self only. Unable to move her left upper extremity due to humerus fracture, 1/5 mobility of her left lower extremity as this is contracted, 3/5 on her right upper and lower extremity. DIAGNOSTIC STUDIES/LAB DATA: White count 8.2, hemoglobin 12.6, hematocrit 39, platelets 394. INR 0.99. Sodium 134, potassium 3.7, chloride 97, bicarb 32, BUN 27, creatinine 0.53, glucose 126. Albumin on admission 2.9. ASSESSMENT: This is an 82-year-old female with past medical history of COPD on 2L, dementia, and multiple sclerosis with SIADH, who presented to the hospital for the second time this month with altered mental status, found to have worsening SIADH. She has clinically deteriorated quite dramatically over the past 2 weeks with decrease in p.o., worsening dysphagia, and limited mobility with worsening confusion and altered mental status. I spoke with the daughter at length regarding the patient being eligible for hospice with a terminal diagnosis of dysphagia and multiple sclerosis and secondary diagnosis of malnutrition. The daughter would like her to do a trial of rehab at [facility] and if she does not do well, then she will get hospice care involved. We spoke if she does have hospice care involved, changing the MOLST form to do not re-hospitalize and changing it to comfort measures and the daughter is agreeable to this as well as changing her MOLST form currently to DNR/DNI. Our mental health social worker and palliative care team will speak with the daughter with more information regarding hospice care. Thank you for this consultation. PATIENT TIME: Greater than 100 minutes spent doing the consultation, more than half time spent in direct patient contact. [id number]/[facility] #: [id number] [facility]
== END 2017-05-07 12:40 | DRG 643 ==
LOC: ED 14:23 → ICU 15:58 → MEDTELE 05-02 11:39
PROVIDERS: ADMIT Internal Medicine; ATTEND Internal Medicine
DX: E22.2 Syndrome of inappropriate secretion of antidiuretic hormone (principal); I50.23 Acute on chronic systolic (congestive) heart failure; J90 Pleural effusion, not elsewhere classified; E46 Unspecified protein-calorie malnutrition; I42.9 Cardiomyopathy, unspecified; E83.42 Hypomagnesemia; J84.89 Other specified interstitial pulmonary diseases; Z66 Do not resuscitate; E83.51 Hypocalcemia; F03.90 Unspecified dementia, unspecified severity, without behavioral disturbance, psychotic disturbance, mood disturbance, and anxiety; G35 Multiple sclerosis; J44.9 Chronic obstructive pulmonary disease, unspecified; I08.3 Combined rheumatic disorders of mitral, aortic and tricuspid valves; I73.9 Peripheral vascular disease, unspecified; E03.9 Hypothyroidism, unspecified; E78.5 Hyperlipidemia, unspecified; R13.10 Dysphagia, unspecified; S42.252D Displaced fracture of greater tuberosity of left humerus, subsequent encounter for fracture with routine healing; E86.0 Dehydration; I11.0 Hypertensive heart disease with heart failure; E87.6 Hypokalemia; N31.9 Neuromuscular dysfunction of bladder, unspecified; Z85.3 Personal history of malignant neoplasm of breast; Z92.3 Personal history of irradiation; Z88.2 Allergy status to sulfonamides; Z79.02 Long term (current) use of antithrombotics/antiplatelets
CPT/HCPCS: 36415; 71010; 71020; 80048; 80053; 81003; 81015; 82550; 82553; 82570; 83605; 83690; 83735; 83880; 83935; 84145; 84300; 84443; 84484; 85014; 85018; 85025; 85610; 85730; 86140; 87086; 87641; 93005; 93306; A9270-GY; J0456; J0692; J1644; J1940; J2543; J3475; J3480

== ENCOUNTER 2017-05-09 09:39 | Inpatient (IN) | payer MEDICARE, BC ==
--- NOTE | 2017-05-09 10:35 | RAD ---
INDICATION: Sepsis. COMPARISON: Comparison is made with prior studies from May 04, 2017 and May 05, 2017. TECHNIQUE: A portable view of the chest was obtained. FINDINGS: The heart appears mildly enlarged and unchanged from the prior study. There is diffuse prominence of the interstitial markings which are slightly improved. There is a small right pleural effusion and a small to moderate size left pleural effusion which are unchanged. IMPRESSION: FINDINGS MOST CONSISTENT WITH CONGESTIVE HEART FAILURE, SLIGHTLY IMPROVED. THE POSSIBILITY OF SUPERIMPOSED PNEUMONIA CANNOT BE RULED OUT.
[2017-05-09 10:50] LABS: FIO2 2
[2017-05-09 10:53] LABS: PCO2 Arterial 33 mmHg (35-45)
[2017-05-09] MEDS ORDERED: Vancomycin(*) 1,500 MG in NS 0.9% 250 ML* 250 ML IVPB ONE (11:09)
[2017-05-09 11:11] LABS: Hematocrit 43 % (35-47); Hemoglobin 14.3 g/dl (12.0-16.0); Mean Corpuscular HGB Conc 33 g/dl (31-36); Mean Corpuscular Hemoglobin 32 pg (27-31); Mean Corpuscular Volume 95 fL (80-97); Mean Platelet Volume 8 um3 (7.4-10.4); Red Blood Count 4.52 10^6/ul (4.0-5.4); Red Cell Distribution Width 15 % (10.5-15); White Blood Count 7.7 10^3/ul (3.5-10.8)
[2017-05-09 11:20] LABS: Urine Glucose Negative (Negative)
[2017-05-09 11:21] LABS: Urine Bilirubin Negative (Negative); Urine Nitrite Negative (Negative)
[2017-05-09 11:26] LABS: Budding Yeast Present (Absent)
[2017-05-09 11:27] LABS: Urine Bacteria Absent (Absent)
[2017-05-09 11:32] LABS: Albumin 3.4 g/dL (3.2-5.2); BUN/Creatinine Ratio 37.7 (8-20); Calcium 9.8 mg/dL (8.6-10.3); EGFR African American 105.3 (>60); EGFR Non-African American 81.9 (>60); Globulin 4.7 g/dL (2-4); Total Bilirubin 0.7 mg/dL (0.2-1.0); Total Protein 8.1 g/dL (6.4-8.9); Troponin I 0.03 ng/mL (<0.04)
--- NOTE | 2017-05-09 12:16 | RAD ---
HISTORY: Altered mental status COMPARISONS: October 13, 2016 TECHNIQUE: Multiple contiguous axial CT scans were obtained of the head without intravenous contrast. FINDINGS: HEMORRHAGE/INFARCT: There is no hemorrhage or acute infarct. MASSES/SHIFT: There is no mass or shift. EXTRA-AXIAL SPACES: There are no extra-axial fluid collections. SULCI AND VENTRICLES: There is diffuse and proportional enlargement of the sulci and ventricles. CEREBRUM: There is hypoattenuation of the periventricular and subcortical white matter. BRAINSTEM: There are no focal parenchymal abnormalities. CEREBELLUM: There are no focal parenchymal abnormalities. VESSELS: The vessels are grossly normal. PARANASAL SINUSES: The paranasal sinuses are clear. ORBITS: The orbits are unremarkable. BONES AND SOFT TISSUE: No bone or soft tissue abnormalities are noted. OTHER: None IMPRESSION: NO ACUTE INTRACRANIAL PATHOLOGY. DIFFUSE INVOLUTIONAL CHANGE WITH CHRONIC SMALL VESSEL ISCHEMIC CHANGES.
[2017-05-09] MEDS ORDERED: Nitroglycerin TAB 0.4 MG* 0.4 MG TAB SL ONE (12:32)
[2017-05-09] MEDS ORDERED: Nitroglycerin 2% OINT* 1 GM PAK TOPICAL ONE (13:14)
[2017-05-09] MEDS ORDERED: Nitroglycerin 2% OINT* 1 GM PAK ONE (13:15)
[2017-05-09] MEDS ORDERED: Acetaminophen SUPP* 650 MG SUPP PR PRN (13:48)
[2017-05-09] MEDS ORDERED: NS 0.9% 1000 ML* 2,000 ML IV ONE ×2 (13:48→13:53)
[2017-05-09] MEDS ORDERED: Albuterol 2.5 MG/3 ML NEB.SOL* (0.083%) INH PRN (13:52)
[2017-05-09] MEDS ORDERED: hydrALAZINE IV* 20 MG/ML VIAL IV SLOW PU PRN (13:53)
[2017-05-09] MEDS ORDERED: NS 0.9% 250 ML* 250 ML ONE (13:54)
[2017-05-09] MEDS ORDERED: NS 0.9% 1000 ML* 1,000 ML IV SCH (14:00)
[2017-05-09] MEDS ORDERED: Iodixanol* (CONTRAST) 320 MG/ML 100 ML SDV IV ONE ×2 (14:06→18:57)
[2017-05-09] MEDS ORDERED: Vancomycin per Pharmacy* NOTE FOLLOW UP PRN (14:32)
--- NOTE | 2017-05-09 15:25 | RAD ---
HISTORY: Cellulitis, abscess, left side of neck COMPARISONS: None TECHNIQUE: Multiple contiguous axial CT scans were obtained of the neck after the administration of nonionic intravenous contrast, with coronal and sagittal multiplanar reformations. FINDINGS: BRAIN AND ORBITS: There is extensive hypoattenuation of the periventricular and subcortical white matter. PARANASAL SINUSES: The visualized paranasal sinuses are clear. SALIVARY GLANDS: The parotid glands, submandibular glands, sublingual glands are normal. NASAL CAVITY/NASOPHARYNX: The nasal cavity and nasopharynx are normal. ORAL CAVITY/OROPHARYNX: The oral cavity is obscured by streak artifact from dental amalgam. The visualized oral cavity and oropharynx are unremarkable. LARYNGEAL APPARATUS/HYPOPHARYNX: Evaluation limited by patient swallowing motion artifact. UPPER AIRWAY/UPPER ESOPHAGUS: The visualized upper airway and esophagus are normal. LUNG APICES: There are bilateral pleural effusions. There is ground less opacification of the upper lobes bilaterally. THYROID GLAND: The left thyroid gland is not well visualized and may be surgically absent. LYMPH NODES: There is no lymphadenopathy by size criteria. VASCULATURE: The vasculature is unremarkable. BONES AND SOFT TISSUES: Mild degenerative changes are noted of the spine. There is no appreciable inflammatory change or loculated fluid collection OTHER: None. IMPRESSION: 1. NO APPRECIABLE INFLAMMATORY CHANGE OR LOCULATED FLUID COLLECTION IN THE SOFT TISSUES OF THE NECK. 2. CHRONIC SMALL VESSEL ISCHEMIC CHANGE. 3. STATUS POST LEFT HEMITHYROIDECTOMY. 4. BILATERAL PLEURAL EFFUSIONS WITH BIBASILAR AIRSPACE DISEASE
[2017-05-09] MEDS ORDERED: Vancomycin(*) 1,250 MG in NS 0.9% 250 ML* 250 ML IVPB ONE (15:30)
[2017-05-09] MEDS: Cefepime(*) 2 GM in NS 0.9% 50 ML* 50 ML IVPB SCH (16:06)
[2017-05-09] MEDS ORDERED: Labetalol IV* 5 MG/ML 20 ML VIAL IV PUSH PRN (16:48)
[2017-05-09] MEDS ORDERED: NS 0.9% 1000 ML* 1,000 ML IV ONE (16:50)
--- NOTE | 2017-05-09 17:31 | RAD ---
Indication: Abdominal distention. Flat plate of the abdomen demonstrates excretion of contrast in the kidneys bilaterally. There is a relative paucity of gas in the abdomen and fluid-filled bowel loops are not excluded. IMPRESSION: There is a possibility of gas in the abdomen. Fluid-filled loops of bowel are not totally excluded.
[2017-05-09] MEDS: Heparin VIAL(*) 5000 UNITS/ML VIAL (FIVE THOUSAND) SUBCUT SCH ×2 (17:36→22:20)
[2017-05-09] MEDS: Morphine INJ* 2 MG/ML 1 ML SYRINGE IV PRN (20:28)
--- NOTE | 2017-05-09 21:01 | RAD ---
Indication: Abdominal distention. Contrast: Administered 85.2 ml of Contrast -- mg/ml CT of the abdomen and pelvis was performed after IV contrast administration. Coronal and sagittal reconstructed images were obtained. No oral contrast given. Bilateral pleural effusion with bibasilar atelectasis is noted. Heart demonstrates no pericardial effusion. Liver is normal in size. No focal lesions or intrahepatic ductal dilatation. The spleen is normal in size. Gallbladder has been resected. Pancreas demonstrates no mass or pancreatic duct dilatation. No adrenal masses are noted. The kidneys and she symmetric nephrograms with excretion. Bilateral hydroureters are noted. No dilated loops of small bowel are noted. There is stool throughout the colon.. No pelvic adenopathy is noted. No retroperitoneal adenopathy is noted. No hernias are noted. No free air is noted. There is contrast in the rectum. The urinary bladder is distended with trabeculation and bladder diverticulum. The Jordan catheter tip appears to be in place. IMPRESSION: CONTRAST AND FLUID THROUGHOUT THE ABDOMEN BOWEL LOOPS. NO DEFINITE BOWEL OBSTRUCTION IS NOTED. MARKEDLY DISTENDED URINARY BLADDER WITH BLADDER DIVERTICULA. NO DEFINITE BOWEL OBSTRUCTION IS IDENTIFIED. MODERATE SIZED BILATERAL PLEURAL EFFUSIONS ARE NOTED.
[2017-05-09] MEDS: Vancomycin(*) 750 MG in NS 0.9% 250 ML* 250 ML IVPB SCH (22:20)
--- NOTE | 2017-05-09 23:20 | HP ---
CC: Flor Romero NP, [facility]; Dr. Mercado * HISTORY AND PHYSICAL: DATE OF ADMISSION: 05/09/17 PRIMARY CARE PROVIDER: Flor Romero NP ATTENDING PHYSICIAN WHILE IN THE HOSPITAL: Silvia Justice MD * (report dictated by Jourdan Perez NP). CONSULTING PALLIATIVE CARE PHYSICIAN: Dr. Mercado. CHIEF COMPLAINT: Altered mental status. HISTORY OF PRESENT ILLNESS: I would like to preface the report by saying that the patient has a significant amount of altered mental status. She is really unable to give me any history. Most of the history is obtained from reviewing previous hospitalization as she was just here about 48 to 36 hours ago for a prolonged hospitalization secondary to hyponatremia, altered mental status and aspiration pneumonia. She was sent to [facility] for rehab purposes who initially in the first 36 hours in her stay, when she first got there was again very weak, drowsy, lethargic, was taking some very little amounts of p.o., that the first day she got there on Friday. , she was doing better. She got up actually into a chair with PT assistant surveyor. She was eating according to the daughter. Her face was not red. The daughter and she watched TV last night. The daughter left at 9 o'clock, her mother had eaten some, was very small amounts, but was eating and drinking and talking and conversing with her, but this morning, she got a call from [facility] and said that her mother had taken a significant turn for the worse. They had noted that she was more confused. She was lethargic. She was drowsy. She appeared to be having rapid shallow respirations and they noticed that the right side of her face, she had a significant amount of erythema, redness and swelling. There was no reported fevers, vomiting or diarrhea. The patient had been taking her medications up until this morning. They called her daughter and said, we are going to send your mother to the hospital to be reevaluated. She came in here, was noted again to be tachypneic in the 30s. Appeared to have erythema to the right side of her face. She was not at her baseline mentation and we were asked to evaluate for admission. PAST MEDICAL HISTORY: According to records and according to the daughter included: 1. Left humerus fracture sustained on 04/18/17. Since then, has been in subacute rehab before rehabilitation work. 2. Hyponatremia secondary to SIADH. Recently here with a sodium of 115 and AMS. 3. Urinary retention. She has a chronic Jordan. 4. Hyperlipidemia. 5. Aortic stenosis. 6. COPD versus chronic interstitial lung disease. 7. Peripheral vascular disease. 8. Breast cancer. 9. Mitral regurgitation. 10. Tricuspid regurgitation. 11. Restrictive cardiomyopathy. 12. History of AV block with syncopal episodes, but declined further workup. 13. MS. 14. Thyroid nodule. PAST SURGICAL HISTORY: 1. She has had a partial thyroidectomy. 2. Lumpectomy. 3. Angioplasty. HOME MEDICATIONS: According to the list that was sent from [facility] includes: 1. Ramipril 5 mg daily. 2. MiraLAX 17 g p.o. at bedtime. 3. Zofran 4 mg p.o. every 8 hours as needed. 4. Methylphenidate 10 mg p.o. daily. 5. Laxative, Citrucel fiber 1 tablespoon p.o. q.a.m. 6. Interferon beta 1a 30 mcg every Friday. 7. Guaifenesin 10 cc p.o. every 4 hours as needed. 8. Diltiazem 240 mg p.o. daily. 9. Demeclocycline 150 mg daily. 10. Plavix 75 mg daily. 11. Vitamin D3 1000 units p.o. q.a.m. 12. Cetirizine 5 mg p.o. daily as needed. 13. Calcium with vitamin D 1 tablet p.o. b.i.d. 14. Calcium with vitamin D half a tab p.o. in the morning. 15. Atenolol 100 mg p.o. daily. 16. Vitamin C 500 mg p.o. daily. 17. Amantadine 100 mg p.o. daily. 18. Albuterol 2.5 mg inhalers every 6 hours as needed. 19. Tylenol 650 mg every 6 hours as needed. ALLERGIES TO MEDICATION: Include SULFA. FAMILY HISTORY: Mother at the age of 93 from old age. Father had a history of PA. SOCIAL HISTORY: According to daughter, she has never been a smoker, never been a drinker up until this April. In the beginning of April, she was living by herself until she sustained a fall. She was pretty independent with help. She is now residing at [facility]. Her surrogate decision maker is her daughter, Tonia. REVIEW OF SYSTEMS: Unable to be obtained given the patient's altered mental status. PHYSICAL EXAMINATION GENERAL: At this time, Ms. Damian is an 82-year-old female patient. She appears to be in a moderate amount of respiratory distress. She is sitting in the hospital stretcher. She will make eye contact when her name is called, but will not follow commands. VITAL SIGNS: Blood pressure 171/72 with a pulse of 105, respirations were 30, O2 sat 95%, temperature 98.1. HEENT: Head atraumatic. Eyes: Sclerae anicteric. Throat: Oral mucosa appears to be dry. No oropharyngeal erythema. NECK: Supple. LUNGS: Clear to auscultation. No wheezes, rales or rhonchi. HEART: Sounds S1 and S2. She is tachycardic. She does have a grade 2 to 3 murmur in the aortic listening area. ABDOMEN: Soft, flat. Nontender. Bowel sounds present. EXTREMITIES: The left lower extremity is contracted, but the daughter says this is what she does when she is sleeping. She does have distal pulses throughout. No pedal edema was noted. NEUROLOGIC: Again, she was not following commands. She appears to be lethargic. Pupils were equal and reactive. She does have a significant amount of weakness to the left upper extremity. She will not hold the hand and arm about the elbow on the left side. She can move the right side pretty well to command, but again it is a difficult exam because of her overlying mentation. The only focal deficit like finding was her left upper extremity, but again this is an injured extremity from 2 weeks ago. SKIN: Intact. She does have an area of erythema noted on the right side of her face extending from her right face down to her neck. There was no obvious abscess that I could palpate at this point. Otherwise, the skin is intact. LABORATORY DATA/IMAGING: Revealed a WBC of 7.7, RBC of 4.52, hemoglobin of 14.3, hematocrit of 43, platelet count 379. The INR was 0.95, the PTT was 27.6. Her pH was 7.52, her pCO2 was 33, the pO2 was 90. Sodium was 137, potassium was 4, chloride was 97, bicarb 31, BUN 26, creatinine 0.69, glucose was 108, lactic 1.8, calcium 9.8, total bili is 0.7, AST 46, ALT 35, alk phos 110. Troponin 0.03. Albumin was 3.4. Urine showed 2+ leukocyte esterase. There was a brain CT, which showed no acute intracranial pathology, diffuse involutional change with chronic small vessel ischemic changes. There was a chest x-ray obtained today which when I reviewed it, I do depreciate pulmonary edema. It looks improved compared to the previous x-ray. Radiology report was finding most consistent with CHF, slightly improved. Possibility of superimposed pneumonia could not be ruled out. There was an EKG obtained today as well and this shows a normal sinus rhythm with PACs. She had no ST elevations or T-wave inversions noted. Old medical records were reviewed. ASSESSMENT AND PLAN: Ms. Damian is an 82-year-old patient coming into the ER today with complaints of altered mental status, on evaluation found to have a significant cellulitis and found to be septic and tachypneic. We were asked to evaluate for admission. She will be admitted under inpatient status for: 1. Severe sepsis secondary to presumed right facial cellulitis. At this point , I am going to get a CT of the soft tissue, neck and maxillofacial with contrast to make sure there is no abscess formation. We are going to put her on cefepime and vancomycin. She has not received any fluids here in the ED, but I think we need to give her fluids. I do note that she is difficult with her I's and O's. She appears to be dry clinically. She is not making much urine and with the fact that we are worried about sepsis, I think she needs the fluids. I am going to give this to her. I did explain to the daughter that this was risky and they may maker her breathing worse, but if we do not give it to her, she is going to mal-perfuse and could affect other organs and she is aware of this. The plan will be to go ahead and hydrate her. She was cultured here in the ED. I will get the CTs and follow. If there any abscesses, we will obviously get ENT involved and we will continue to follow her closely. I am putting her on Vapotherm as well to help with her tachypnea. 2. Left humerus fracture. Again, we will reinstitute PT when able. 3. Hyponatremia. We will continue to follow sodium closely. 4. Urinary retention. She has a Jordan. 5. Hyperlipidemia. We will continue her current medical regimen. 6. Aortic stenosis, mitral regurg and tricuspid regurg. We will monitor her fluid status closely; but right now, I think she is intravascularly dry. 7. Hypertension. Her blood pressures is in the 170. I will order p.r.n. antihypertensive. 8. History of chronic obstructive pulmonary disease. I have ordered p.r.n. albuterol. 9. Peripheral vascular disease. When she is able to take p.o., we will get her back on her Plavix. 10. History of breast cancer. Not active, follow with her primary. 11. History of multiple sclerosis. We are going to hold her interferon while she is acutely ill like this. I will restart her meds when able. 12. History of thyroid nodule. Follow with her primary. Not an active issue currently. 13. History of cardiomyopathy. Again, we will follow her I's and O's closely and diurese as needed, but I think for the time being, she does need fluids. 14. Goals of care. I did discuss in detail with the family that the patient has had a significant decline in her health in the last 2 weeks as she has required 2 hospitalizations within 48 hours. I explained to them that this infection is quite serious given how fast it has progressed and that she may not recover with antibiotics and fluids and Vapotherm. The family does state that if she has not improved in the next 24 hours, they would consider hospice care and palliative care. I did discuss this with our palliative care physician , Dr. Mercado. She will be evaluating the patient. 15. DVT prophylaxis. I am put her on heparin subcu. 16. Code status. She is a DNR/DNI. 17. Fluids, electrolytes, nutrition. She is NPO until she awakens and then we will certainly get further evaluation. 18. Focal left-sided weakness. Again, this is probably could be an multiple sclerosis flare given the significant infection. I would like to treat the infection as this is the most life threatening disease process going on currently. If the weakness is not improved after treating this and after she turned around with antibiotics, then I would consider getting an MRI of the brain to make sure that there was not any cerebrovascular accident event. At this point, it is so hard to get a good neuro exam and she is so encephalopathic because of the infection. I am going to hold off and treat the infection first. TIME SPENT: Time spent on the admission was approximately 70 minutes, greater than half the time was spent face to face with the patient obtaining my history and physical, the other half of the time was spent on going over the plan of care with the patient and implementing the plan of care. I did discuss the plan of care with my attending, Dr. Justice, she is in agreement. JOURDAN PEREZ, PUMP OPERATOR [employer] [id number]/[facility] #: [id number] WILLIAN
--- NOTE | 2017-05-10 01:26 | CONS ---
CC: [facility] * PALLIATIVE CARE CONSULTATION: DATE OF CONSULT: 05/09/07 PRIMARY CARE PHYSICIAN: [facility]. REFERRING PHYSICIAN: Jourdan Perez NP HISTORY: This is an 82-year-old female who has had two recent admissions, most recent was discharged two days ago for weakness, found to have worsening SIADH with hyponatremia and her initial admission was secondary to comminuted fracture of the greater tuberosity of the left humerus. I did a palliative care consultation on her most recent admission, when she was discharged on the and I spoke at length with her daughter who is from [place], who has been staying with her for several months that she has had a quite a dramatic decline in her performance status and clinical status and the patient states while she was at rehab for two days at the [facility], she was alert and eating but minimal p.o. intake. PT and OT did come to her room, was doing some range of motion exercises, but she still was unable to stand. She did sit in the wheelchair for few hours yesterday. She was awake and alert, watching TV with her daughter but still had a lot of lethargy as she did when she was here in the hospital. The staff at [facility] was concerned about worsening mental status and lethargy and noticed that she had worsening right-sided facial redness and she was brought to the emergency room for further evaluation. On admission, it was concerned that she was having symptoms of respiratory distress. She was very tachypneic and they were concerned for facial cellulitis. They admitted her to the ICU, placed her on Vapotherm with broad- spectrum antibiotics. Patient still has not waken enough to be alert or interactive. The daughter states that her redness of her face seems to have dramatically improved and she seems to be breathing more comfortably on the Vapotherm. Otherwise unable to obtain review of systems due to the patient's altered mental status. PAST MEDICAL HISTORY: 1. As mentioned recent admission from 04/30 to 05/07 for acute on chronic hyponatremia secondary to SIADH. 2. Recent admission earlier in April for comminuted fracture of the greater tuberosity of left humerus. 3. History of urinary retention with chronic indwelling Jordan secondary to neurogenic bladder due to multiple sclerosis. 4. Hyperlipidemia. 5. Hypertension. 6. COPD versus chronic interstitial lung disease. 7. History of peripheral vascular disease, status post angioplasty of the left lung. 8. History of breast cancer, status post lumpectomy and radiation. 9. History of thyroid cancer. 10. History of MS diagnosed in 1970. 11. History of recent syncopal episode with unremarkable cardiac workup. 12. History of restrictive cardiomyopathy. 13. History of moderate . 14. History of moderate TR. 15. History of moderate MR. MEDICATIONS: Inpatient medications: 1. Tylenol suppository 650 mg every 4 hours as needed. 2. Albuterol 2.5 mg inhaled q.6 hours as needed. 3. Heparin subcu 5000 units t.i.d. 4. Labetalol 10 mg q.6 hours as needed for blood pressure. 5. Cefepime 2 g q.12 hours. 6. IV fluids 100 cc an hour. 7. Vancomycin 750 mg q.8 hours. ALLERGIES: SULFA DRUGS. FAMILY HISTORY: Mother at age 93 of old age. Father at age 72 from an [place]. SOCIAL HISTORY: Patient was living at home independently up until a month ago when she had her humerus fracture and since then has been in and out of the hospital and in [facility]. Prior to her rehab facility [facility] , she was ambulating with a walker and was relatively independent of her ADLs having an aide coming to the house. No history of alcohol, tobacco, illicit drug use. Her healthcare proxy is her daughter, Esther Goncalves. Her MOLST form is DNR/DNI with no changes to it. REVIEW OF SYSTEMS: Unable to obtain due to patient's altered mental status. PHYSICAL EXAM: Temp 98.4, pulse rate 105, respiratory rate 23, oxygen saturation 100% on 4 L of 100% FiO2 on Vapotherm, blood pressure 171/102. General: Frail elderly female, in no acute distress. Unresponsive to verbal and tactile stimuli. HEENT: Head normocephalic. Pupils are reactive. Conjunctivae anicteric. No injection. Mucous membranes are dry. Neck: Supple. No adenopathy. Cardiac: Tachycardiac. Soft systolic murmur heard throughout. Respiratory: Rhonchorous breath sounds bilaterally. No increased work of breathing. Abdomen: Hypoactive bowel sounds, distention and firm. Extremities: Patient contracted lower extremities and heel booties. No lower extremity edema. Her right upper extremity is strapped to her chest due to the her humerus fracture. Patient is not awake. She cannot verbalize and she is not moving any extremities spontaneously or able to follow any commands. Derm: The patient has some mild erythema on the right side of her face. No swelling or warmth. DIAGNOSTIC STUDIES/LAB DATA: White count 7.7, hemoglobin 14.3, hematocrit 43, platelets 279. Sodium 0.95. Blood gas, pH 7.52, pCO2 33, pO2 90. Sodium 137, potassium 4, chloride 97, bicarb 31, BUN 26, creatinine 0.69. RADIOGRAPHIC DATA: Head CT, no acute intracranial pathology, diffuse involutional change with chronic small vessel ischemic changes. CT shows no appreciable inflammatory change or loculated fluid collection in soft tissues of the neck. Chronic small vessel ischemic changes, status post left hemithyroidectomy, bilateral pleural effusions with bibasilar airspace disease. Chest x-ray, findings most consistent with congestive heart failure slightly improved. The possibility of superimposing pneumonia cannot be ruled out. ASSESSMENT: This is an 82-year-old female who has had a dramatic decline in her clinical status with recurrent hospitalizations over the past two weeks, who presents for the third time over the month now with worsening altered mental status concern for possible facial cellulitis with her presenting symptoms. She also with respiratory distress and increased work of breathing. I question if she has some aspiration pneumonitis as she was initially NPO during her last hospitalization and then was modified to a pureed diet. I did speak with the daughter at length regarding my concern that she will not survive this hospitalization. We talked about waiting to see over the next 24 to 48 hours if she will perk up with IV fluids and antibiotics and if that she does not that her quality of life will not improve and that we should talk about comfort measures only. The daughter is agreeable to this and I will sign out to the Hospitalist to have this discussion daily with the daughter. The other daughter is taking from [place] and should be here tomorrow to see her mother, also will be part of the clinical decision making. She still remains DNR/DNI, agree with keeping her NPO until if she does become more alert and then having speech swallow eval. I did put in for abdominal film as she appears firm and distended. I am also going to put in for low-dose morphine as needed for pain, discomfort, or shortness of breath. Thank you for this consultation. I will follow along with your. PATIENT TIME: Greater than 90 minutes was spent doing the consultation, more than half time was spent in direct patient contact. [id number]/[facility] #: [id number] MTDD
[2017-05-10] MEDS: Cefepime(*) 2 GM in NS 0.9% 50 ML* 50 ML IVPB SCH ×2 (01:30→14:46)
[2017-05-10] MEDS: Morphine INJ* 2 MG/ML 1 ML SYRINGE IV PRN ×2 (01:30→20:50)
[2017-05-10 05:19] LABS: Hematocrit 34 % (35-47); Mean Corpuscular HGB Conc 33 g/dl (31-36); Mean Corpuscular Hemoglobin 31 pg (27-31); Mean Corpuscular Volume 95 fL (80-97); Mean Platelet Volume 8 um3 (7.4-10.4); Red Blood Count 3.55 10^6/ul (4.0-5.4); Red Cell Distribution Width 15 % (10.5-15); White Blood Count 21.4 10^3/ul (3.5-10.8)
[2017-05-10 05:20] LABS: Add Diff/Slide Review? Slide Review Added; Comments Flag Yes
[2017-05-10 05:34] LABS: BUN/Creatinine Ratio 33.7 (8-20); Calcium 7.6 mg/dL (8.6-10.3); EGFR African American 85.1 (>60); EGFR Non-African American 66.1 (>60)
[2017-05-10] MEDS ORDERED: NS 0.9% 250 ML* 250 ML ONE (05:35)
[2017-05-10] MEDS ORDERED: NS 0.9% 50 ML* 50 ML ONE (05:35)
[2017-05-10] MEDS: Vancomycin(*) 750 MG in NS 0.9% 250 ML* 250 ML IVPB SCH ×3 (05:39→22:55)
[2017-05-10] MEDS: Heparin VIAL(*) 5000 UNITS/ML VIAL (FIVE THOUSAND) SUBCUT SCH ×3 (05:39→22:55)
[2017-05-10 06:12] LABS: Immature Granulocytes 14 % (0-9); Neutrophil % 82 % (38-83); RBC Morphology Normal (Normal)
[2017-05-10] MEDS ORDERED: NS 0.9% 500 ML BAG* 500 ML IV ONE (06:37)
--- NOTE | 2017-05-10 07:32 | PN ---
Subjective Date of Service: 05/10/17 Interval History: HOSPITALIST PROGRESS NOTE Patient seen and examined at bedside. She is unresponsive at this time. Had hypotension overnight requiring IVF bolus , received some Morphine for respiratory distress. Family History: Unchanged from Admission Social History: Unchanged from Admission Past Medical History: Unchanged from Admission Objective Active Medications: Acetaminophen (Tylenol Supp*) 650 mg KY Q4H PRN PRN Reason: FEVER/PAIN Last Admin: 05/10/17 04:02 Dose: 650 mg Albuterol (Ventolin 2.5 Mg/3 Ml Neb.Adeline*) 2.5 mg INH Q6H PRN PRN Reason: SHORTNESS OF BREATH Heparin Sodium (Porcine) (Heparin Vial(*)) 5,000 units SUBCUT Q8HR [facility] Last Admin: 05/10/17 05:39 Dose: 5,000 units Cefepime HCl 2 gm/ Sodium (Chloride) 50 mls @ 100 mls/hr IVPB Q12H [facility] Last Admin: 05/10/17 01:30 Dose: 100 mls/hr Vancomycin HCl 750 mg/ Sodium (Chloride) 250 mls @ 166.667 mls/hr IVPB Q8H [facility] Last Admin: 05/10/17 05:39 Dose: 166.667 mls/hr Sodium Chloride (Ns 0.9% 1000 Ml*) 1,000 mls @ 125 mls/hr IV PER RATE [facility] Labetalol HCl (Trandate Iv*) 10 mg IV PUSH Q6H PRN PRN Reason: BLOOD PRESSURE Last Admin: 05/09/17 20:55 Dose: 10 mg Morphine Sulfate (Morphine Inj (Syringe)*) 2 mg IV Q4H PRN PRN Reason: PAIN - MILD Last Admin: 05/10/17 01:30 Dose: 2 mg Pharmacy Consult (Vancomycin Per Pharmacy*) 1 note FOLLOW UP . PRN PRN Reason: PER PROTOCOL Pharmacy Profile Note (Vancomycin Trough Check) 1 note FOLLOW UP 1330 ONE Stop: 05/10/17 13:31 Vital Signs 05/10/17 05/10/17 05/10/17 03:45 04:00 04:30 Temperature 100.2 F Pulse Rate 118 120 117 Respiratory 33 34 33 Rate Blood Pressure 103/51 105/70 100/48 (mmHg) O2 Sat by Pulse 100 100 99 Oximetry Oxygen Devices in Use Now: High Flow Nasal Cannula - 40 liters FiO2 100% Appearance: Elderly lady lying in bed in NAD. Ears/Nose/Mouth/Throat: Mucous Membranes Moist Neck: Trachea Midline Respiratory: Symmetrical Chest Expansion and Respiratory Effort, - - BS+ bilaterally coarse Cardiovascular: RRR - Normal S1 and S2, tachy Abdominal: - - Mild distention, NT, BS+ hypoactive Neurological: - - Unresponsive Lines/Tubes/Other Access: Clean, Dry and Intact Peripheral IV Result Diagrams: 05/10/17 05:10 05/10/17 05:10 Assess/Plan/Problems-Billing Assessment: Mrs. Damian is an 82 yo F with PMH of HLD, HTN, COPD vs ILD, PVD, MS, breast CA, SIADH, recent admission for left humerus fracture, severe hyponatremia, admitted with right facial cellulitis. - Patient Problems (1) Severe sepsis Comment: - Met sepsis criteria on admission with tachycardia and tachypnea. - Source is facial cellulitis. (2) Facial cellulitis Comment: - Erythema is improving, but she now has leukocytosis with bandemia. - Hypotensive overnight, responding to small fluid bolus. - Continue Vanco/Cefepime. - Blood cultures showed no growth so far. (3) SIADH (syndrome of inappropriate ADH production) Comment: - Sodium remains normal. (4) DVT prophylaxis Comment: - SQ heparin. (5) DNR (do not resuscitate) Status and Disposition: Inpatient for management of life threatening infection, requiring >48h for stabilization.
[2017-05-10] MEDS: NS 0.9% 1000 ML* 1,000 ML IV SCH ×2 (11:55→22:29)
[2017-05-10] MEDS ORDERED: Vancomycin Trough Check NOTE FOLLOW UP ONE (13:30)
--- NOTE | 2017-05-10 14:20 | PN ---
Hospitalist Progress Note HOSPITALIST ADDENDUM Lengthy conversation with patient's daughters Tonia and Shayla. They're aware of their mother's diagnoses and understand her poor prognosis. After reviewing available options, plan is as follows: - If she has worsening of her condition today/tonight, would convert her to comfort care at that time; - If no significant improvement by tomorrow morning, would convert her to comfort care then. Will continue IVF, antibiotics, supplemental O2 and continue to monitor closely.
[2017-05-11] MEDS: Cefepime(*) 2 GM in NS 0.9% 50 ML* 50 ML IVPB SCH (02:03)
[2017-05-11 05:44] LABS: Hematocrit 34 % (35-47); Hemoglobin 10.6 g/dl (12.0-16.0); Mean Corpuscular HGB Conc 31 g/dl (31-36); Mean Corpuscular Hemoglobin 30 pg (27-31); Mean Corpuscular Volume 97 fL (80-97); Mean Platelet Volume 8 um3 (7.4-10.4); Red Blood Count 3.49 10^6/ul (4.0-5.4); Red Cell Distribution Width 16 % (10.5-15); White Blood Count 24.6 10^3/ul (3.5-10.8)
[2017-05-11 05:45] LABS: Add Diff/Slide Review? Slide Review Added; Comments Flag Yes
[2017-05-11 05:57] LABS: BUN/Creatinine Ratio 45.6 (8-20); Calcium 7.7 mg/dL (8.6-10.3); EGFR African American 107.1 (>60); EGFR Non-African American 83.3 (>60); Potassium 3.5 mmol/L (3.5-5.0)
[2017-05-11] MEDS: Vancomycin(*) 750 MG in NS 0.9% 250 ML* 250 ML IVPB SCH (06:08)
[2017-05-11] MEDS: Heparin VIAL(*) 5000 UNITS/ML VIAL (FIVE THOUSAND) SUBCUT SCH (06:08)
--- NOTE | 2017-05-11 08:03 | PN ---
Subjective Date of Service: 05/11/17 Interval History: HOSPITALIST PROGRESS NOTE Patient seen and examined at bedside. Remains unresponsive, more dyspneic, does not appear to be comfortable. Family History: Unchanged from Admission Social History: Unchanged from Admission Past Medical History: Unchanged from Admission Objective Active Medications: Acetaminophen (Tylenol Supp*) 650 mg NV Q4H PRN PRN Reason: FEVER/PAIN Last Admin: 05/10/17 04:02 Dose: 650 mg Albuterol (Ventolin 2.5 Mg/3 Ml Neb.Adeline*) 2.5 mg INH Q6H PRN PRN Reason: SHORTNESS OF BREATH Heparin Sodium (Porcine) (Heparin Vial(*)) 5,000 units SUBCUT Q8HR ANKUR Last Admin: 05/11/17 06:08 Dose: 5,000 units Cefepime HCl 2 gm/ Sodium (Chloride) 50 mls @ 100 mls/hr IVPB Q12H [facility] Last Admin: 05/11/17 02:03 Dose: 100 mls/hr Vancomycin HCl 750 mg/ Sodium (Chloride) 250 mls @ 166.667 mls/hr IVPB Q8H [facility] Last Admin: 05/11/17 06:08 Dose: 166.667 mls/hr Sodium Chloride (Ns 0.9% 1000 Ml*) 1,000 mls @ 125 mls/hr IV PER RATE [facility] Last Admin: 05/10/17 22:29 Dose: 125 mls/hr Labetalol HCl (Trandate Iv*) 10 mg IV PUSH Q6H PRN PRN Reason: BLOOD PRESSURE Last Admin: 05/09/17 20:55 Dose: 10 mg Morphine Sulfate (Morphine Inj (Syringe)*) 2 mg IV Q4H PRN PRN Reason: PAIN - MILD Last Admin: 05/10/17 20:50 Dose: 2 mg Pharmacy Consult (Vancomycin Per Pharmacy*) 1 note FOLLOW UP . PRN PRN Reason: PER PROTOCOL Pharmacy Profile Note (Vancomycin Trough Check) 1 note FOLLOW UP 06 ONE Stop: 05/12/17 06:01 Vital Signs 05/11/17 05/11/17 05/11/17 06:31 07:00 07:26 Temperature 100.1 F Pulse Rate 124 121 Respiratory 33 32 Rate Blood Pressure 133/87 (mmHg) O2 Sat by Pulse 95 96 Oximetry 05/11/17 05/11/17 07:31 07:53 Temperature Pulse Rate 127 Respiratory 34 28 Rate Blood Pressure (mmHg) O2 Sat by Pulse 95 Oximetry Oxygen Devices in Use Now: High Flow Nasal Cannula - 40 liters FiO2 100% Appearance: Elderly lady lying in bed, tachypneic and diaphoretic. Eyes: No Scleral Icterus Neck: Trachea Midline Respiratory: Symmetrical Chest Expansion and Respiratory Effort, - - BS+ bilaterally coarse Cardiovascular: - - Normal S1 and S2, irregularly irregular, tachycardic Abdominal: - - Mild distention, NT, BS hypoactive Extremities: - - Moderate bilatera UE and LE edema Neurological: - - Unresponsive Lines/Tubes/Other Access: Clean, Dry and Intact Peripheral IV Result Diagrams: 05/11/17 05:30 05/11/17 05:30 Assess/Plan/Problems-Billing Assessment: Mrs. Damian is an 82 yo F with PMH of HLD, HTN, COPD vs ILD, PVD, MS, breast CA, SIADH, recent admission for left humerus fracture, severe hyponatremia, admitted with right facial cellulitis. - Patient Problems (1) Severe sepsis Comment: - Met sepsis criteria on admission with tachycardia and tachypnea. - Source is facial cellulitis. (2) Facial cellulitis Comment: - Erythema is improving, but leukocytosis is worse, SO2 is dropping. - BP is a little better, but showing signs of fluid overload. - D/c Vanco/Cefepime. - Blood cultures showed no growth so far. (3) SIADH (syndrome of inappropriate ADH production) Comment: - Sodium remains normal. (4) DVT prophylaxis Comment: - SQ heparin. (5) DNR (do not resuscitate) (6) End of life care Comment: - Another lengthy conversation with daughters Tonia and Shayla. Explained patient's condition continues to worse, with increase in leukocytosis , desaturation, ileus, despite aggressive therapy. Patient appears uncomfortable. We discussed options and decision is to transition her to comfort care. They're very clear patient would want a trial of aggresive treatment, but no prolonged trial, especially if she would not be able to live independently after discharge. - Will stop IVF, antibiotics, increase Morphine, add Ativan and Atropine, titrate Vapotherm off and transfer to medical floor. Status and Disposition: Inpatient for management of life threatening infection, requiring >48h for stabilization.
[2017-05-11] MEDS ORDERED: LORazepam INJ* 2 MG/ML 1 ML VIAL IV PUSH PRN (08:04)
[2017-05-11] MEDS: Morphine INJ* 10 MG/ML 1 ML SYRINGE IV PRN ×5 (08:19→22:55)
[2017-05-11] MEDS ORDERED: Morphine ORAL CONCENTRATE* 5 MG/0.25 ML ORAL.SYRIN SL PRN (12:49)
[2017-05-11] MEDS: Atropine 1% (ORAL/SL)* 15 ML BTL SL PRN (12:52)
[2017-05-12] MEDS: Morphine INJ* 10 MG/ML 1 ML SYRINGE IV PRN ×6 (00:38→08:42)
[2017-05-12] MEDS: Atropine 1% (ORAL/SL)* 15 ML BTL SL PRN (00:52)
[2017-05-12] MEDS ORDERED: Vancomycin Trough Check NOTE FOLLOW UP ONE (06:00)
[2017-05-12] MEDS ORDERED: Ketorolac INJ* 30 MG/ML 1 ML VIAL IV PUSH ONE (09:16)
[2017-05-12] MEDS ORDERED: Morphine INJ* 10 MG/ML 1 ML SYRINGE IV PRN (09:17)
[2017-05-12] MEDS ORDERED: Morphine ORAL CONCENTRATE* 5 MG/0.25 ML ORAL.SYRIN SL PRN (09:17)
[2017-05-12 10:31] VITALS: BP 108/41
--- NOTE | 2017-05-12 22:34 | DS ---
CC: Flor Romero NP; Dr. Luz Berger at [facility] * DISCHARGE SUMMARY/ NOTE: DATE OF ADMISSION: 05/09/17 DATE OF : 05/12/17 PRIMARY CARE PROVIDER: Flor Romero NP. DISCHARGE DIAGNOSES: 1. Severe sepsis. 2. Facial cellulitis. 3. Acute respiratory failure. 4. Leukocytosis with bandemia. SECONDARY DIAGNOSES: 1. Left humerus fracture on 04/18/17. 2. Hyponatremia secondary to syndrome of inappropriate secretion of antidiuretic hormone. 3. Urinary retention, likely secondary to neurogenic bladder associated with multiple sclerosis with a chronic Jordan. 4. Hyperlipidemia. 5. Aortic stenosis. 6. Chronic obstructive pulmonary disease. 7. Peripheral vascular disease. 8. History of breast cancer. 9. Restrictive cardiomyopathy. 10. History of AV block with syncopal episodes, but the patient declined further workup. 11. Multiple sclerosis. 12. History of thyroid nodule. HOSPITAL COURSE: Mrs. Damian was an 82-year-old lady, with a past medical history as stated above, that initially presented to the emergency room on 04/19. She had sustained a fall at home and complained of left shoulder pain. She was found to have a left shoulder dislocation with probable fracture of the greater tuberosity. This was managed in the emergency room, but the patient could not ambulate with her walker at home. So for that reason, she was admitted and on 04/22/17, she was discharged to [facility] for rehab. While at [facility], the patient was diagnosed with pneumonia treated with levofloxacin and she was also felt to have fluid overload, so she received furosemide. She developed lethargy and was found to be severely hyponatremic with the sodium of 112, likely secondary to a combination of her known SIADH plus pulmonary process plus furosemide use. The patient initially received hypertonic saline, later on IV fluids, and eventually she had improvement of her hyponatremia, and on 05/06/17, she was discharged back to [facility] to continue her rehabilitation process. During that admission, the patient was seen by palliative care, but at that point, her family was still interested in aggressive treatment, but they were open to talk about palliative care if her condition continued to decline. On 05/09/17, the patient was sent back to the emergency room as she was more lethargic and had developed right-sided facial edema and erythema. This was described as very sudden as her daughter had seen her the night before and the patient seemed to be doing well, and the next morning, she was found to be very lethargic and had developed this edema and erythema to her face. She was admitted under the impression of severe sepsis secondary to right facial cellulitis. She was admitted to the intensive care unit, started on aggressive antibiotic therapy, IV fluid resuscitation, Vapotherm, but her condition continued to decline. She was once again seen by Palliative Care and the initial plan was for 48 hours of aggressive treatment, and if she had no improvement, then plan would be for comfort care measures only and that is what happened. The patient became unresponsive. She was hypotensive, responding to fluids, but her oxygen saturation became worse requiring Vapotherm at 40 L, 100 % FiO2, and despite vancomycin and cefepime, her white cell count continued to trend up. After multiple conversations with the patient's daughters (Tonia and Shayla), the decision was made to convert her to comfort care and the patient comfortably surrounded by her daughters on 05/12/17 at 09:45 a.m. Please keep in mind this is a summarized version of this patient's hospital stay. If you need more information, please feel free to call me at [phone] or please obtain the full medical records. TIME SPENT: Approximately 55 minutes was spent to complete this discharge. [id number]/CPS #: [id number]
== END 2017-05-12 09:45 | disposition expired | DRG 871 ==
LOC: ED 09:39 → ICU 13:40 → MED 05-11 15:30
PROVIDERS: ADMIT Internal Medicine; ATTEND Internal Medicine
PROC: 5A09457 Assistance with Respiratory Ventilation, 24-96 Consecutive Hours, Continuous Positive Airway Pressure (ICD-10-PCS; principal; 2017-05-10)
DX: A41.9 Sepsis, unspecified organism (principal); J96.00 Acute respiratory failure, unspecified whether with hypoxia or hypercapnia; I95.9 Hypotension, unspecified; I42.5 Other restrictive cardiomyopathy; G35 Multiple sclerosis; E22.2 Syndrome of inappropriate secretion of antidiuretic hormone; L03.211 Cellulitis of face; J44.9 Chronic obstructive pulmonary disease, unspecified; R65.20 Severe sepsis without septic shock; S42.252D Displaced fracture of greater tuberosity of left humerus, subsequent encounter for fracture with routine healing; W18.30XD Fall on same level, unspecified, subsequent encounter; N31.9 Neuromuscular dysfunction of bladder, unspecified; R33.8 Other retention of urine; E78.5 Hyperlipidemia, unspecified; I73.9 Peripheral vascular disease, unspecified; I44.30 Unspecified atrioventricular block; I08.3 Combined rheumatic disorders of mitral, aortic and tricuspid valves; Z85.3 Personal history of malignant neoplasm of breast; E04.1 Nontoxic single thyroid nodule; Z79.01 Long term (current) use of anticoagulants; Z79.1 Long term (current) use of non-steroidal anti-inflammatories (NSAID); Z79.899 Other long term (current) drug therapy; Z88.2 Allergy status to sulfonamides; Z82.49 Family history of ischemic heart disease and other diseases of the circulatory system; Z66 Do not resuscitate; Z85.850 Personal history of malignant neoplasm of thyroid
CPT/HCPCS: 36415; 70450; 70491; 71010; 74000; 74177; 80048; 80053; 80202; 81003; 81015; 82803; 83605; 83880; 84145; 84484; 85025; 85610; 85730; 87040; 87086; 87106; 87641; 93005; 94760; A9270-GY; J0692; J1644; J1885; J2060; J2270; J2543; J3370; Q9967